=== PATIENT | male | born 1935 | race Caucasian/White ===

== ENCOUNTER 2025-06-05 04:46 | Emergency (ER) | payer MEDICARE, MEDICAID, SELFPAY ==
[2025-06-05] VITALS (7 sets, daily range): BP systolic 71–125; BP diastolic 44–56; PULSE 55–66; RESP 13–24; TEMP 36.3–36.4; O2SAT 92–99
--- NOTE | ~2025-06-05 | XR_ITS ---
XR chest 1V portable 06/05/2025 05:13 Indication: Status post fall. Trauma. Right-sided chest pain. Procedure: AP portable chest Comparison: 07/22/2014 Findings: Small right apical pneumothorax. There is right basilar consolidation which may represent hemorrhage or contusion given the history. Large amount of subcutaneous gas right neck and chest wall. There are multiple right rib fractures including the fifth-ninth ribs. The seventh and eighth rib fractures are displaced. Status post median sternotomy for CABG. Heart size normal. Left lung clear. Impression: 1: Multiple acute right rib fractures with displacement of the right seventh and eighth rib fractures. 2: Small right apical pneumothorax. 3: Right basilar consolidation may represent hemorrhage, contusion or less likely pneumonia. 4: Extensive subcutaneous emphysema of the right neck and chest wall. Reviewed, dictated and finalized at location O. Impression: 1: Multiple acute right rib fractures with displacement of the right seventh an d eighth rib fractures. 2: Small right apical pneumothorax. 3: Right basilar consolidation may represent hemorrhage, contusion or less like ly pneumonia. 4: Extensive subcutaneous emphysema of the right neck and chest wall.
--- NOTE | 2025-06-05 05:00 | PC.NURSE ---
DR CHAVEZ AT THE BEDSIDE. CREPITIS NOTED TO RIGHT CHEST WALL. TENDERNESS TO RIGHT CHEST WALL
--- NOTE | 2025-06-05 05:08 | PC.NURSE ---
XRAY AT THE BEDSIDE
--- NOTE | 2025-06-05 05:10 | PC.NURSE ---
DR CHAVEZ REQUESTED TRAUMA SERVICES AT [facility] DUE TO MULTIPLE RIGHT SIDE RIB FRACTURES, CREPITIS, POSSIBLE PNEUMOTHORAX
--- NOTE | 2025-06-05 05:12 | ED_ITS ---
HPI - Fall General Chief Complaint: Fall Stated Complaint: fall at home Time Seen by Provider: 06/05/25 05:08 Source: patient and family Limitations: no limitations History of Present Illness HPI Narrative: 89 years old white male came to the ED by private car from home with right chest pain after falling on pH of a Pap top Related Data Allergies Allergy/AdvReac Type Severity Reaction Status Date / Time No Known Allergies Allergy Verified 06/05/25 05:12 Review of Systems Review of Systems: All systems reviewed & are unremarkable except as noted in HPI and below Exam Narrative: General appearance: Well-developed, well-nourished Skin: pale skin Head: Normocephalic, nontraumatic Eyes: Clear conjunctiva ENT: Oropharynx normal, ears normal, nose normal Neck: Supple, nontender Chest and respiratory: Airway patent, no respiratory distress, no accessory muscle use, right subcutaneous emphysema severe tenderness of the right chest, no bruises or swelling or rash Heart: Regular rate/rhythm Abdomen: Soft, nontender, no organomegaly, quiet bowel sounds Vascular: Normal peripheral pulses, normal capillary refill. Musculoskeletal: Normal range of motion, nontender back Neurologic: Alert and oriented ?3, DIRECTOR SAFETY is normal as tested, no gross motor deficit Course Vital Signs Vital signs: Vital Signs Temperature 36.4 C 06/05/25 04:45 Pulse Rate 66 06/05/25 04:45 Respiratory Rate 18 06/05/25 04:45 Blood Pressure 85/52 L 06/05/25 04:45 Pulse Oximetry 98 06/05/25 04:45 Oxygen Delivery Room Air 06/05/25 04:45 Temperature 36.4 C 06/05/25 04:45 Pulse Rate 60 06/05/25 05:47 Respiratory Rate 22 H 06/05/25 05:47 Blood Pressure 125/51 L 06/05/25 05:47 Pulse Oximetry 99 06/05/25 05:47 Oxygen Delivery Nasal Cannula 06/05/25 05:32 Oxygen Flow Rate 2 06/05/25 05:32 MDM - Fall MDM Narrative Medical decision making narrative: patient came to the ED after having a fall against the bath top at home. Vital signs showing blood pressure 85/52, otherwise insignificant Physical examination showing severe tenderness right chest and subcutaneous emphysema Differential diagnosis rib fracture, flail chest liver injury, pulmonary contusion, pneumothorax, hemothorax Chest portable chest x-ray showed multiple right rib fracture and subcutaneous emphysema normal saline IV started, blood pressure is improving, currently 106/55, oxygenation 99% on 2 L Patient is accepted to [facility] discussed with Dr. Kent Differential Diagnosis Differential diagnosis: Likely other ( as above) Imaging Data My impression: portable chest x-ray showed multiple rib fracture on the right side with extensive subcutaneous emphysema Critical Care Time Critical Care Time Critical Care Time: Yes Total Critical Care Time: 30 Discharge Plan Discharge Clinical Impression: Acute traumatic injury of chest wall, Subcutaneous emphysema due to trauma Patient Disposition: Acute Care Hospital Condition: Guarded Prognosis Additional Instructions: transfer to [facility] Patient Language: [place] Follow-up/Referrals: Valentin Braswell MD [Primary Care Provider, Internal Medicine]
[2025-06-05] MEDS: SODIUM CHLORIDE 0.9% IV 1,000 ML 999 ML IV CONT (05:17)
--- OUTSIDE RECORDS SUMMARY | 2025-06-05 05:40 | XMS_ITS | Encounter Summary ---
Author Organization [facility] Address [address] [place] [address] Phone Care Team Providers Care Director Of Student Aid Name Role Phone Susana Estrada MD Primary Care Provider [phone] Valentin Braswell MD Primary Care Provider [phone] Encounter Details Date Type Department Care Team (Late st Contact Info) Description 12/13/2017 Orders Only [facility] ProviderTrip MD [address] [place] [address] Social History Tobacco Use Types Packs/Day Years Used Date Smoking Tobacco: Former Sex and Gender Information Value Date Recorded Sex Assigned at Not on file 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 Historical Provider [facility] PROCE DURES Final Result * CARDIOLOGY REPORT (12/13/2017) Anatomical Region Laterality Modality Other Narrative 12/13/2017 Ordered by an unspecified provider. Historical Provider CV CARDIAC SERVICES PROCE DURES Final Result documented in this encounter Visit Diagnoses Not on filedocumented in this encounter Care Teams Director Of Student Aid Relationship Specialty Start Date End Date Susana Estrada MD [address] [place] [address] PCP - General 02/13/17 02/05/24 Valentin Braswell MD [address] [place] [address] PCP - General Internal Medicine 02/06/24 documented as of this encounter
--- OUTSIDE RECORDS SUMMARY | 2025-06-05 05:40 | XMS_ITS | Encounter Summary ---
Author Organization [facility] Address [address] [place] [address] Phone Care Team Providers Care Tele Marketing Executive Name Role Phone Susana Estrada MD Primary Care Provider [phone] Valentin Braswell MD Primary Care Provider [phone] Encounter Details Date Type Department Care Team (Late st Contact Info) Description 05/21/2016 Orders Only [facility] ProviderTrip MD [address] [place] [address] Social History Tobacco Use Types Packs/Day Years Used Date Smoking Tobacco: Never Assessed Sex and Gender Information Value Date Recorded Sex Assigned at Not on file 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 Historical Provider [facility] CARDIAC SERVICES PROCE DURES Final Result * CARDIOLOGY REPORT (05/21/2016) Anatomical Region Laterality Modality Other Narrative 05/21/2016 Ordered by an unspecified provider. Historical Provider [facility] CARDIAC SERVICES PROCE DURES Final Result documented in this encounter Visit Diagnoses Not on filedocumented in this encounter Care Teams Tele Marketing Executive Relationship Specialty Start Date End Date Susana Estrada MD [address] [place] [address] PCP - General 02/13/17 02/05/24 Valentin Braswell MD [address] [place] [address] PCP - General Internal Medicine 02/06/24 documented as of this encounter
--- OUTSIDE RECORDS SUMMARY | 2025-06-05 05:40 | XMS_ITS | Encounter Summary ---
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 Pt sustained GLF at approx 0430. OSH MD reporting multiple rib fxs a lot of them, all top to bottom. No pneumo seen on scans, 95% RA. BP when he got to the osh 88/55, now 71/44. OSH giving NS bolus. Diffuse subQ emphysema over chest. Kaity Lowery RN documented in this encounter Plan of Treatment Not on file documented as of this encounter Visit Diagnoses Not on filedocumented in this encounter Care Teams Carton Catcher Relationship Specialty Start Date End Date Valentin Braswell MD PCP - General Internal Medicine 02/06/24 documented as of this encounter
--- OUTSIDE RECORDS SUMMARY | 2025-06-05 05:40 | XMS_ITS | Clinical Summary ---
Author Organization [facility] Address [address] [place], [place] [id number] Care Team Providers Care Clinical Data Specialist Name Role Phone Radha Lees Primary Care Provider Social History Tobacco Use Types Packs/Day Years Used Date Smoking Tobacco: Never Assessed Sex and Gender Information Value Date Recorded Sex Assigned at Not on file Legal Sex Male 4:55 PM CDT Gender Identity Not on file Sexual Orientation Not on file Plan of Treatment Health Maintenance Due Date Last Done Comments DTaP, Tdap and Td Vaccines ( 1 - Tdap) 01/31/1954 Pneumococcal Vaccine: 50+ Ye ars (1 of 1 - PCV) 01/31/1986 Zoster Vaccines (1 of 2) 01/31/1986 Annual Medicare Wellness Visit 01/31/2001 RSV Immunization or 60+ Years (1 - 1-dose 75+ series) 01/31/2011 COVID-19 Vaccine (2023-2 5 season) 2024 Meningococcal B Vaccine Aged Out No l onger eligible based on patient's age to complete this topic Meningococcal Vaccine Aged Out No alice sebastian eligible based on patient's age to complete this topic RSV Immunizations Under 20 Months Aged Out No longer eligible based on patient's age to complete this topic Insurance MED [facility] MEDICARE SOLUTIONS Care Teams Clinical Data Specialist Relationship Specialty Start Date End Date Radha Lees PA [address] [place] [address] PCP - General PHYSICIAN DIRECTOR OF MARKETING AND PROMOTIONS 09/07/24
--- OUTSIDE RECORDS SUMMARY | 2025-06-05 05:40 | XMS_ITS | Encounter Summary ---
Author Organization [facility] Address [address] [place] [address] Phone Care Team Providers Care Regional Owner Operator Truck Driver Name Role Phone Susana Estrada MD Primary Care Provider [phone] Valentin Braswell MD Primary Care Provider [phone] Encounter Details Date Type Department Care Team (Late st Contact Info) Description 08/23/2016 Orders Only [facility] ProviderTrip MD [address] [place] [address] Social History Tobacco Use Types Packs/Day Years Used Date Smoking Tobacco: Never Assessed Sex and Gender Information Value Date Recorded Sex Assigned at Not on file 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 Historical Provider [facility] GIANCARLO MCCOY Final Result documented in this encounter Visit Diagnoses Not on filedocumented in this encounter Care Teams Regional Owner Operator Truck Driver Relationship Specialty Start Date End Date Susana Estrada MD [address] [place] [address] PCP - General 02/13/17 02/05/24 Valentin Braswell MD [address] [place], [place] [id number] PCP - General Internal Medicine 02/06/24 documented as of this encounter
--- OUTSIDE RECORDS SUMMARY | 2025-06-05 05:40 | XMS_ITS | Encounter Summary ---
Author Organization [facility] Address [address] [place] [address] Phone Care Team Providers Care Rack Cleaner Name Role Phone Susana Estrada MD Primary Care Provider [phone] Valentin Braswell MD Primary Care Provider [phone] Encounter Details Date Type Department Care Team (Late st Contact Info) Description 08/30/2017 Orders Only [facility] ProviderTrip MD [address] [place] [address] Social History Tobacco Use Types Packs/Day Years Used Date Smoking Tobacco: Never Assessed Sex and Gender Information Value Date Recorded Sex Assigned at Not on file 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 Historical Provider [facility] CARDIAC SERVICES GIANCARLO MCCOY Final Result documented in this encounter Visit Diagnoses Not on filedocumented in this encounter Care Teams Rack Cleaner Relationship Specialty Start Date End Date Susana Estrada MD [address] [place] [address] PCP - General 02/13/17 02/05/24 Valentin Braswell MD [address] [place], [place] [id number] PCP - General Internal Medicine 02/06/24 documented as of this encounter
--- OUTSIDE RECORDS SUMMARY | 2025-06-05 05:40 | XMS_ITS | Encounter Summary ---
Author Organization [facility] Address [address] [place] [address] Phone Care Team Providers Care Carton Wrapper Name Role Phone Susana Estrada MD Primary Care Provider [phone] Valentin Braswell MD Primary Care Provider [phone] Encounter Details Date Type Department Care Team (Late st Contact Info) Description 02/27/2018 Orders Only [facility] ProviderTrip MD [address] [place] [address] Social History Tobacco Use Types Packs/Day Years Used Date Smoking Tobacco: Former Sex and Gender Information Value Date Recorded Sex Assigned at Not on file 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 Historical Provider [facility] CARDIAC SERVICES PROCE DURES Final Result * CARDIOLOGY REPORT (02/27/2018) Anatomical Region Laterality Modality Other Narrative 02/27/2018 Ordered by an unspecified provider. Historical Provider CV CARDIAC SERVICES PROCE DURES Final Result documented in this encounter Visit Diagnoses Not on filedocumented in this encounter Care Teams Carton Wrapper Relationship Specialty Start Date End Date Susana Estrada MD [address] [place] [address] PCP - General 02/13/17 02/05/24 Valentin Braswell MD [address] [place] [address] PCP - General Internal Medicine 02/06/24 documented as of this encounter
--- OUTSIDE RECORDS SUMMARY | 2025-06-05 05:40 | XMS_ITS | Clinical Summary ---
Author Organization [facility] Address [address] [place] [id number] Care Team Providers Care Auditor/Quality Name Role Phone Valentin Braswell MD Primary Care Provider [phone] Allergies No known active allergies Medications tamsulosin (FLOMAX) 0.4 mg extended release capsule daily. Acti ve potassium chloride ER (KLOR-CON) 10 mEq CR tablet daily. Active metFORMIN (GLUCOPHAGE) 500 mg tablet 2 times daily. Active furosemide (LASIX) 40 mg tablet TAKE 1 TABLETS DAILY Active atorvastatin (LIPITOR) 40 mg tablet TAKE ONE TABLET BY MOUTH ONCE DAILY 10/27/2015 Active aspirin 81 mg tablet daily. Active metoprolol XL (TOPROL-XL) 50 mg extended release tablet Take 1 tablet (50 mg total) by mouth daily 30 tablet 02/18/2025 Active losartan (COZAAR) 25 mg tablet Take 1 tablet (25 mg total) by mouth daily 30 tablet 04/05/2025 6 Active Active Problems Problem Noted Date Diagnosed Date Pre-operative cardiovascular examination 024 Assessment & Plan (02/06/2024 9:30 PM CDT): Planning for tooth extraction. Cardiac conditions stable. Please give antibiotic prophylaxis. Automatic implantable cardiac defibrillator in s itu 05/24/2020 Assessment & Plan (02/06/2024 9:25 PM CDT): EP managing. Hyperlipidemia 09/27/2019 Ischemic cardiomyopathy 04/03/2018 Assessment & Plan (02/06/2024 9:28 PM CDT): ICM with HFrEF. Endorsing NYHA Class I symptoms. Euvolemic upon examination. Continue losartan and lasix. Taken off metoprolol for unknown reason. Will request PCP documentation for review Peripheral artery disease 04/03/2018 Chronic systolic heart failure 11/26/2016 Atrial flutter 05/21/2016 Assessment & Plan (02/06/2024 9:25 PM CDT): Status post atrial flutter ablation. EP visit today. Taken off metoprolol for unknown reason. Will request PCP documentation for review Hypertension 02/15/2016 Surgical follow-up care 01/06/2016 Paroxysmal atrial fibrillation 09/26/2015 S/P AVR (aortic valve replacement) 09/26/2015 Assessment & Plan (02/06/2024 9:26 PM CDT): Bioprosthetic AVR in 2014. Asymptomatic. SBE prophylaxis. Continue ASA. Angina pectoris 08/09/2015 Shortness of breath 08/09/2015 Atherosclerosis of coronary artery 08/09/2015 Assessment & Plan (02/06/2024 9:24 PM CDT): CAD s/p CABG. No chest pain or anginal equivalent. Continue ASA, atorvastatin and losartan. Taken off metoprolol for unknown reason. Will request PCP documentation for review. Stenosis of carotid artery 08/05/2015 Assessment & Plan (02/06/2024 9:27 PM CDT): S/p left carotid endarterectomy. Continue ASA and atorvastatin. Resolved Problems Problem Noted Date Diagnosed Date Resolved Date Hx of CABG 11/02/2015 05/24/2020 Encounters Date Type Department Care Team Description 06/05/2025 Emergency [facility] Emergency Department [address] [place] [address] 05/04/2025 Results Follow-Up [facility] Cardiology [address] [facility] 8th [place] [address] [place] [address] Gerson Nettles MD Basic metabolic panel 05/03/2025 Orders Only [facility] Cardiology [address] [facility] [address] [place] [address] Gerson Nettles MD 04/29/2025 Telephone [facility] Cardiology [address] [facility] 8th [place] [address] [place] [address] WootenMarcelle pastor Additional Services Or Orders 04/16/2025 Orders Only [facility] Cardiology [address] [facility] 8th [place] [address] [place] [address] Renny Crawford MD 04/16/2025 Telephone [facility] Cardiology [address] [facility] 8th [place] [address] [place] [address] Jonathan Nunes MD 03/25/2025 Results Follow-Up [facility] Cardiology [address] [place] [address] 8th [place] [address] [place] [address] Cici Odom RN B-type natriuretic peptide 03/22/2025 Orders Only [facility] Cardiology [address] [facility] [address] [place] [address] Gerson Nettles MD 03/09/2025 Results Follow-Up [facility] Cardiology [address] [place] [address] 8th [place] [address] [place] [address] Gerson Nettles MD Transthoracic Echo (TTE) Complete W Doppler/CF 03/05/2025 12:22 PM CDT - 03/05/2025 11:59 PM CDT Hospital Encounter [facility] Cardiac Diagnostic Lab [address] [facility] [address] [place] [address] S/P AVR (aortic valve replacement) Discharge Disposition: Discharge to home or self care from Last 3 Months Family History Medical History Relation Name Comments Stroke Mother Family history of cerebrovascular accident (CVA) - (Added by TW Conv) Relation Name Status Comments Mother Social History Tobacco Use Types Packs/Day Years Used Date Smoking Tobacco: Former Smokeless Tobacco: Never Sex and Gender Information Value Date Recorded Sex Assigned at Not on file 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 Gender Identity Not on file Sexual Orientation Not on file Obstetrics History Last Filed Vital Signs Vital Sign Reading Time Taken Comments Blood Pressure 117/76 02/18/2025 10:23 AM CDT Pulse 91 02/18/2025 10:23 AM CDT Temperature 36.9 C (98.4 F) 11/03/2020 11:00 AM PROJECT MANAGER FINANCE Respiratory Rate - - Oxygen Saturation 100% 02/18/2025 10:23 AM CDT Inhaled Oxygen Concentration - - Weight 54.7 kg (120 lb 9.6 oz) 02/18/2025 10:23 AM CDT Height 165.1 cm (5' 5) 02/18/2025 10:23 AM CDT Body Mass Index 20.07 02/18/2025 10:23 AM CDT Plan of Treatment Health Maintenance Due Date Last Done Comments Depression Screening 1935 Fall Risk Assessment 1935 DTaP/Tdap/Td Vaccine (1 - Tdap) 01/31/1947 Hepatitis B Screening 01/31/1954 Zoster Vaccine (1 of 2) 01/31/1986 Well Visit 65+ 01/31/2001 Pneumococcal vaccine 65+ (2 of 2 - PPSV23, PCV20, or PCV21) 10/16/2019 08/21/2019 Influenza Vaccine (#1) 2025 08/12/2019 Procedures Procedure Name Priority Date/Time Associated Diagnosis Comments BASIC METABOLIC PANEL Routine 05/03/2025 9:08 AM CDT DEVICE CHECK - REMOTE Routine 04/16/2025 7:38 AM CDT B-TYPE NATRIURETIC PEPTIDE Routine 03/22/2025 8:31 AM CDT TRANSTHORACIC ECHO (TTE) COMPLETE W DOPPLER/CF W CONTRAST Routine 03/05/2025 2:16 PM CDT S/P AVR (aortic valve replacement) from Last 3 Months Results * (ABNORMAL) Basic metabolic panel (05/03/2025 9:08 AM CDT) Glucose 102(H) 65 - 99 mg/dL [facility] Comment: Fasting reference interval For someone without known diabetes, a glucose value between 100 and 125 mg/dL is consistent with prediabetes and should be confirmed with a follow-up test. BUN 17 7 - 25 mg/dL [facility] Creatinine 0.91 0.70 - 1.22 mg/dL [facility] eGFR 81 > OR = 60 mL/min/1.7 3m2 [facility] BUN/creat ratio SEE NOTE: 6 - 22 (calc) [facility] Comment: Not Reported: BUN and Creatinine are within reference range. Sodium 140 135 - 146 mmol/L [facility] Potassium, pl 4.6 3.5 - 5.3 mmol/L [facility] Chloride 108 98 - 110 mmol/L [facility] CO2 24 20 - 32 mmol/L [facility] Calcium 9.2 8.6 - 10.3 mg/dL [facility] 05/03/2025 9:08 AM CDT 05/03/2025 9:09 AM CDT us Gerson Nettles MD LAB BLOOD ORDERABLES Final Re sult [facility] [address] [place] [address] * DEVICE CHECK - REMOTE (04/16/2025 7:38 AM CDT) Anatomical Region Laterality Modality Other 04/16/2025 7:38 AM CDT Narrative 04/19/2025 9:07 AM CDT Interpretation Summary: Battery and Leads (BL) Normal parameters noted on battery and lead(s) --- 9 months remaining longevity (implanted 2015). Lead impedance, sensing, and threshold trends stable and appropriate. No short V-V intervals. Less than 1 year of battery longevity noted Presenting Rhythm (PA) Atrial Pacing-Ventricular Sensing (AP-VS) --- AP/VS 60 bpm. Arrhythmic events (AE) No new arrhythmic events in monitoring period --- Since 02/18/25: No AHR or VHR episodes. Transmission Information (TI) Device Summary Report Follow Up (FU) Patient's primary treating physician will be apprised of findings Procedure Note Renny Crawford MD - 04/19/2025 Interpretation Summary: Battery and Leads (BL) Normal parameters noted on battery and lead(s) --- 9 months remaininglongevity (implanted 2015). Lead impedance, sensing, and thresholdtrends stable and appropriate. No short V-V intervals. Less than 1 year of battery longevity noted Presenting Rhythm (PA) Atrial Pacing-Ventricular Sensing (AP-VS) --- AP/VS 60 bpm. Arrhythmic events (AE) No new arrhythmic events in monitoring period --- Since 02/18/25: No AHRor VHR episodes. Transmission Information (TI) Device Summary Report Follow Up (FU) Patient's primary treating physician will be apprised of findings us Renny Crawford MD CV CARDIAC SERVICES [facility] Final Result * (ABNORMAL) B-type natriuretic peptide (03/22/2025 8:31 AM CDT) Pathologist [facility] B type natriuretic peptide 167(H) <100 pg/mL [facility] Comment: BNP levels increase with age in the general population with the highest values seen in individuals greater than 75 years of age. Reference: J. Am. Raphael. Cardiol. 2002; 40:976-982. 03/22/2025 8:31 AM CDT 03/22/2025 8:32 AM CDT us Gerson Nettles MD LAB BLOOD ORDERABLES Final Re sult [facility] [address] [place] [address] * TRANSTHORACIC ECHO (TTE) COMPLETE W DOPPLER/CF W CONTRAST (03/05/2025 2:16 PM CDT) Pathologist [facility] EF Mod BP 35 % CONS SCIMAGE Anatomical Region Laterality Modality Ultrasound 03/05/2025 1:20 PM CDT Narrative 03/09/2025 2:38 AM CDT [facility] Cardiac [place] [address] Transthoracic Echocardiographic Report Patient Name: ZULAY MACIAS L : 1935 (89y 1m) Gender: M Study Date: 03/05/2025 01:20:23 PM Ht(Inch): 65 Wt(Lb): 119.93 BSA: 1.58 Edger Saw Operator: Michelle Dodson Location: [facility] Order Provider: GERSON NETTLES Heart Rate: 88 BMI: 19.96 BP: 113 / 60 Ref Provider: GERSON NETTLES PROCEDURES: Echocardiographic Report: Transthoracic complete echo with contrast, 2D, spectral and tissue Doppler, color flow Doppler, M-mode. Contrast: Contrast Enhancement was Employed: After initial imaging due to sub- optimal quality related to co-morbidity defined by patient's body habitus, due to suboptimal image quality with inadequate visualization of at least 2 of 16 LV wall segments in any view after initial imaging. Perflutren contrast was administered using the volume necessary to obtain adequate images and. 0.6 ml Optison Administered, (2.4 ml wasted). INDICATIONS: Z95.2 Presence of prosthetic heart valve. CONCLUSIONS: 1. Mildly dilated left ventricle based on volume index. Normal LV wall thickness. Moderately depressed left ventricular systolic function. The Ejection Fraction (Mak's) is measured at 35 %. Grade II diastolic dysfunction (elevated mean LA pressure). The average global longitudinal strain is abnormal. 2. Resting Segmental Wall Motion Analysis: Total wall motion score is 2.47. There is akinesis of the entire inferior wall. There is akinesis of the entire inferoseptal wall. There is akinesis of the apical cap. There is akinesis of the mid inferolateral wall. The remaining left ventricular segments demonstrate hypokinesis. 3. Normal right ventricular size. Moderate right ventricular hypokinesis. Wire noted in the right heart. 4. A bioprosthetic valve is present in the aortic position with physiologic performance. ATTESTATION: I have personally reviewed and interpreted this study without fellow or resident. - DISCLAIMER: The study images and the final report will be retained in the patient chart by the Echo Laboratory for the legally required time period. This chart constitutes the legal record of any testing performed. FINDINGS: Left Ventricle: Mildly dilated left ventricle based on volume index. Normal LV wall thickness. Moderately depressed left ventricular systolic function. The Ejection Fraction (Mak's) is measured at 35 %. Grade II diastolic dysfunction (elevated mean LA pressure). The average global longitudinal strain is abnormal. The LV global strain is: -8.0 %. Resting Segmental Wall Motion Analysis: Total wall motion score is 2.47. There is akinesis of the entire inferior wall. There is akinesis of the entire inferoseptal wall. There is akinesis of the apical cap. There is akinesis of the mid inferolateral wall. The remaining left ventricular segments demonstrate hypokinesis. Right Ventricle: Normal right ventricular size. Moderate right ventricular hypokinesis. Wire noted in the right heart. Left Atrium: The left atrium is normal in size. Right Atrium: The right atrium is normal in size. Mitral Valve: Normal Mitral Valve Structure. Mild mitral valve regurgitation. Aortic Valve: The mean transaortic gradient is 6 mmHg. The aortic valve area by the continuity equation (using VTI) is 1.56 cm2. Aortic valve dimensionless index is 0.52. 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 s/p aortic valve replacement with 23 mm Magna Ease valve (08/15/2015);. Tricuspid Valve: Normal tricuspid valve structure. No tricuspid regurgitation. No tricuspid valve stenosis. Pulmonic Valve: Normal pulmonic valve structure. No pulmonic regurgitation. No pulmonic valve stenosis present. Pericardium: Normal pericardium without pericardial effusion. Aorta: The ascending aorta is normal in size when indexed. PASP: Normal estimated pulmonary artery systolic pressure. Rhythm: Normal Sinus rhythm was seen during the study. MEASUREMENTS: 2D/MM Value Range Doppler Value Range LVIDd 2D 4.97 cm [ 4.20 - 5.80 ] AV Peak Kolton 1.7 m/s [ 1.0 - 1.7 ] LVIDs 2D 3.84 cm [ 2.50 - 4.00 ] AV Peak PG 11.56 mmHg IVSd 2D 0.94 cm [ 0.60 - 1.00 ] AV Mean PG 6 mmHg LVPWd 2D 0.72 cm [ 0.60 - 1.00 ] AV VTI 40.5 cm LV Thickness Ratio 1.3 LVOT Peak Kolton 0.9 m/s [ 0.7 - 1.1 ] LV FS 2D 22.73 % [ 25.00 - 43.00 ] LVOT Peak PG 3.24 mmHg LV Mass 2D 144.86 g LVOT Mean PG 2 mmHg LV Mass Index 2D 91.68 g/m2 LVOT VTI 21.0 cm RWT 0.29 LVOT Diam 1.96 cm EDV Mod BP 119.62 ml [ 62.00 - 150.00 ] WOO VTI 1.56 cm2 LV EDV Index 75.71 ml/m2 LVOT/AV VTI 0.52 - Dimensionless index (DVI) ESV Mod BP 78.02 ml [ 21.00 - 61.00 ] MV E Peak Kolton 0.7 m/s [ 0.6 - 1.3 ] EF Mod BP 35 % [ 52 - 72 ] MV A Peak Kolton 0.9 m/s [ 1.0 - 1.2 ] LV GLS -8.0 % [ -25.0 - -18.0 ] MV E/A 0.8 ratio [ 0.8 - 1.5 ] LA Length 4C 5.18 cm MV Decel Time 226.04 msec [ 104.00 - 258.00 ] LA Length 2C 5.39 cm Med E` Kolton 4.9 cm/sec [ 8.0 - 25.0 ] LA Volume BP 42.13 ml Lat E` Kolton 5.8 cm/sec [ 10.0 - 25.0 ] LA Volume Index 26.66 ml/m2 [ 16.00 - 34.00 ] Average E/E` 13.08 RV Base Dimen 2D 3.2 cm [ 2.5 - 4.2 ] RV S` 5.80 cm/sec TAPSE 1.10 cm [ 1.71 - 5.00 ] RA Volume 27.66 ml RA Volume Index 17.51 ml/m2 Asc Ao Diam 2D 2.45 cm Asc Ao Index 1.55 cm/m2 Electronically Signed By: Jonn Michaud MD 03/09/2025 2:38:00 AM CDT CC: Gerson Nettles MD Wall Motion Analysis - Resting Procedure Note Jonn Michaud MD - 03/09/2025 [facility] Cardiac [place] [address] Transthoracic Echocardiographic Report Patient Name: ZULAY MACIAS L : 1935 (89y 1m) Gender: M Study Date: 03/05/2025 01:20:23 PM Ht(Inch): 65 Wt(Lb): 119.93 BSA: 1.58 Edger Saw Operator: Michelle Dodson Location: [facility] Order Provider: GERSON NETTLES Heart Rate: 88 BMI: 19.96 BP: 113 / 60 Ref Provider: GERSON NETTLES PROCEDURES: Echocardiographic Report: Transthoracic complete echo with contrast, 2D,spectral and tissue Doppler, color flow Doppler, M-mode. Contrast: Contrast Enhancement was Employed: After initial imaging due tosub- optimal quality related to co-morbidity defined by patient's body habitus, due tosuboptimal image quality with inadequate visualization of at least 2 of 16 LV wallsegments in any view after initial imaging. Perflutren contrast was administered using thevolume necessary to obtain adequate images and. 0.6 ml Optison Administered, (2.4ml wasted). INDICATIONS: Z95.2 Presence of prosthetic heart valve. CONCLUSIONS: 1. Mildly dilated left ventricle based on volume index. Normal LV wallthickness. Moderately depressed left ventricular systolic function. The EjectionFraction (Mak's) is measured at 35 %. Grade II diastolic dysfunction (elevatedmean LA pressure). The average global longitudinal strain is abnormal. 2. Resting Segmental Wall Motion Analysis: Total wall motion score is2.47. There is akinesis of the entire inferior wall. There is akinesis of the entireinferoseptal wall. There is akinesis of the apical cap. There is akinesis of the midinferolateral wall. The remaining left ventricular segments demonstrate hypokinesis. 3. Normal right ventricular size. Moderate right ventricular hypokinesis.Wire noted in the right heart. 4. A bioprosthetic valve is present in the aortic position withphysiologic performance. ATTESTATION: I have personally reviewed and interpreted this study without fellow orresident. - DISCLAIMER: The study images and the final report will be retained in the patientchart by the Echo Laboratory for the legally required time period. This chart constitutesthe legal record of any testing performed. FINDINGS: Left Ventricle: Mildly dilated left ventricle based on volume index.Normal LV wall thickness. Moderately depressed left ventricular systolic function. TheEjection Fraction (Mak's) is measured at 35 %. Grade II diastolic dysfunction (elevatedmean LA pressure). The average global longitudinal strain is abnormal. The LVglobal strain is: -8.0 %. Resting Segmental Wall Motion Analysis: Total wall motion score is 2.47.There is akinesis of the entire inferior wall. There is akinesis of the entireinferoseptal wall. There is akinesis of the apical cap. There is akinesis of the midinferolateral wall. The remaining left ventricular segments demonstrate hypokinesis. Right Ventricle: Normal right ventricular size. Moderate right ventricularhypokinesis. Wire noted in the right heart. Left Atrium: The left atrium is normal in size. Right Atrium: The right atrium is normal in size. Mitral Valve: Normal Mitral Valve Structure. Mild mitral valveregurgitation. Aortic Valve: The mean transaortic gradient is 6 mmHg. The aortic valvearea by the continuity equation (using VTI) is 1.56 cm2. Aortic valve dimensionlessindex is 0.52. 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 s/p aortic valvereplacement with 23 mm Magna Ease valve (08/15/2015);. Tricuspid Valve: Normal tricuspid valve structure. No tricuspidregurgitation. No tricuspid valve stenosis. Pulmonic Valve: Normal pulmonic valve structure. No pulmonicregurgitation. No pulmonic valve stenosis present. Pericardium: Normal pericardium without pericardial effusion. Aorta: The ascending aorta is normal in size when indexed. PASP: Normal estimated pulmonary artery systolic pressure. Rhythm: Normal Sinus rhythm was seen during the study. MEASUREMENTS: 2D/MM Value Range DopplerValue Range LVIDd 2D 4.97 cm [ 4.20 - 5.80 ] AV Peak Vel1.7 m/s [ 1.0 - 1.7 ] LVIDs 2D 3.84 cm [ 2.50 - 4.00 ] AV Peak PG11.56 mmHg IVSd 2D 0.94 cm [ 0.60 - 1.00 ] AV Mean PG6 mmHg LVPWd 2D 0.72 cm [ 0.60 - 1.00 ] AV VTI40.5 cm LV Thickness Ratio 1.3 LVOT Peak Vel0.9 m/s [ 0.7 - 1.1 ] LV FS 2D 22.73 % [ 25.00 - 43.00 ] LVOT Peak PG3.24 mmHg LV Mass 2D 144.86 g LVOT Mean PG2 mmHg LV Mass Index 2D 91.68 g/m2 LVOT VTI21.0 cm RWT 0.29 LVOT Diam1.96 cm EDV Mod BP 119.62 ml [ 62.00 - 150.00 ] WOO VTI1.56 cm2 LV EDV Index 75.71 ml/m2 LVOT/AV VTI0.52 - Dimensionless index (DVI) ESV Mod BP 78.02 ml [ 21.00 - 61.00 ] MV E Peak Vel0.7 m/s [ 0.6 - 1.3 ] EF Mod BP 35 % [ 52 - 72 ] MV A Peak Vel0.9 m/s [ 1.0 - 1.2 ] LV GLS -8.0 % [ -25.0 - -18.0 ] MV E/A0.8 ratio [ 0.8 - 1.5 ] LA Length 4C 5.18 cm MV Decel Nobu502.04 msec [ 104.00 - 258.00 ] LA Length 2C 5.39 cm Med E` Vel4.9 cm/sec [ 8.0 - 25.0 ] LA Volume BP 42.13 ml Lat E` Vel5.8 cm/sec [ 10.0 - 25.0 ] LA Volume Index 26.66 ml/m2 [ 16.00 - 34.00 ] Average E/E`13.08 RV Base Dimen 2D 3.2 cm [ 2.5 - 4.2 ] RV S`5.80 cm/sec TAPSE 1.10 cm [ 1.71 - 5.00 ] RA Nwxspq50.66 ml RA Volume Index17.51 ml/m2 Asc Ao Diam 2D2.45 cm Asc Ao Index1.55 cm/m2 Electronically Signed By: Jonn Michaud MD 03/09/2025 2:38:00 AM CDT CC: Gerson Nettles MD Wall Motion Analysis - Resting us Gerson Nettles MD CV ECHO PROCEDURES Final Resu lt from Last 3 Months Insurance [facility] MEDICARE ADVANTAGE MEDICARE [facility] Address: [address] [address] [employer] MEDICARE ADVANTAGE [facility] Care Teams Auditor/Quality Relationship Specialty Start Date End Date Valentin Braswell MD PCP - General Internal Medicine 02/06/24
--- NOTE | 2025-06-05 05:45 | PC.NURSE ---
PATIENT AND FAMILY HAVE BEEN UPDATED ON PLAN OF CARE. PATIENT TO BE FLOWN TO [facility]. FAMILY TO GO TO EMERGENCY ROOM ON THEIR ARRIVAL. FAMILY VERBALIZED UNDERSTANDING
--- NOTE | 2025-06-05 06:04 | PC.NURSE ---
AIR EVAC AT THE BEDSIDE
== END 2025-06-05 06:13 | disposition short-term general hospital (02) ==
PROVIDERS: Emergency Provider Emergency Medicine; PCP Internal Medicine
DX: T79.7XXA Traumatic subcutaneous emphysema, initial encounter (principal); S29.9XXA Unspecified injury of thorax, initial encounter; W19.XXXA Unspecified fall, initial encounter
CPT/HCPCS: 71045; 96360; 99285; J7030

== ENCOUNTER 2025-07-18 12:02 | Outpatient (NON) | payer MEDICARE, MEDICAID, SELFPAY ==
[2025-07-18 12:14] LABS: Hematocrit 34.3 % (37.0-46.0); Hemoglobin 11.1 g/dL (12.4-15.3); Mean Corpuscular HGB Conc 32.4 g/dL (32-36); Mean Corpuscular Hemoglobin 31.3 pg (27.0-31.0); Mean Corpuscular Volume 96.6 fL (78.0-102.0); Platelet Count Result 297 K/mm3 (150-420); Red Blood Count 3.55 M/mm3 (4.70-6.10); White Blood Count 6.7 K/mm3 (4.8-10.8)
[2025-07-18 12:29] LABS: Alanine Aminotransferase 31 U/L (6-50); Albumin Level 3.5 g/dL (3.5-5.1); Alkaline Phosphatase 116 U/L (38-126); Anion Gap 7 mmol/L (4-12); Aspartate Amino Transferase 57 U/L (17-59); Bilirubin,Total 0.4 mg/dL (0.2-1.3); Blood Urea Nitrogen 16 mg/dL (9-20); CRP < 0.5 mg/dL (<1.0); Calcium 9.3 mg/dL (8.4-10.2); Carbon Dioxide 28 mmol/L (22-30); Chloride 103 mmol/L (98-107); Estimated Glomerular Filt Rate > 60; Glucose 117 mg/dL (65-110); Osmolality Calculated 288 mOsm/kg (285-295); Potassium 4.2 mmol/L (3.4-5.0); Sodium 138 mmol/L (137-145); Total Protein 7.5 g/dL (6.3-8.2)
[2025-07-18 12:35] LABS: NT Pro B Type Natriuretic Pept 4160 pg/mL (19.9-100)
[2025-07-18 12:57] LABS: Thyroid Stimulating Hormone 0.937 uIU/mL (0.465-4.680)
== END 2025-07-18 12:03 | disposition home or self-care (01) ==
LOC: CHSLAB 12:03
PROVIDERS: PCP Internal Medicine; Visit Provider Internal Medicine
DX: R33.9 Retention of urine, unspecified (principal); I25.10 Atherosclerotic heart disease of native coronary artery without angina pectoris; R53.83 Other fatigue; I11.0 Hypertensive heart disease with heart failure
CPT/HCPCS: 36415; 80053; 83880; 84443; 85027; 86140

== ENCOUNTER 2025-08-05 15:58 | Outpatient (NON) | payer MEDICARE, MEDICAID, SELFPAY ==
[2025-08-05 16:16] LABS: Hematocrit 33.8 % (37.0-46.0); Hemoglobin 10.8 g/dL (12.4-15.3); Mean Corpuscular HGB Conc 32.0 g/dL (32-36); Mean Corpuscular Hemoglobin 30.8 pg (27.0-31.0); Mean Corpuscular Volume 96.3 fL (78.0-102.0); Platelet Count Result 209 K/mm3 (150-420); Red Blood Count 3.51 M/mm3 (4.70-6.10); White Blood Count 6.4 K/mm3 (4.8-10.8)
[2025-08-05 16:29] LABS: Alanine Aminotransferase 24 U/L (6-50); Albumin Level 3.3 g/dL (3.5-5.1); Alkaline Phosphatase 100 U/L (38-126); Anion Gap 5 mmol/L (4-12); Aspartate Amino Transferase 32 U/L (17-59); Bilirubin,Total 0.4 mg/dL (0.2-1.3); Blood Urea Nitrogen 17 mg/dL (9-20); Calcium 8.9 mg/dL (8.4-10.2); Carbon Dioxide 27 mmol/L (22-30); Chloride 105 mmol/L (98-107); Estimated Glomerular Filt Rate > 60; Glucose 179 mg/dL (65-110); Osmolality Calculated 289 mOsm/kg (285-295); Potassium 3.8 mmol/L (3.4-5.0); Sodium 137 mmol/L (137-145); Total Protein 6.8 g/dL (6.3-8.2)
[2025-08-05 16:38] LABS: NT Pro B Type Natriuretic Pept 4750 pg/mL (19.9-100)
--- OUTSIDE RECORDS SUMMARY | 2025-08-05 16:43 | XMS_ITS | Encounter Summary ---
Author Organization [facility] Address [address] [place] [address] Phone Care Team Providers Care Is Project Manager Name Role Phone Susana Estrada MD Primary Care Provider [phone] Valentin Braswell MD Primary Care Provider [phone] Encounter Details Date Type Department Care Team (Late st Contact Info) Description 08/23/2016 Orders Only [facility] ProviderTrip MD [address] [place] [address] Social History Tobacco Use Types Packs/Day Years Used Date Smoking Tobacco: Never Assessed Sex and Gender Information Value Date Recorded Sex Assigned at Not on file 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
--- OUTSIDE RECORDS SUMMARY | 2025-08-05 16:43 | XMS_ITS | Encounter Summary ---
Author Organization [facility] Address [address] [place] [address] Phone Care Team Providers Care Electric Truck Driver Name Role Phone Susana Estrada MD Primary Care Provider [phone] Valentin Braswell MD Primary Care Provider [phone] Encounter Details Date Type Department Care Team (Late st Contact Info) Description 12/13/2017 Orders Only [facility] ProviderTrip MD [address] [place] [address] Social History Tobacco Use Types Packs/Day Years Used Date Smoking Tobacco: Former Sex and Gender Information Value Date Recorded Sex Assigned at Not on file 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
--- OUTSIDE RECORDS SUMMARY | 2025-08-05 16:43 | XMS_ITS | Encounter Summary ---
Author Organization [facility] Address [address] [place] [address] Phone Care Team Providers Care Accounting Professor Name Role Phone Susana Estrada MD Primary Care Provider [phone] Valentin Braswell MD Primary Care Provider [phone] Encounter Details Date Type Department Care Team (Late st Contact Info) Description 05/21/2016 Orders Only [facility] ProviderTrip MD [address] [place] [address] Social History Tobacco Use Types Packs/Day Years Used Date Smoking Tobacco: Never Assessed Sex and Gender Information Value Date Recorded Sex Assigned at Not on file 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
--- OUTSIDE RECORDS SUMMARY | 2025-08-05 16:43 | XMS_ITS | Encounter Summary ---
Author Organization [facility] Address [address] [place] [address] Phone Care Team Providers Care Malt House Operator Name Role Phone Susana Estrada MD Primary Care Provider [phone] Valentin Braswell MD Primary Care Provider [phone] Encounter Details Date Type Department Care Team (Late st Contact Info) Description 08/30/2017 Orders Only [facility] ProviderTrip MD [address] [place] [address] Social History Tobacco Use Types Packs/Day Years Used Date Smoking Tobacco: Never Assessed Sex and Gender Information Value Date Recorded Sex Assigned at Not on file 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
--- OUTSIDE RECORDS SUMMARY | 2025-08-05 16:44 | XMS_ITS | Encounter Summary ---
Author Organization [facility] Address [address] [place] [address] Care Team Providers Care Supervisor Bindery Name Role Phone Valentin Braswell MD Primary Care Provider [phone] Encounter Details Date Type Department Care Team (Late st Contact Info) Description 06/16/2025 Telephone [facility] [address] [facility] [address] [place] [address] Santiago Navas Social History Tobacco Use Types Packs/Day Years Used Date Smoking Tobacco: Former Smokeless Tobacco: Never Personal Safety Answer Date Recorded Have you ever been in or are you currently in a harmful physical or emotional relationship or is someone making you feel afraid or unsafe? 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
--- OUTSIDE RECORDS SUMMARY | 2025-08-05 16:44 | XMS_ITS | Encounter Summary ---
Author Organization [facility] Address [address] [place] [address] Phone Care Team Providers Care Bottom Wheeler Name Role Phone Susana Estrada MD Primary Care Provider [phone] Valentin Braswell MD Primary Care Provider Encounter Details Date Type Department Care Team (Late st Contact Info) Description 02/27/2018 Orders Only [facility] ProviderTrip MD [address] [place] [address] Social History Tobacco Use Types Packs/Day Years Used Date Smoking Tobacco: Former Sex and Gender Information Value Date Recorded Sex Assigned at Not on file 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
--- OUTSIDE RECORDS SUMMARY | 2025-08-05 16:44 | XMS_ITS | Clinical Summary ---
Author Organization [facility] Address [address] [place] [address] Care Team Providers Care Pediatrician/Medical Doctor Name Role Phone Radha Lees Primary Care Provider [phone] Encounters Date Type Department Care Team Description 06/15/2025 Telephone [facility] Care Management [address] [place] [address] Elizabeth Phillip, targeteer (Swing bed referral to [facility] from [facility]/) from Last 3 Months Social History Tobacco Use Types Packs/Day Years Used Date Smoking Tobacco: Never Assessed Sex and Gender Information Value Date Recorded Sex Assigned at Not on file Legal Sex Male 4:55 PM CDT Gender Identity Not on file Sexual Orientation Not on file Plan of Treatment Health Maintenance Due Date Last Done Comments Pneumococcal Vaccine: 50+ Years (1 of 1 - PCV) 01/31/1986 Zoster Vaccines (1 of 2) 01/31/1986 Annual Medicare Wellness Visit 01/31/2001 RSV Immunization or 60+ Years (1 - 1-dose 75+ series) 01/31/2011 COVID-19 Vaccine ( - 2024-2 6 season) 2025 Influenza Adult (#1) 2025 08/18/2018, 09/09/2017 DTaP, Tdap and Td Vaccines ( 2 - Td or Tdap) 06/05/2035 06/05/2025 Hepatitis A Vaccines Aged Out No long er eligible based on patient's age to complete this topic Meningococcal B Vaccine Aged Out No l onger eligible based on patient's age to complete this topic Meningococcal Vaccine Aged Out No alice sebastian eligible based on patient's age to complete this topic RSV Immunizations Under 20 Months Aged Out No longer eligible b ased on patient's age to complete this topic Insurance MED REPLACE [facility] MEDICARE SOLUTIONS Care Teams Pediatrician/Medical Doctor Relationship Specialty Start Date End Date Radha Lees PA [address] [address] PCP - General PHYSICIAN ELECTORATE OFFICER 09/07/24
--- OUTSIDE RECORDS SUMMARY | 2025-08-05 16:44 | XMS_ITS | Clinical Summary ---
Author Organization [facility] Address [address] [place] [id number] Care Team Providers Care Hereditary Cancer Program Coordinator Name Role Phone Valentin Braswlel MD Primary Care Provider [phone] Allergies No known active allergies Medications tamsulosin (FLOMAX) 0.4 mg extended release capsule daily. Active potassium chloride ER (KLOR-CON) 10 mEq CR tablet daily. Active metFORMIN (GLUCOPHAGE) 500 mg tablet 2 times daily. A ctive furosemide (LASIX) 40 mg tablet TAKE 1 TABLETS DAILY Active atorvastatin (LIPITOR) 40 mg tablet TAKE ONE TABLET BY MOUTH ONCE DAILY 6 Active aspirin 81 mg tablet daily. Active metoprolol XL (TOPROL-XL) 50 mg extended release tablet Take 1 tablet (50 mg total) by mouth daily 30 tablet 5 02/19/20 26 Active losartan (COZAAR) 25 mg tablet Take 1 tablet (25 mg total) by mouth daily 30 tablet 5 04/05/20 26 Active methocarbamoL (ROBAXIN) 500 mg tablet Take 1 tablet (500 mg total) by mouth 3 (three) times a day 5 Active oxyCODONE (ROXICODONE) 5 mg immediate release tabletIndicati ons:Pain Take 0.5 tablets (2.5 mg total) by mouth every 4 (four) hours as needed for pain 5 Active gabapentin (NEURONTIN) 100 mg capsule Take 1 capsule (100 mg total) by mouth every 8 (eight) hours 5 Active cholecalcifero l (VITAMIN D-3) 1,000 unit capsule Take 1 capsule (1,000 Units total) by mouth daily 5 Active bisacodyL (DULCOLAX) 10 mg suppositoryInd ications:const ipation Insert 1 suppository (10 mg total) into the rectum 2 (two) times a day as needed for constipation 5 Active polyethylene glycol (MIRALAX) 17 gram/dose bulk powderIndicati ons:constipati on Take 17 g by mouth daily 5 Active senna-docusate (PERICOLACE) 8.6-50 mg Take 1 tablet by mouth 2 (two) times a day 5 Active acetaminophen 500 mg capsule Take 2 capsules (1,000 mg total) by mouth every 6 (six) hours as needed for pain 5 07/16/20 25 Active Problems Problem Noted Date Diagnosed Date Urinary retention 06/15/2025 Assessment & Plan (06/15/2025 11:26 AM CDT): 06/15 post void bladder scan noted 600 ml retained after 100 ml voided, replace mina with void trial at a later date possibly outpatient. Severe malnutrition 06/12/2025 Assessment & Plan (06/12/2025 11:26 AM CDT): - RD consult - supplemental shakes - encourage oral intake Acute pain due to trauma 06/10/2025 Assessment & Plan (06/15/2025 11:28 AM CDT): - Robaxin 500 mg TID - Tylenol 1000 mg q6h prn - gabapentin 100 mg q8h - Oxycodone 2.5mg q6h PRN Discharge planning issues 06/10/2025 Assessment & Plan (06/15/2025 11:42 AM CDT): - 06/10: OU, d/c chest tube. Rec for IRF - 06/11 - 06/15 Patient is medically stable for discharge, SW/CHI updated. Discharge pending insurance authorization Treatment plan note completed [x] Abnormal finding on CT scan 06/10/2025 Assessment & Plan (06/10/2025 4:50 PM CDT): 1 cm pulmonary nodule in the left upper lobe is indeterminate. Recommend correlation with prior imaging if available. Otherwise, this can be followed with CT of the chest in 3-6 months Type 2 diabetes mellitus 06/10/2025 Assessment & Plan (06/10/2025 4:53 PM CDT): - Home medication: metformin 500 mg - SSI, accuchecks while inpatient Suture check 06/10/2025 Assessment & Plan (06/14/2025 11:20 AM CDT): - 06/10: sutures noted to be in right neck. On chart review, aborted RIJ line placement with sutures placed on 06/06 - Removed sutures on 06/14 Shock 06/08/2025 Assessment & Plan (06/15/2025 11:42 AM CDT): -Undifferentiated -Cards c/s: rec ASA, device interrogated -Off pressors -OU monitoring - 06/10: SBP 90s-110s, asymptomatic -06/15 resolved Multiple rib fractures involving four or more ri bs 06/05/2025 Assessment & Plan (06/12/2025 11:27 AM CDT): -R3-10 rib fractures -Fx displaced -Chest tube placed -06/08: IS 1.25L -Pain control -Pulm hygiene - chest xr (06/10) no definite pneumothorax. Unchanged multiple right sided rib fractures. Moderate amount of soft tissue gas in the right axilla and right neck. - 06/10: CT output 80 cc/24 hr. No air leak. Chest tube removed. Post pull chest xray without worsening of PTX. Painful respiration 06/05/2025 Pre-operative cardiovascular examination 024 Assessment & Plan (02/06/2024 9:30 PM CDT): Planning for tooth extraction. Cardiac conditions stable. Please give antibiotic prophylaxis. Automatic implantable cardiac defibrillator in s itu 05/24/2020 Assessment & Plan (02/06/2024 9:25 PM CDT): EP managing. Hyperlipidemia 09/27/2019 Assessment & Plan (06/10/2025 4:52 PM CDT): - continue home lipitor Ischemic cardiomyopathy 04/03/2018 Assessment & Plan (02/06/2024 9:28 PM CDT): ICM with HFrEF. Endorsing NYHA Class I symptoms. Euvolemic upon examination. Continue losartan and lasix. Taken off metoprolol for unknown reason. Will request PCP documentation for review Peripheral artery disease 04/03/2018 Chronic systolic heart failure 11/26/2016 Assessment & Plan (06/10/2025 4:55 PM CDT): #Hypertension #CAD s/p CABG #ICM/HFrEF s/p Medtronic ICD - Home medication: losartan 25 mg - Holding home losartan in setting of hypotension - Cards consulted in ICU - Start ASA 81 mg daily when stable from bleeding perspective - Device interrogation - Outpatient follow up with Cardiology Atrial flutter 05/21/2016 Assessment & Plan (02/06/2024 9:25 PM CDT): Status post atrial flutter ablation. EP visit today. Taken off metoprolol for unknown reason. Will request PCP documentation for review Hypertension 02/15/2016 Surgical follow-up care 01/06/2016 Paroxysmal atrial fibrillation 09/26/2015 Assessment & Plan (06/15/2025 11:35 AM CDT): - Home medication: metoprolol xl 50 mg - Initially held home metoprolol in setting of hypotension S/P AVR (aortic valve replacement) 09/26/2015 Assessment [...] Encounters Date Type Department Care Team Description 06/25/2025 [facility]phone [facility] [address] [place] [address] Outpatient Health 3rd Floor [address] [place] [address] Sheri Mojica 06/23/2025 Telephone [facility] Outpatient Health Acute and Critical Care Services [address] [place] [address] [address] [place] [address] Rowena Michele, RN CARE COORDINATION 06/16/2025 [facility]phone [facility] [address] [place] [address] 3rd Floor [address] [place] [address] Santiago Navas 06/07/2025 8:30 AM CDT Ancillary Procedure [facility] Medicine Vascular Lab IP [address] [facility] [address] [place] [address] 06/05/2025 6:31 AM CDT - 06/16/2025 6:20 PM CDT Hospital Encounter [address] [address] Clemente Serrano MD Snyder, Jason Andrew, MD Multiple rib fractures involving four or more ribs (Primary Dx); Painful respiration; Closed fracture of multiple ribs of right side, initial encounter; Fall, initial encounter; Shortness of breath; Hypovolemic shock (HCC); Shock (HCC); Acute traumatic pain [G89.11]; Requires daily management of epidural infusion [Z78.9] Discharge Disposition: Discharge to an IP Rehab facility from Last 3 Months Immunizations Immunization Administration Dates Next Due Tdap 06/05/2025 Family History Medical History Relation Name Comments [...] on file Legal Sex Male 6:43 AM [employer] Gender Identity Not on file Sexual Orientation Not on file Obstetrics History Last Filed Vital Signs Vital Sign Reading Time Taken Comments Blood Pressure 112/58 06/16/2025 5:14 PM CDT Pulse 97 06/16/2025 5:14 PM CDT Temperature 36.6 C (97.9 F) 06/16/2025 5:14 PM CDT Respiratory Rate 16 06/16/2025 5:14 PM CDT Oxygen Saturation 98% 06/16/2025 5:14 PM CDT Inhaled Oxygen Concentration - - Weight 54.4 kg (120 lb) 06/05/2025 6:10 PM CDT Height 165.1 cm (5' 5) 06/05/2025 6:10 PM CDT Body Mass Index 19.97 06/05/2025 6:10 PM CDT Plan of Treatment Health Maintenance Due Date Last Done Comments Albumin Creatinine Ratio, Urine 1936 Depression Screening 1936 Dilated Eye Exam 1936 Foot Exam 1936 Hepatitis B Screening 01/31/1954 Zoster Vaccine (1 of 2) 01/31/1986 Well Visit 65+ 01/31/2001 Pneumococcal vaccine 65+ (2 of 2 - PPSV23, PCV20, or PCV21) 10/16/2019 08/21/2019 Influenza Vaccine (#1) 2025 9, 08/18/2018, 09/09/2017 Hemoglobin A1C 12/06/2025 06/05/2025 Lipid Panel 06/05/2026 06/05/2025, 0210/2015, 08/08/2015 eGFR 06/12/2026 06/12/2025, 08/06/2025, 06/10/2025, Additional history exists Fall Risk Assessment 06/16/2026 06/16/2025 DTaP/Tdap/Td Vaccine (2 - Td or Tdap) 06/05/2035 06/05/2025 Procedures Procedure Name Priority Date/Time Associated Diagnosis Comments POCT GLUCOSE DEVICE Routine 06/16/2025 6 :20 PM CDT POCT GLUCOSE DEVICE Routine 06/16/2025 12:33 PM CDT POCT GLUCOSE DEVICE Routine 06/16/2025 8 :13 AM CDT POCT GLUCOSE DEVICE Routine 06/15/2025 10:20 PM CDT POCT GLUCOSE DEVICE Routine 06/15/2025 7 :59 PM CDT POCT GLUCOSE DEVICE Routine 06/15/2025 5 :53 PM CDT POCT GLUCOSE DEVICE Routine 06/15/2025 11:55 AM CDT POCT GLUCOSE DEVICE Routine 06/15/2025 8 :07 AM CDT POCT GLUCOSE DEVICE Routine 06/14/2025 7 :54 PM CDT POCT GLUCOSE DEVICE Routine 06/14/2025 5 :38 PM CDT POCT GLUCOSE DEVICE Routine 06/14/2025 4 :27 PM CDT POCT GLUCOSE DEVICE Routine 06/14/2025 11:18 AM CDT POCT GLUCOSE DEVICE Routine 06/14/2025 8 :20 AM CDT POCT GLUCOSE DEVICE Routine 06/13/2025 9 :15 PM CDT POCT GLUCOSE DEVICE Routine 06/13/2025 5 :07 PM CDT POCT GLUCOSE DEVICE Routine 06/13/2025 4 :28 PM CDT POCT GLUCOSE DEVICE Routine 06/13/2025 12:07 PM CDT POCT GLUCOSE DEVICE Routine 06/13/2025 12:03 PM CDT POCT GLUCOSE DEVICE Routine 06/13/2025 8 :01 AM CDT XR CHEST 1 VIEW ED Urgent/IP Urgent 06/13/2025 6:53 AM CDT EGFR Routine 06/12/2025 10:36 PM CDT PHOSPHORUS Routine 06/12/2025 10:36 PM CDT MAGNESIUM Routine 06/12/2025 10:36 PM CDT BASIC METABOLIC PANEL Routine 06/12/2025 10:36 PM CDT CBC WITHOUT DIFFERENTIAL Routine 025 10:36 PM CDT POCT GLUCOSE DEVICE Routine 06/12/2025 8 :00 PM CDT POCT GLUCOSE DEVICE Routine 06/12/2025 6 :17 PM CDT POCT GLUCOSE DEVICE Routine 06/12/2025 3 :46 PM CDT POCT GLUCOSE DEVICE Routine 06/12/2025 11:18 AM CDT POCT GLUCOSE DEVICE Routine 06/12/2025 8 :06 AM CDT EGFR Routine 06/11/2025 8:32 PM CDT PHOSPHORUS Routine 06/11/2025 8:32 PM CDT MAGNESIUM Routine 06/11/2025 8:32 PM CDT BASIC METABOLIC PANEL Routine 06/11/2025 8:32 PM CDT CBC WITHOUT DIFFERENTIAL Routine 025 8:32 PM CDT POCT GLUCOSE DEVICE Routine 06/11/2025 6 :02 PM CDT POCT GLUCOSE DEVICE Routine 06/11/2025 12:06 PM CDT POCT GLUCOSE DEVICE Routine 06/11/2025 7 :36 AM CDT XR CHEST 1 VIEW Timed 06/11/2025 5:10 AM CDT EGFR Routine 06/10/2025 10:31 PM CDT PHOSPHORUS Routine 06/10/2025 10:31 PM CDT MAGNESIUM Routine 06/10/2025 10:31 PM CDT BASIC METABOLIC PANEL Routine 06/10/2025 10:31 PM CDT CBC WITHOUT DIFFERENTIAL Routine 025 10:31 PM CDT POCT GLUCOSE DEVICE Routine 06/10/2025 8 :04 PM CDT POCT GLUCOSE DEVICE Routine 06/10/2025 5 :26 PM CDT XR CHEST PA LATERAL 2 VIEWS Timed 06/10/2025 4:49 PM CDT POCT GLUCOSE DEVICE Routine 06/10/2025 12:02 PM CDT XR CHEST 1 VIEW ED Urgent/IP Urgent 06/10/2025 8:27 AM CDT POCT GLUCOSE DEVICE Routine 06/10/2025 8 :05 AM CDT POCT GLUCOSE DEVICE Routine 06/09/2025 9 :25 PM CDT EGFR Routine 06/09/2025 8:49 PM CDT PHOSPHORUS Routine 06/09/2025 8:49 PM CDT MAGNESIUM Routine 06/09/2025 8:49 PM CDT BASIC METABOLIC PANEL Routine 06/09/2025 8:49 PM CDT CBC WITHOUT DIFFERENTIAL Routine 025 8:49 PM CDT CRITICAL CARE Routine 06/09/2025 7:18 PM CDT Multiple rib fractures involving four or more ribs POCT GLUCOSE DEVICE Routine 06/09/2025 6 :11 PM CDT POCT GLUCOSE DEVICE Routine 06/09/2025 4 :37 PM CDT XR CHEST 1 VIEW ED Urgent/IP Urgent 06/09/2025 2:41 PM CDT POCT GLUCOSE DEVICE Routine 06/09/2025 1 :04 PM CDT POCT GLUCOSE DEVICE Routine 06/09/2025 8 :41 AM CDT CRITICAL CARE Routine 06/09/2025 8:00 AM CDT Multiple rib fractures involving four or more ribs POCT GLUCOSE DEVICE Routine 06/08/2025 9 :03 PM CDT EGFR Routine 06/08/2025 6:42 PM CDT PHOSPHORUS Routine 06/08/2025 6:42 PM CDT MAGNESIUM Routine 06/08/2025 6:42 PM CDT BASIC METABOLIC PANEL Routine 06/08/2025 6:42 PM CDT CBC WITHOUT DIFFERENTIAL Routine 025 6:42 PM CDT XR CHEST 1 VIEW ED Urgent/IP Urgent 06/08/2025 6:32 PM CDT CRITICAL CARE Routine 06/08/2025 6:18 PM CDT Multiple rib fractures involving four or more ribs POCT GLUCOSE DEVICE Routine 06/08/2025 6 :13 PM CDT POCT GLUCOSE DEVICE Routine 06/08/2025 12:56 PM CDT POCT GLUCOSE DEVICE Routine 06/08/2025 9 :20 AM CDT CRITICAL CARE Routine 06/08/2025 8:18 AM CDT Multiple rib fractures involving four or more ribs BASIC METABOLIC PANEL Routine 06/07/2025 9:37 PM CDT EGFR Routine 06/07/2025 9:37 PM CDT PHOSPHORUS Routine 06/07/2025 9:37 PM CDT MAGNESIUM Routine 06/07/2025 9:37 PM CDT CBC WITHOUT DIFFERENTIAL Routine 9:37 PM CDT POCT GLUCOSE DEVICE Routine 06/07/2025 8 :58 PM CDT CRITICAL CARE Routine 06/07/2025 6:30 PM CDT Multiple rib fractures involving four or more ribs POCT GLUCOSE DEVICE Routine 06/07/2025 3 :24 PM CDT XR CHEST 1 VIEW IP Routine 06/07/2025 3:10 PM CDT US CAROTIDS DUPLEX BILATERAL IP Routine 06/07/2025 2:18 PM CDT POCT GLUCOSE DEVICE Routine 06/07/2025 12:46 PM CDT CRITICAL CARE Routine 06/07/2025 7:51 AM CDT Multiple rib fractures involving four or more ribs POCT GLUCOSE DEVICE Routine 06/07/2025 7 :16 AM CDT POCT GLUCOSE DEVICE Routine 06/07/2025 4 :05 AM CDT POCT GLUCOSE DEVICE Routine 06/06/2025 11:26 PM CDT POCT GLUCOSE DEVICE Routine 06/06/2025 7 :52 PM CDT EGFR Routine 06/06/2025 7:48 PM CDT MAGNESIUM Routine 06/06/2025 7:48 PM CDT PROTIME-INR Routine 06/06/2025 7:48 PM CDT APTT Routine 06/06/2025 7:48 PM CDT BASIC METABOLIC PANEL Routine 06/06/2025 7:48 PM CDT CBC WITHOUT DIFFERENTIAL Routine 025 7:48 PM CDT CRITICAL CARE Routine 06/06/2025 6:46 PM CDT Multiple rib fractures involving four or more ribs XR CHEST 1 VIEW ED Urgent/IP Urgent 06/06/2025 5:33 PM CDT ND INSJ NON-TUNNELED CENTRAL VENOUS CATH AGE 5 YR/> Routine 06/06/2025 5:02 PM CDT Shock (HCC) POCT GLUCOSE DEVICE Routine 06/06/2025 4 :57 PM CDT EGFR Timed 06/06/2025 2:00 PM CDT CALCIUM,IONIZED, WHOLE BLOOD Timed 06/06/2025 2:00 PM CDT BASIC METABOLIC PANEL Timed 06/06/2025 2:00 PM CDT CBC WITHOUT DIFFERENTIAL Timed 025 2:00 PM CDT POCT GLUCOSE DEVICE Routine 06/06/2025 11:20 AM CDT EGFR Timed 06/06/2025 7:41 AM CDT TROPONIN I HIGH-SENSITIVITY Routine 06/06/2025 7:41 AM CDT CALCIUM,IONIZED, WHOLE BLOOD Timed 06/06/2025 7:41 AM CDT MAGNESIUM Timed 06/06/2025 7:41 AM CDT BASIC METABOLIC PANEL Timed 06/06/2025 7:41 AM CDT CBC WITHOUT DIFFERENTIAL Timed 025 7:41 AM CDT ECG 12-LEAD Routine 06/06/2025 7:39 AM CDT POCT GLUCOSE DEVICE Routine 06/06/2025 7 :12 AM CDT CRITICAL CARE Routine 06/06/2025 7:00 AM CDT Shock (HCC) POCT GLUCOSE DEVICE Routine 06/06/2025 3 :09 AM CDT TRANSFUSE RED BLOOD CELLS Timed 06/06/2025 2:09 AM CDT PREPARE RBC Timed 06/06/2025 1:24 AM CDT POCT GLUCOSE DEVICE Routine 06/06/2025 12:46 AM CDT CBC WITHOUT DIFFERENTIAL Timed 025 12:36 AM CDT POTASSIUM LEVEL Timed 06/06/2025 12:36 AM CDT XR CHEST 1 VIEW Timed 06/05/2025 10:27 PM CDT LACTATE, WHOLE BLOOD STAT 06/05/2025 9:45 PM CDT POCT GLUCOSE DEVICE Routine 06/05/2025 8 :30 PM CDT ND ARTL CATHJ/CANNULJ MNTR/TRANSFUSION SPX PRQ Routine 06/05/2025 7:49 PM CDT Hypovolemic shock (HCC) LIPID PANEL Timed 06/05/2025 7:26 PM CDT EGFR Routine 06/05/2025 7:26 PM CDT HEMOGLOBIN A1C Routine 06/05/2025 7:26 PM CDT CALCIUM, IONIZED Routine 06/05/2025 7:26 PM CDT PHOSPHORUS Routine 06/05/2025 7:26 PM CDT MAGNESIUM Routine 06/05/2025 7:26 PM CDT BASIC METABOLIC PANEL Routine 06/05/2025 7:26 PM CDT CBC WITHOUT DIFFERENTIAL Routine 025 7:26 PM CDT POTASSIUM LEVEL Timed 06/05/2025 7:26 PM CDT CRITICAL CARE Routine 06/05/2025 6:56 PM CDT Multiple rib fractures involving four or more ribs POTASSIUM LEVEL Timed 06/05/2025 5:20 PM CDT CRITICAL CARE Routine 06/05/2025 5:17 PM CDT POCT GLUCOSE DEVICE Routine 06/05/2025 4 :04 PM CDT TRANSTHORACIC ECHO (TTE) COMPLETE W DOPPLER/CF W CONTRAST STAT 06/05/2025 3:14 PM CDT POTASSIUM LEVEL Timed 06/05/2025 2:13 PM CDT TROPONIN I HIGH-SENSITIVITY 6-HOUR Timed 06/05/2025 2:13 PM CDT TROPONIN I HIGH-SENSITIVITY 4-HOUR Timed 06/05/2025 12:43 PM CDT POCT GLUCOSE DEVICE Routine 06/05/2025 11:17 AM CDT EGFR Routine 06/05/2025 11:12 AM CDT DIFFERENTIAL AUTO Routine 06/05/2025 11:12 AM CDT CBC WITH AUTO DIFFERENTIAL Routine 06/05/2025 11:12 AM CDT LACTATE, WHOLE BLOOD Routine 06/05/2025 11:12 AM CDT COMPREHENSIVE METABOLIC PANEL Routine 06/05/2025 11:12 AM CDT ECG 12-LEAD STAT 06/05/2025 11:11 AM CDT ND ARTL CATHJ/CANNULJ MNTR/TRANSFUSION SPX PRQ Routine 06/05/2025 10:25 AM CDT TROPONIN I HIGH-SENSITIVITY 2-HOUR Timed 06/05/2025 10:22 AM CDT DRUGS OF ABUSE SCREEN, URINE WITH REFLEX CONFIRMATION Routine 06/05/2025 10:07 AM CDT URINALYSIS AND REFLEX TO MICROSCOPIC AND CULTURE STAT 06/05/2025 10:07 AM CDT ECG 12-LEAD STAT 06/05/2025 9:37 AM CDT PREPARE RBC Timed 06/05/2025 9:28 AM CDT ED CHEST TUBE INSERTION Routine 06/05/20 9:21 AM CDT ED MODERATE SEDATION Routine 06/05/2025 9:16 AM CDT XR CHEST 1 VIEW ED Urgent/IP Urgent 06/05/2025 9:12 AM CDT PRO B-TYPE NATRIURETIC PEPTIDE STAT 06/05/2025 8:15 AM CDT TROPONIN I HIGH-SENSITIVITY SERIES (BASELINE, 2HR, 4HR, 6HR) STAT 06/05/2025 8:15 AM CDT ND CRITICAL CARE ILL/INJURED PATIENT INIT 30-74 MIN Routine 06/05/2025 7:[address] RECON THORACIC AND LUMBAR SPINE W CONTRAST ED 06/05/2025 7:[address] CHEST ABDOMEN PELVIS W CONTRAST ED 06/05/2025 7:[address] HEAD AND CERVICAL SPINE WO CONTRAST ED 06/05/2025 7:09 AM CDT XR CHEST 1 VIEW ED 06/05/2025 7:06 AM CDT XR PELVIS 1 OR 2 VIEWS ED 7:06 AM CDT POC BLOOD GAS AND CHEMISTRIES, VENOUS Routine 06/05/2025 6:55 AM CDT POCT GLUCOSE DEVICE Routine 06/05/2025 6 :53 AM CDT THROMBOELASTOMETRY PANEL - INTRINSIC Routine 06/05/2025 6:53 AM CDT THROMBOELASTOMETRY PANEL - HEPARIN Routine 06/05/2025 6:53 AM CDT THROMBOELASTOMETRY PANEL - EXTRINSIC Routine 06/05/2025 6:53 AM CDT THROMBOELASTOMETRY PANEL - FIBRINOGEN Routine 06/05/2025 6:53 AM CDT DIFFERENTIAL AUTO Routine 06/05/2025 6:5 3 AM CDT THROMBOELASTOMETRY PANEL Routine 025 6:53 AM CDT PROTIME-INR Routine 06/05/2025 6:53 AM CDT APTT Routine 06/05/2025 6:53 AM CDT ETHANOL Routine 06/05/2025 6:53 AM CDT CBC WITH AUTO DIFFERENTIAL Routine 06/05/2025 6:53 AM CDT TYPE AND SCREEN Timed 06/05/2025 6:53 AM CDT from Last 3 Months Results * POCT glucose (06/16/2025 6:20 PM CDT) Glucose, POC 166 70 - 199 mg/dL Blood 06/16/2025 6:20 PM CDT 06/16/2025 6:20 PM CDT us Pineda Sorto MD LAB POCT ORDERABLES - DEV ICE Final Result [facility] [place] [address] * (ABNORMAL) POCT glucose (06/16/2025 12:33 PM CDT) Glucose, POC 216(H) 70 - 199 mg/dL Blood 06/16/2025 12:3 3 PM CDT 06/16/2025 12:33 PM CDT Pineda Sorto MD LAB POCT ORDERABLES - DEV ICE Final Result Performing Organization Address [facility] de Phone Number [facility] [place] [address] * POCT glucose (06/16/2025 8:13 AM CDT) Glucose, POC 111 70 - 199 mg/dL Blood 06/16/2025 8:13 AM CDT 06/16/2025 8:13 AM CDT Pineda Sorto MD LAB POCT ORDERABLES - DEV ICE Final Result Performing Organization Address [facility] de Phone Number [facility] [place] [address] * POCT glucose (06/15/2025 10:20 PM CDT) Glucose, POC 113 70 - 199 mg/dL Blood 06/15/2025 10:2 0 PM CDT 06/15/2025 10:20 PM CDT Pineda Sorto MD LAB POCT ORDERABLES - DEV ICE Final Result Performing Organization Address [facility] de Phone Number [facility] [place] [address] * POCT glucose (06/15/2025 7:59 PM CDT) Glucose, POC 115 70 - 199 mg/dL Blood 06/15/2025 7:59 PM CDT 06/15/2025 7:59 PM CDT Pineda Sorto MD LAB POCT ORDERABLES - DEV ICE Final Result Performing Organization Address [facility] Co de Phone Number [facility] [place] [address] * POCT glucose (06/15/2025 5:53 PM CDT) Glucose, POC 157 70 - 199 mg/dL Blood 06/15/2025 5:53 PM CDT 06/15/2025 5:53 PM CDT Pineda Sorto MD LAB POCT ORDERABLES - DEV ICE Final Result Performing Organization Address City/[facility] [place] [address] * (ABNORMAL) POCT glucose (06/15/2025 11:55 AM CDT) Glucose, POC 337(H) 70 - 199 mg/dL Blood 06/15/2025 11:5 5 AM CDT 06/15/2025 11:55 AM CDT Pineda Sorto MD LAB POCT ORDERABLES - DEV ICE Final Result Performing Organization Address [facility] [place] [address] * POCT glucose (06/15/2025 8:07 AM CDT) Glucose, POC 149 70 - 199 mg/dL Blood 06/15/2025 8:07 AM CDT 06/15/2025 8:07 AM CDT Pineda Sorto MD LAB POCT ORDERABLES - DEV ICE Final Result [facility] [place] [address] * POCT glucose (06/14/2025 7:54 PM CDT) Glucose, POC 148 70 - 199 mg/dL Blood 06/14/2025 7:54 PM CDT 06/14/2025 7:54 PM CDT Pineda Sorto MD LAB POCT ORDERABLES - DEV ICE Final Result Performing Organization Address [facility] Co de Phone Number [facility] [place] [address] * (ABNORMAL) POCT glucose (06/14/2025 5:38 PM CDT) Glucose, POC 240(H) 70 - 199 mg/dL Blood 06/14/2025 5:38 PM CDT 06/14/2025 5:38 PM CDT Pineda Sorto MD LAB POCT ORDERABLES - DEV ICE Final Result Performing Organization Address [facility] de Phone Number [facility] [place] [address] * (ABNORMAL) POCT glucose (06/14/2025 4:27 PM CDT) Glucose, POC 273(H) 70 - 199 mg/dL Comment:Glu2: RN/MD Notified Glucose comment 1 Glu2: RN/MD Notified [facility] Blood 06/14/2025 4:27 PM CDT 06/14/2025 4:27 PM CDT Pineda Sorto MD LAB POCT ORDERABLES - DEV ICE Final Result Performing Organization Address [facility] [place] [address] * (ABNORMAL) POCT glucose (06/14/2025 11:18 AM CDT) Glucose, POC 247(H) 70 - 199 mg/dL Blood 06/14/2025 11:1 8 AM CDT 06/14/2025 11:18 AM CDT Pineda Sorto MD LAB POCT ORDERABLES - DEV ICE Final Result Performing Organization Address [facility] Co de Phone Number [facility] [place] [address] * POCT glucose (06/14/2025 8:20 AM CDT) Glucose, POC 134 70 - 199 mg/dL Blood 06/14/2025 8:20 AM CDT 06/14/2025 8:20 AM CDT Pineda Sorto MD LAB POCT ORDERABLES - DEV ICE Final Result Performing Organization Address [facility] Co de Phone Number [facility] [place] [address] * POCT glucose (06/13/2025 9:15 PM CDT) Glucose, POC 191 70 - 199 mg/dL Blood 06/13/2025 9:15 PM CDT 06/13/2025 9:15 PM CDT Pineda Sorto MD LAB POCT ORDERABLES - DEV ICE Final Result Performing Organization Address [facility] Co de Phone Number [facility] [place] [address] * (ABNORMAL) POCT glucose (06/13/2025 5:07 PM CDT) Glucose, POC 246(H) 70 - 199 mg/dL Blood 06/13/2025 5:07 PM CDT 06/13/2025 5:07 PM CDT Pineda Sorto MD LAB POCT ORDERABLES - DEV ICE Final Result Performing Organization Address [facility] Co de Phone Number [facility] [place] [address] * (ABNORMAL) POCT glucose (06/13/2025 4:28 PM CDT) Glucose, POC 243(H) 70 - 199 mg/dL Blood 06/13/2025 4:28 PM CDT 06/13/2025 4:28 PM CDT Pineda Sorto MD LAB POCT ORDERABLES - DEV ICE Final Result Performing Organization Address [facility] de Phone Number [facility] [place] [address] * (ABNORMAL) POCT glucose (06/13/2025 12:07 PM CDT) Glucose, POC 237(H) 70 - 199 mg/dL Blood 06/13/2025 12:0 7 PM CDT 06/13/2025 12:07 PM CDT Pineda Sorto MD LAB POCT ORDERABLES - DEV ICE Final Result Performing Organization Address [facility] Co de Phone Number [facility] [place] [address] * (ABNORMAL) POCT glucose (06/13/2025 12:03 PM CDT) Glucose, POC 226(H) 70 - 199 mg/dL Comment:Glu2: RN/MD Notified Glucose comment 1 Glu2: RN/MD Notified [facility] Blood 06/13/2025 12:0 3 PM CDT 06/13/2025 12:03 PM CDT Pineda Sorto MD LAB POCT ORDERABLES - DEV ICE Final Result SHAE MORENO Dimas [facility] [place] [address] * POCT glucose (06/13/2025 8:01 AM CDT) Glucose, POC 155 70 - 199 mg/dL Blood 06/13/2025 8:01 AM CDT 06/13/2025 8:01 AM CDT Pineda Sorto MD LAB POCT ORDERABLES - DEV ICE Final Result Performing Organization Address [facility] Co de Phone Number SHAE MORENO Dim[facility] [place] [address] * XR Chest 1 View (06/13/2025 6:53 AM CDT) Anatomical Region Laterality Modality Body, Chest N/A Computed Radiogr aphy 06/13/2025 7:27 AM CDT Impressions 06/13/2025 7:27 AM CDT Comparison is made to prior from 06/11/2025. Sternotomy wires are intact and aligned. Aortic valve replacement. 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 Possible tiny right apical pneumothorax is unchanged. Small right-sided pleural effusion is unchanged. Small left effusion is also unchanged. Heart size stable. Multiple right-sided rib fractures with subcutaneous gas are again noted. Electronically signed by: Rick Daniel M.D. Narrative 06/13/2025 7:27 AM CDT EXAMINATION: 1 view chest radiograph Procedure Note Rick Daniel MD - 06/13/2025 EXAMINATION: 1 view chest radiograph IMPRESSION: Comparison is made to prior from 06/11/2025. Sternotomy wires are intact and aligned. Aortic valve replacement. 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 Possible tiny right apical pneumothorax is unchanged. Small right-sided pleural effusion is unchanged. Small left effusion is also unchanged. Heart size stable. Multiple right-sided rib fractures with subcutaneous gas are again noted. Electronically signed by: Rick Daniel M.D. us Vanessa William NP IMG XR PROCEDURES Final R esult * eGFR (06/12/2025 10:36 PM CDT) eGFR 82 >=60 mL/min/1. 73 m2 Comment: Interpretive Data Reference Interval Normal >/= 90 mL/min/1.73m2 Mildly decreased* 60 - 89 mL/min/1.73m2 Mildly to moderately decreased 45 - 59 mL/min/1.73m2 Moderately to severely decreased 30 - 44 mL/min/1.73m2 Severely decreased 15 - 29 mL/min/1.73m2 Kidney Failure < 15 mL/min/1.73m2 *Relative to young adult level Estimated glomerular filtration rate is determined by the 2020 CKD-EPI equation recommended by the National Kidney Foundation (A Unifying Approach to GFR Estimation: Recommendations of the NKF-ASK Task Force on Reassessing the Inclusion of Race in Diagnosing Kidney Disease, JASN 2020). The CKD-EPI equation should not be used for patients with unstable renal function and has not been validated in children and those over 70. Current interpretive data was last reviewed 2021. Blood 06/12/2025 10:3 6 PM CDT 06/12/2025 11:26 PM CDT us Rick Infante NP LAB BLOOD ORDERABLES nal Result [facility] Department [place] [address] * (ABNORMAL) CBC without differential (06/12/2025 10:36 PM CDT) Pathologist [facility] WBC 7.83 3.80 - 9.90 K/cumm Hgb 9.2(L) 13.0 - 17.5 g/dL [facility] Hct 27.9(L) 38.9 - 50.3 % [facility] Plt 229 150 - 400 K/cumm [facility] MPV 10.5 9.1 - 12.3 fL [facility] RBC 2.98(L) 4.30 - 5.80 M/cumm [facility] MCV 93.6 81.3 - 96.4 fL [facility] MCH 30.9 27.1 - 33.3 pg [facility] MCHC 33.0 32.3 - 35.7 g/dL [facility] RDW CV 14.6 11.1 - 14.9 % [facility] RDW SD 49.1(H) 35.7 - 48.1 fL [facility] NRBC abs 0.00 0.00 - 0.01 K/cumm [facility] Blood 06/12/2025 10:3 6 PM CDT 06/12/2025 11:25 PM CDT Rick Infante [employer] LAB BLOOD ORDERABLES Fi nal Result Performing Organization Address City/[facility]/ZIP Co de Phone Number [facility] [place] [address] * Phosphorus (06/12/2025 10:36 PM CDT) Pathologist [facility] Phosphorus, pl 2.5 2.3 - 4.5 mg/dL Blood 06/12/2025 10:3 6 PM CDT 06/12/2025 11:26 PM CDT Aida Davila DNP LAB BLOOD ORDERABLES F inal Result [facility] Department [place] [address] * Magnesium (06/12/2025 10:36 PM CDT) Pathologist [facility] Magnesium 2.2 1.4 - 2.5 mg/dL Blood 06/12/2025 10:3 6 PM CDT 06/12/2025 11:26 PM CDT Aida Davlia DNP LAB BLOOD ORDERABLES F inal Result [facility] Department [place] [address] * (ABNORMAL) Basic metabolic panel (06/12/2025 10:36 PM CDT) Sodium 137 135 - 145 mmol/L Potassium, pl 4.3 3.3 - 4.9 mmol/L [facility] Chloride 104 97 - 110 mmol/L [facility] CO2 27 22 - 32 mmol/L [facility] Anion gap 6 2 - 15 mmol/L [facility] BUN 20 6 - 25 mg/dL [facility] Creatinine 0.89 0.80 - 1.30 mg/dL [facility] Glucose 108 70 - 199 mg/dL [facility] Comment: Interpretive Data Fasting glucose >/= 126 mg/dl is diagnostic for diabetes. Fasting is defined as no caloric intake for at least 8 hours. Fasting glucose between 100 mg/dl to 125 mg/dl is diagnostic of prediabetes. In a patient with classic symptoms of hyperglycemia or hyperglycemic crisis, a random glucose >/= 200 mg/dl is diagnostic for diabetes. In the absence of unequivocal hyperglycemia, results should be confirmed by repeat testing. The classification and Diagnosis of Diabetes Diabetes Care 202; 46: S19-S40. Current interpretive data was last revised 2022. Calcium 8.2(L) 8.5 - 10.3 mg/dL [facility] Blood 06/12/2025 10:3 6 PM CDT 06/12/2025 11:26 PM CDT Rick Infante [employer] LAB BLOOD ORDERABLES Fi nal Result Performing Organization Address City/[facility]/ZIP Co de Phone Number [facility] [place] [address] * POCT glucose (06/12/2025 8:00 PM CDT) Glucose, POC 138 70 - 199 mg/dL Blood 06/12/2025 8:00 PM CDT 06/12/2025 8:00 PM CDT Pineda Sorto MD LAB POCT ORDERABLES - DEV ICE Final Result Performing Organization Address [facility] de Phone Number [facility] [place] [address] * POCT glucose (06/12/2025 6:17 PM CDT) Glucose, POC 154 70 - 199 mg/dL Blood 06/12/2025 6:17 PM CDT 06/12/2025 6:17 PM CDT Pineda Sorto MD LAB POCT ORDERABLES - DEV ICE Final Result Performing Organization Address [facility] de Phone Number [facility] [place] [address] * POCT glucose (06/12/2025 3:46 PM CDT) Glucose, POC 128 70 - 199 mg/dL Blood 06/12/2025 3:46 PM CDT 06/12/2025 3:46 PM CDT Pineda Sorto MD LAB POCT ORDERABLES - DEV ICE Final Result Performing Organization Address [facility] de Phone Number [facility] [place] [address] * (ABNORMAL) POCT glucose (06/12/2025 11:18 AM CDT) Glucose, POC 260(H) 70 - 199 mg/dL Blood 06/12/2025 11:1 8 AM CDT 06/12/2025 11:18 AM CDT Pineda Sorto MD LAB POCT ORDERABLES - DEV ICE Final Result Performing Organization Address [facility]/ZIP Co de Phone Number [facility] [place] [address] * POCT glucose (06/12/2025 8:06 AM CDT) Glucose, POC 161 70 - 199 mg/dL Blood 06/12/2025 8:06 AM CDT 06/12/2025 8:06 AM CDT Pineda Sorto MD LAB POCT ORDERABLES - DEV ICE Final Result Performing Organization Address [facility] de Phone Number [facility] [place] [address] * eGFR (06/11/2025 8:32 PM CDT) eGFR 87 >=60 mL/min/1. 73 m2 Comment: Interpretive Data Reference Interval Normal >/= 90 mL/min/1.73m2 Mildly decreased* 60 - 89 mL/min/1.73m2 Mildly to moderately decreased 45 - 59 mL/min/1.73m2 Moderately to severely decreased 30 - 44 mL/min/1.73m2 Severely decreased 15 - 29 mL/min/1.73m2 Kidney Failure < 15 mL/min/1.73m2 *Relative to young adult level Estimated glomerular filtration rate is determined by the 2020 CKD-EPI equation recommended by the National Kidney Foundation (A Unifying Approach to GFR Estimation: Recommendations of the NKF-ASK Task Force on Reassessing the Inclusion of Race in Diagnosing Kidney Disease, JASN 2020). The CKD-EPI equation should not be used for patients with unstable renal function and has not been validated in children and those over 70. Current interpretive data was last reviewed 2021. Blood 06/11/2025 8:32 PM CDT 06/11/2025 9:01 PM CDT us Rick Infante NP LAB BLOOD ORDERABLES Fi nal Result Performing Organization Address [facility] Co de Phone Number [facility] Department [place] [address] * (ABNORMAL) CBC without differential (06/11/2025 8:32 PM CDT) Pathologist [facility] WBC 6.50 3.80 - 9.90 K/cumm Hgb 9.3(L) 13.0 - 17.5 g/dL [facility] Hct 27.2(L) 38.9 - 50.3 % [facility] Plt 194 150 - 400 K/cumm [facility] MPV 10.6 9.1 - 12.3 fL [facility] RBC 3.00(L) 4.30 - 5.80 M/cumm [facility] MCV 90.7 81.3 - 96.4 fL [facility] MCH 31.0 27.1 - 33.3 pg [facility] MCHC 34.2 32.3 - 35.7 g/dL [facility] RDW CV 14.5 11.1 - 14.9 % [facility] RDW SD 47.0 35.7 - 48.1 fL [facility] NRBC abs 0.00 0.00 - 0.01 K/cumm [facility] Blood 06/11/2025 8:32 PM CDT 06/11/2025 8:49 PM CDT Rick Infante [employer] LAB BLOOD ORDERABLES Fi nal Result Performing Organization Address [facility] Co de Phone Number [facility] Department [place] [address] * (ABNORMAL) Phosphorus (06/11/2025 8:32 PM CDT) Pathologist [facility] Phosphorus, pl 1.9(L) 2.3 - 4.5 mg/dL Blood 06/11/2025 8:32 PM CDT 06/11/2025 9:01 PM CDT Aida Davila DNP LAB BLOOD ORDERABLES F inal Result [facility] Department [place] [address] * Magnesium (06/11/2025 8:32 PM CDT) [facility] Magnesium 2.1 1.4 - 2.5 mg/dL Blood 06/11/2025 8:32 PM CDT 06/11/2025 9:01 PM CDT Aida Davila [facility] LAB BLOOD ORDERABLES F inal Result Performing Organization Address [facility] Co de Phone Number [facility] Department [place] [address] * (ABNORMAL) Basic metabolic panel (06/11/2025 8:32 PM CDT) [facility] Sodium 134(L) 135 - 145 mmol/L Potassium, pl 4.0 3.3 - 4.9 mmol/L [facility] Chloride 103 97 - 110 mmol/L [facility] CO2 26 22 - 32 mmol/L [facility] Anion gap 5 2 - 15 mmol/L [facility] BUN 23 6 - 25 mg/dL [facility] Creatinine 0.74(L) 0.80 - 1.30 mg/dL [facility] Glucose 138 70 - 199 mg/dL [facility] Comment: Interpretive Data Fasting glucose >/= 126 mg/dl is diagnostic for diabetes. Fasting is defined as no caloric intake for at least 8 hours. Fasting glucose between 100 mg/dl to 125 mg/dl is diagnostic of prediabetes. In a patient with classic symptoms of hyperglycemia or hyperglycemic crisis, a random glucose >/= 200 mg/dl is diagnostic for diabetes. In the absence of unequivocal hyperglycemia, results should be confirmed by repeat testing. The classification and Diagnosis of Diabetes Diabetes Care 2021; 46: S19-S40. Current interpretive data was last revised 2022. Calcium 8.1(L) 8.5 - 10.3 mg/dL [facility] Blood 06/11/2025 8:32 PM CDT 06/11/2025 9:01 PM CDT us Rick Infante NP LAB BLOOD ORDERABLES Fi nal Result [facility] Department [place] [address] * (ABNORMAL) POCT glucose (06/11/2025 6:02 PM CDT) Glucose, POC 200(H) 70 - 199 mg/dL Comment:Glu2: RN/MD Notified Glucose comment 1 Glu2: RN/MD Notified [facility] Blood 06/11/2025 6:02 PM CDT 06/11/2025 6:02 PM CDT Pineda Sorto MD LAB POCT ORDERABLES - DEV ICE Final Result Performing Organization Address City/[facility]/ZIP Co de Phone Number [facility] Department [place] [address] * POCT glucose (06/11/2025 12:06 PM CDT) Glucose, POC 173 70 - 199 mg/dL Blood 06/11/2025 12:0 6 PM CDT 06/11/2025 12:06 PM CDT Pineda Sorto MD LAB POCT ORDERABLES - DEV ICE Final Result Performing Organization Address City/[facility] Co de Phone Number [facility] [place] [address] * POCT glucose (06/11/2025 7:36 AM CDT) Glucose, POC 150 70 - 199 mg/dL Blood 06/11/2025 7:36 AM CDT 06/11/2025 7:36 AM CDT us Pineda Sorto MD LAB POCT ORDERABLES - DEV ICE Final Result [facility] Department [place] [address] * XR Chest 1 View (06/11/2025 5:10 AM CDT) Anatomical Region Laterality Modality Body, Chest N/A Computed Radiogr aphy 06/11/2025 9:33 AM CDT Impressions 06/11/2025 3:27 PM CDT The current study is compared with the prior radiograph dated 06/10/2025. Left subclavian vein pacemaker defibrillator with leads projecting over the right atrium and right ventricle. Aortic valve replacement is present. Median sternotomy wires are present. Interval improvement in small right apical pneumothorax. No pneumothorax on the left. There is interstitial opacities in the right lung favored to represent atelectasis. No pleural effusion. Cardiomediastinal silhouette is unchanged. Unchanged multiple fractures of the right rib. Unchanged moderate amount of soft tissue gas in the right axilla and right neck. Dictated by: Lamberto Castrejon M.D. The radiology attending physician has personally reviewed this study, and had reviewed and/or edited this written report and agrees with it. Electronically signed by: Chuck Pope M.D. Narrative 06/11/2025 3:27 PM CDT EXAMINATION: 1 view chest radiograph Procedure Note Chuck Pope MD - 06/11/2025 EXAMINATION: 1 view chest radiograph IMPRESSION: The current study is compared with the prior radiograph dated 06/10/2025. Left subclavian vein pacemaker defibrillator with leads projecting over the right atrium and right ventricle. Aortic valve replacement is present. Median sternotomy wires are present. Interval improvement in small right apical pneumothorax. No pneumothorax on the left. There is interstitial opacities in the right lung favored to represent atelectasis. No pleural effusion. Cardiomediastinal silhouette is unchanged. Unchanged multiple fractures of the right rib. Unchanged moderate amount of soft tissue gas in the right axilla and right neck. Dictated by: Lamberto Castrejon M.D. The radiology attending physician has personally reviewed this study, and had reviewed and/or edited this written report and agrees with it. Electronically signed by: Chuck Pope M.D. Yamila Harding NP IMG XR PROCEDURES Final R esult * eGFR (06/10/2025 10:31 PM CDT) eGFR 85 >=60 mL/min/1. 73 m2 Comment: Interpretive Data Reference Interval Normal >/= 90 mL/min/1.73m2 Mildly decreased* 60 - 89 mL/min/1.73m2 Mildly to moderately decreased 45 - 59 mL/min/1.73m2 Moderately to severely decreased 30 - 44 mL/min/1.73m2 Severely decreased 15 - 29 mL/min/1.73m2 Kidney Failure < 15 mL/min/1.73m2 *Relative to young adult level Estimated glomerular filtration rate is determined by the 2020 CKD-EPI equation recommended by the National Kidney Foundation (A Unifying Approach to GFR Estimation: Recommendations of the NKF-ASK Task Force on Reassessing the Inclusion of Race in Diagnosing Kidney Disease, JASN 2020). The CKD-EPI equation should not be used for patients with unstable renal function and has not been validated in children and those over 70. Current interpretive data was last reviewed 2021. Blood 06/10/2025 10:3 1 PM CDT 06/10/2025 10:54 PM CDT Rick Infante NP LAB BLOOD ORDERABLES Fi nal Result [facility] Department [place] [address] * (ABNORMAL) CBC without differential (06/10/2025 10:31 PM CDT) Pathologist [facility] WBC 7.37 3.80 - 9.90 K/cumm Hgb 8.8(L) 13.0 - 17.5 g/dL [facility] Hct 24.9(L) 38.9 - 50.3 % [facility] Plt 163 150 - 400 K/cumm [facility] MPV 10.7 9.1 - 12.3 fL [facility] RBC 2.77(L) 4.30 - 5.80 M/cumm [facility] MCV 89.9 81.3 - 96.4 fL [facility] MCH 31.8 27.1 - 33.3 pg [facility] MCHC 35.3 32.3 - 35.7 g/dL [facility] RDW CV 14.6 11.1 - 14.9 % [facility] RDW SD 48.3(H) 35.7 - 48.1 fL [facility] NRBC abs 0.00 0.00 - 0.01 K/cumm [facility] Blood 06/10/2025 10:3 1 PM CDT 06/10/2025 10:54 PM CDT Rick Infante [employer] LAB BLOOD ORDERABLES Fi nal Result [facility] Department [place] [address] * Phosphorus (06/10/2025 10:31 PM CDT) Phosphorus, pl 2.3 2.3 - 4.5 mg/dL Blood 06/10/2025 10:3 1 PM CDT 06/10/2025 10:54 PM CDT Aida Davila DNP LAB BLOOD ORDERABLES F inal Result [facility] Department [place] [address] * Magnesium (06/10/2025 10:31 PM CDT) Magnesium 2.0 1.4 - 2.5 mg/dL Blood 06/10/2025 10:3 1 PM CDT 06/10/2025 10:54 PM CDT Aida Davila DNP LAB BLOOD ORDERABLES F inal Result Performing Organization Address City/[facility]/ZIP Co de Phone Number [facility] Department [place] [address] * (ABNORMAL) Basic metabolic panel (06/10/2025 10:31 PM CDT) [facility] Sodium 138 135 - 145 mmol/L Potassium, pl 3.8 3.3 - 4.9 mmol/L [facility] Chloride 106 97 - 110 mmol/L [facility] CO2 26 22 - 32 mmol/L [facility] Anion gap 6 2 - 15 mmol/L [facility] BUN 29(H) 6 - 25 mg/dL [facility] Creatinine 0.80 0.80 - 1.30 mg/dL [facility] Glucose 117 70 - 199 mg/dL [facility] Comment: Interpretive Data Fasting glucose >/= 126 mg/dl is diagnostic for diabetes. Fasting is defined as no caloric intake for at least 8 hours. Fasting glucose between 100 mg/dl to 125 mg/dl is diagnostic of prediabetes. In a patient with classic symptoms of hyperglycemia or hyperglycemic crisis, a random glucose >/= 200 mg/dl is diagnostic for diabetes. In the absence of unequivocal hyperglycemia, results should be confirmed by repeat testing. The classification and Diagnosis of Diabetes Diabetes Care 2021; 46: S19-S40. Current interpretive data was last revised 2022. Calcium 7.5(L) 8.5 - 10.3 mg/dL [facility] Blood 06/10/2025 10:3 1 PM CDT 06/10/2025 10:54 PM CDT Rick Infante [employer] LAB BLOOD ORDERABLES Fi nal Result Performing Organization Address [facility]/ZIP Co de Phone Number [facility] Department [place] [address] * (ABNORMAL) POCT glucose (06/10/2025 8:04 PM CDT) Glucose, POC 224(H) 70 - 199 mg/dL Blood 06/10/2025 8:04 PM CDT 06/10/2025 8:04 PM CDT Pineda Sorto MD LAB POCT ORDERABLES - DEV ICE Final Result Performing Organization Address [facility] de Phone Number [facility] Department [place] [address] * (ABNORMAL) POCT glucose (06/10/2025 5:26 PM CDT) Glucose, POC 201(H) 70 - 199 mg/dL Blood 06/10/2025 5:26 PM CDT 06/10/2025 5:26 PM CDT Pineda Sorto MD LAB POCT ORDERABLES - DEV ICE Final Result Performing Organization Address [facility] de Phone Number [facility] [place] [address] * XR Chest Pa Lateral 2 Views (06/10/2025 4:49 PM CDT) Anatomical Region Laterality Modality Body, Chest N/A Computed Radiogr aphy 06/10/2025 5:15 PM CDT Impressions 06/10/2025 5:15 PM CDT Comparison 06/02/2025 8:12 AM. Median sternotomy wires aligned and intact. Aortic valve replacement again seen. Left subclavian pacemaker defibrillator with right atrial and right ventricular leads again seen. Right chest tube has been removed. Multiple right rib fractures with associated extrapleural hematoma again noted. Subcutaneous gas again seen in the right neck and right lateral chest wall. Mild right perihilar opacity compatible with atelectasis/lung contusion again seen. Small right apical pneumothorax unchanged. No left pneumothorax. Heart size remains within normal limits. Electronically signed by: Franklin Hampton M.D. Narrative 06/10/2025 5:15 PM CDT EXAMINATION: 2 view chest radiograph Procedure Note Franklin Hampton MD - 06/10/2025 EXAMINATION: 2 view chest radiograph IMPRESSION: Comparison 06/02/2025 8:12 AM. Median sternotomy wires aligned and intact. Aortic valve replacement again seen. Left subclavian pacemaker defibrillator with right atrial and right ventricular leads again seen. Right chest tube has been removed. Multiple right rib fractures with associated extrapleural hematoma again noted. Subcutaneous gas again seen in the right neck and right lateral chest wall. Mild right perihilar opacity compatible with atelectasis/lung contusion again seen. Small right apical pneumothorax unchanged. No left pneumothorax. Heart size remains within normal limits. Electronically signed by: Franklin Hampton M.D. us Yamila Harding [employer] IMG XR PROCEDURES Final R esult * POCT glucose (06/10/2025 12:02 PM CDT) Glucose, POC 167 70 - 199 mg/dL Blood 06/10/2025 12:0 2 PM CDT 06/10/2025 12:02 PM CDT us Pineda Sorto MD LAB POCT ORDERABLES - DEV ICE Final Result [facility] [place] [address] * XR Chest 1 View (06/10/2025 8:27 AM CDT) Anatomical Region Laterality Modality Body, Chest N/A Computed Radiogr aphy 06/10/2025 10:0 5 AM CDT Impressions 06/10/2025 3:57 PM CDT The current study is compared with the prior radiograph dated 06/09/2025. 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 Aortic valve replacement is present. Right chest tube is present. Patient status post median sternotomy with intact sternotomy wires. Mild atelectasis of the right midlung. No definite pleural effusion. No definite pneumothorax. Cardiomediastinal silhouette is unchanged. Unchanged multiple right-sided rib fractures. Moderate amount of soft tissue gas in the right axilla and right neck. Dictated by: Lamberto Castrejon M.D. The radiology attending physician has personally reviewed this study, and had reviewed and/or edited this written report and agrees with it. Electronically signed by: Jonn Francisco M.D. Narrative 06/10/2025 3:57 PM CDT EXAMINATION: 1 view chest radiograph Procedure Note Jonn Francisco MD - 06/10/2025 EXAMINATION: 1 view chest radiograph IMPRESSION: The current study is compared with the prior radiograph dated 06/09/2025. 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 Aortic valve replacement is present. Right chest tube is present. Patient status post median sternotomy with intact sternotomy wires. Mild atelectasis of the right midlung. No definite pleural effusion. No definite pneumothorax. Cardiomediastinal silhouette is unchanged. Unchanged multiple right-sided rib fractures. Moderate amount of soft tissue gas in the right axilla and right neck. Dictated by: Lamberto Castrejon M.D. The radiology attending physician has personally reviewed this study, and had reviewed and/or edited this written report and agrees with it. Electronically signed by: Jonn Francisco M.D. us Yamila Harding GENERAL SCRAP WORKER IMG XR PROCEDURES Final R esult * POCT glucose (06/10/2025 8:05 AM CDT) Glucose, POC 122 70 - 199 mg/dL Blood 06/10/2025 8:05 AM CDT 06/10/2025 8:05 AM CDT Pineda Sorto MD LAB POCT ORDERABLES - DEV ICE Final Result Performing Organization Address [facility] de Phone Number [facility] [place] [address] * POCT glucose (06/09/2025 9:25 PM CDT) Glucose, POC 196 70 - 199 mg/dL Blood 06/09/2025 9:25 PM CDT 06/09/2025 9:25 PM CDT Pineda Sorto MD LAB POCT ORDERABLES - DEV ICE Final Result Performing Organization Address [facility] de Phone Number SHAE [facility] [place] [address] * eGFR (06/09/2025 8:49 PM CDT) eGFR 80 >=60 mL/min/1. 73 m2 Comment: Interpretive Data Reference Interval Normal >/= 90 mL/min/1.73m2 Mildly decreased* 60 - 89 mL/min/1.73m2 Mildly to moderately decreased 45 - 59 mL/min/1.73m2 Moderately to severely decreased 30 - 44 mL/min/1.73m2 Severely decreased 15 - 29 mL/min/1.73m2 Kidney Failure < 15 mL/min/1.73m2 *Relative to young adult level Estimated glomerular filtration rate is determined by the 2020 CKD-EPI equation recommended by the National Kidney Foundation (A Unifying Approach to GFR Estimation: Recommendations of the NKF-ASK Task Force on Reassessing the Inclusion of Race in Diagnosing Kidney Disease, JASN 2020). The CKD-EPI equation should not be used for patients with unstable renal function and has not been validated in children and those over 70. Current interpretive data was last reviewed 2021. Blood 06/09/2025 8:49 PM CDT 06/09/2025 9:02 PM CDT us Rick Infante NP LAB BLOOD ORDERABLES Fi nal Result Performing Organization Address [facility] Co de Phone Number [facility] [place] [address] * (ABNORMAL) CBC without differential (06/09/2025 8:49 PM CDT) [facility] WBC 7.36 3.80 - 9.90 K/cumm Hgb 8.3(L) 13.0 - 17.5 g/dL [facility] Hct 25.0(L) 38.9 - 50.3 % [facility] Plt 141(L) 150 - 400 K/cumm [facility] MPV 10.9 9.1 - 12.3 fL [facility] RBC 2.71(L) 4.30 - 5.80 M/cumm [facility] MCV 92.3 81.3 - 96.4 fL [facility] MCH 30.6 27.1 - 33.3 pg [facility] MCHC 33.2 32.3 - 35.7 g/dL [facility] RDW CV 14.8 11.1 - 14.9 % [facility] RDW SD 49.1(H) 35.7 - 48.1 fL [facility] NRBC abs 0.00 0.00 - 0.01 K/cumm [facility] Blood 06/09/2025 8:49 PM CDT 06/09/2025 9:03 PM CDT Rick Infante GENERAL SCRAP WORKER LAB BLOOD ORDERABLES Fi nal Result Performing Organization Address [facility] Co de Phone Number [facility] Department [place] [address] * Phosphorus (06/09/2025 8:49 PM CDT) [facility] Phosphorus, pl 3.1 2.3 - 4.5 mg/dL Blood 06/09/2025 8:49 PM CDT 06/09/2025 9:02 PM CDT Aida Davila DNP LAB BLOOD ORDERABLES F inal Result [facility] [place] [address] * Magnesium (06/09/2025 8:49 PM CDT) [facility] Magnesium 2.1 1.4 - 2.5 mg/dL Blood 06/09/2025 8:49 PM CDT 06/09/2025 9:02 PM CDT Aida Davila [facility] LAB BLOOD ORDERABLES F inal Result Performing Organization Address [facility] Co de Phone Number [facility] Department [place] [address] * (ABNORMAL) Basic metabolic panel (06/09/2025 8:49 PM CDT) [facility] Sodium 137 135 - 145 mmol/L Potassium, pl 4.2 3.3 - 4.9 mmol/L [facility] Comment:Hemolyzed; Potassium value may be falsely elevated by as much as 0.3-0.5 mmol/L. Suggest redraw and reanalysis. Chloride 104 97 - 110 mmol/L [facility] CO2 24 22 - 32 mmol/L [facility] Anion gap 9 2 - 15 mmol/L [facility] BUN 33(H) 6 - 25 mg/dL [facility] Creatinine 0.92 0.80 - 1.30 mg/dL [facility] Glucose 218(H) 70 - 199 mg/dL [facility] Comment: Interpretive Data Fasting glucose >/= 126 mg/dl is diagnostic for diabetes. Fasting is defined as no caloric intake for at least 8 hours. Fasting glucose between 100 mg/dl to 125 mg/dl is diagnostic of prediabetes. In a patient with classic symptoms of hyperglycemia or hyperglycemic crisis, a random glucose >/= 200 mg/dl is diagnostic for diabetes. In the absence of unequivocal hyperglycemia, results should be confirmed by repeat testing. The classification and Diagnosis of Diabetes Diabetes Care 2021; 46: S19-S40. Current interpretive data was last revised 2022. Calcium 7.7(L) 8.5 - 10.3 mg/dL [facility] Blood 06/09/2025 8:49 PM CDT 06/09/2025 9:02 PM CDT Rick Infante NP LAB BLOOD ORDERABLES Fi nal Result [facility] Department [place] [address] * Critical Care (06/09/2025 7:18 PM CDT) Narrative Joseph Montenegro MD - 06/09/2025 7:18 PM CDT Joseph Montenegro MD 06/09/2025 9:49 PM Critical Care Performed by: Estephania Cortez NP Authorized by: Estephania Cortez NP CRITICAL CARE: Team: SICU BLUE Shift: PM Level of Billing: Subsequent Hospital Visit Level 3 My time spent with this patient was 45 minutes: Critical Provider Statement: I have seen and examined the patient on this day of service. I have reviewed and confirmed the history, physical exam, laboratory, and radiographic data as documented in the ICU note. I have reviewed and discussed my treatment plan with the patient's team and other medical/railroad design consultant staff. This time was in addition to and separate from care provided by other practitioners on this day of service. I spent time reviewing and interpreting data from bedside monitors, laboratory results, and imaging and I spent time documenting in the medical record Estephania Cortez GENERAL SCRAP WORKER IN CLINIC/BEDSIDE O RDERABLES Final Result * (ABNORMAL) POCT glucose (06/09/2025 6:11 PM CDT) Glucose, POC 323(H) 70 - 199 mg/dL Blood 06/09/2025 6:11 PM CDT 06/09/2025 6:11 PM CDT Pineda Sorto MD LAB POCT ORDERABLES - DEV ICE Final Result [facility] MOR[facility] Department [place] [address] * (ABNORMAL) POCT glucose (06/09/2025 4:37 PM CDT) Glucose, POC 306(H) 70 - 199 mg/dL Blood 06/09/2025 4:37 PM CDT 06/09/2025 4:37 PM CDT us Pineda Sorto MD LAB POCT ORDERABLES - DEV ICE Final Result [facility] [place] [address] * XR Chest 1 View (06/09/2025 2:41 PM CDT) Anatomical Region Laterality Modality Body, Chest N/A Computed Radiogr aphy 06/09/2025 3:05 PM CDT Addenda Addendum by Nicolasa Oliver MD on 06/09/2025 8:16 PM CDT Addendum: There is a stable miniscule right apical pneumothorax. Electronically signed by: Nicolasa Oliver M.D. Impressions 06/09/2025 3:05 PM CDT Comparison is made to prior chest radiograph dated 06/08/2025. Sternotomy wires are unchanged. There is a prosthetic aortic valve. There is a right-sided chest tube is in place. Multiple right-sided rib fractures are redemonstrated. Definite pneumothorax is identified.. No pleural effusion. Consolidation the right lung is most consistent pulmonary laceration. Stable heart size. There is diffuse subcutaneous gas. Electronically signed by: Nicolasa Oliver M.D. Narrative 06/09/2025 3:05 PM CDT EXAMINATION: 1 view chest radiograph Procedure Note Nicolasa Oliver MD - 06/09/2025 EXAMINATION: 1 view chest radiograph IMPRESSION: Comparison is made to prior chest radiograph dated 06/08/2025. Sternotomy wires are unchanged. There is a prosthetic aortic valve. There is a right-sided chest tube is in place. Multiple right-sided rib fractures are redemonstrated. Definite pneumothorax is identified.. No pleural effusion. Consolidation the right lung is most consistent pulmonary laceration. Stable heart size. There is diffuse subcutaneous gas. Electronically signed by: Nicolasa Oliver M.D. Aida Davila DNP IMG XR PROCEDURES Edit ed Result - Final * (ABNORMAL) POCT glucose (06/09/2025 1:04 PM CDT) Glucose, POC 248(H) 70 - 199 mg/dL Blood 06/09/2025 1:04 PM CDT 06/09/2025 1:04 PM CDT Result [facility] Pineda Sorto MD LAB POCT ORDERABLES - DEV ICE Final Result Performing Organization Address [facility] Co de Phone Number [facility] [place] [place] [address] * POCT glucose (06/09/2025 8:41 AM CDT) Glucose, POC 104 70 - 199 mg/dL Blood 06/09/2025 8:41 AM CDT 06/09/2025 8:41 AM CDT Pineda Sorto MD LAB POCT ORDERABLES - DEV ICE Final Result Performing Organization Address City/[facility]/ZIP Co de Phone Number [facility] [place] [address] * Critical Care (06/09/2025 8:00 AM CDT) Narrative Miguelito Callahan MD - 06/09/2025 8:00 AM CDT Miguelito Callahan MD 06/10/2025 6:01 PM Critical Care Performed by: Aida Davila DNP Authorized by: Aida Davila DNP CRITICAL CARE: Team: SICU BLUE Shift: AM Level of Billing: Subsequent Hospital Visit Level 3 My time spent with this patient was 50 minutes: Critical Provider Statement: I have seen and examined the patient on this day of service. I have reviewed and confirmed the history, physical exam, laboratory, and radiographic data as documented in the ICU note. I have reviewed and discussed my treatment plan with the patient's team and other medical/railroad design consultant staff. This time was in addition to and separate from care provided by other practitioners on this day of service. I spent time reviewing and interpreting data from bedside monitors, laboratory results, and imaging and I spent time documenting in the medical record Aida Davila DNP IN CLINIC/BEDSIDE DAVIDE ELAINE Final Result * POCT glucose (06/08/2025 9:03 PM CDT) Glucose, POC 130 70 - 199 mg/dL Blood 06/08/2025 9:03 PM CDT 06/08/2025 9:03 PM CDT Pineda Sorto MD LAB POCT ORDERABLES - DEV ICE Final Result [facility] Department [place] [address] * eGFR (06/08/2025 6:42 PM CDT) eGFR 83 >=60 mL/min/1. 73 m2 Comment: Interpretive Data Reference Interval Normal >/= 90 mL/min/1.73m2 Mildly decreased* 60 - 89 mL/min/1.73m2 Mildly to moderately decreased 45 - 59 mL/min/1.73m2 Moderately to severely decreased 30 - 44 mL/min/1.73m2 Severely decreased 15 - 29 mL/min/1.73m2 Kidney Failure < 15 mL/min/1.73m2 *Relative to young adult level Estimated glomerular filtration rate is determined by the 2020 CKD-EPI equation recommended by the National Kidney Foundation (A Unifying Approach to GFR Estimation: Recommendations of the NKF-ASK Task Force on Reassessing the Inclusion of Race in Diagnosing Kidney Disease, JASN 2020). The CKD-EPI equation should not be used for patients with unstable renal function and has not been validated in children and those over 70. Current interpretive data was last reviewed 2021. Blood 06/08/2025 6:42 PM CDT 06/08/2025 7:04 PM CDT Rick Infante NP LAB BLOOD ORDERABLES Fi nal Result Performing Organization Address City/[facility]/ZIP Co de Phone Number [facility] Department [place] [address] * (ABNORMAL) CBC without differential (06/08/2025 6:42 PM CDT) WBC 9.44 3.80 - 9.90 K/cumm Hgb 9.1(L) 13.0 - 17.5 g/dL [facility] Hct 25.8(L) 38.9 - 50.3 % [facility] Plt 131(L) 150 - 400 K/cumm [facility] MPV 10.9 9.1 - 12.3 fL [facility] RBC 2.86(L) 4.30 - 5.80 M/cumm [facility] MCV 90.2 81.3 - 96.4 fL [facility] MCH 31.8 27.1 - 33.3 pg [facility] MCHC 35.3 32.3 - 35.7 g/dL [facility] RDW CV 14.7 11.1 - 14.9 % [facility] RDW SD 48.4(H) 35.7 - 48.1 fL [facility] NRBC abs 0.00 0.00 - 0.01 K/cumm [facility] Blood 06/08/2025 6:42 PM CDT 06/08/2025 7:57 PM CDT Rick Infante NP LAB BLOOD ORDERABLES Fi nal Result Performing Organization Address City/[facility]/ZIP Co de Phone Number [facility] [place] [address] * (ABNORMAL) Phosphorus (06/08/2025 6:42 PM CDT) [facility] Phosphorus, pl 2.1(L) 2.3 - 4.5 mg/dL Blood 06/08/2025 6:42 PM CDT 06/08/2025 7:04 PM CDT [facility] LAB BLOOD ORDERABLES F inal Result Performing Organization Address City/[facility]/[place] [address] * Magnesium (06/08/2025 6:42 PM CDT) [facility] Magnesium 2.1 1.4 - 2.5 mg/dL Blood 06/08/2025 6:42 PM CDT 06/08/2025 7:04 PM CDT [facility] LAB BLOOD ORDERABLES F inal Result Performing Organization Address City/[facility]/[place]IP [place] [address] * (ABNORMAL) Basic metabolic panel (06/08/2025 6:42 PM CDT) [facility] Sodium 136 135 - 145 mmol/L Potassium, pl 4.8 3.3 - 4.9 mmol/L [facility] Chloride 107 97 - 110 mmol/L [facility] CO2 22 22 - 32 mmol/L [facility] Anion gap 7 2 - 15 mmol/L [facility] BUN 28(H) 6 - 25 mg/dL [facility] Creatinine 0.86 0.80 - 1.30 mg/dL [facility] Glucose 175 70 - 199 mg/dL [facility] Comment: Interpretive Data Fasting glucose >/= 126 mg/dl is diagnostic for diabetes. Fasting is defined as no caloric intake for at least 8 hours. Fasting glucose between 100 mg/dl to 125 mg/dl is diagnostic of prediabetes. In a patient with classic symptoms of hyperglycemia or hyperglycemic crisis, a random glucose >/= 200 mg/dl is diagnostic for diabetes. In the absence of unequivocal hyperglycemia, results should be confirmed by repeat testing. The classification and Diagnosis of Diabetes Diabetes Care 2021; 46: S19-S40. Current interpretive data was last revised 2022. Calcium 7.9(L) 8.5 - 10.3 mg/dL [facility] Blood 06/08/2025 6:42 PM CDT 06/08/2025 7:04 PM CDT us Rick Infante NP LAB BLOOD ORDERABLES Fi nal Result [facility] [place] [address] * XR Chest 1 View (06/08/2025 6:32 PM CDT) Anatomical Region Laterality Modality Body, Chest N/A Digital Radiogra phy 06/09/2025 10:3 9 AM CDT Impressions 06/09/2025 10:39 AM CDT Comparison is made to prior chest radiograph dated 06/07/2025. Median sternotomy wires are unchanged compared to prior study. There is a prosthetic aortic valve. The left subclavian approach pacemaker/defibrillator leads in the right atrium and right ventricle. Right-sided chest tube is in place with side port located in the chest wall. There is extensive subcutaneous gas. Stable miniscule right pneumothorax. No left pneumothorax. Right-sided opacities in the right midlung are consistent with pulmonary laceration. Heart size unchanged. Electronically signed by: Nicolasa Oliver M.D. Narrative 06/09/2025 10:39 AM CDT EXAMINATION: 1 view chest radiograph Procedure Note Nicolasa Oliver MD - 06/09/2025 EXAMINATION: 1 view chest radiograph IMPRESSION: Comparison is made to prior chest radiograph dated 06/07/2025. Median sternotomy wires are unchanged compared to prior study. There is a prosthetic aortic valve. The left subclavian approach pacemaker/defibrillator leads in the right atrium and right ventricle. Right-sided chest tube is in place with side port located in the chest wall. There is extensive subcutaneous gas. Stable miniscule right pneumothorax. No left pneumothorax. Right-sided opacities in the right midlung are consistent with pulmonary laceration. Heart size unchanged. Electronically signed by: Nicolasa Oliver M.D. Aida Davila DNP IMG XR PROCEDURES Anu l Result * Critical Care (06/08/2025 6:18 PM CDT) Narrative Joseph Montenegro MD - 06/08/2025 6:18 PM CDT Joseph Montenegro MD 06/09/2025 6:13 AM Critical Care Performed by: Estephania Cortez NP Authorized by: Estephania Cortez NP CRITICAL CARE: Team: SICU BLUE Shift: PM Level of Billing: Subsequent Hospital Visit Level 3 My time spent with this patient was 45 minutes: Critical Provider Statement: I have seen and examined the patient on this day of service. I have reviewed and confirmed the history, physical exam, laboratory, and radiographic data as documented in the ICU note. I have reviewed and discussed my treatment plan with the patient's team and other medical/railroad design consultant staff. This time was in addition to and separate from care provided by other practitioners on this day of service. I spent time reviewing and interpreting data from bedside monitors, laboratory results, and imaging and I spent time documenting in the medical record Estephania Cortez GENERAL SCRAP WORKER IN CLINIC/BEDSIDE O RDERABLES Final Result * POCT glucose (06/08/2025 6:13 PM CDT) Glucose, POC 181 70 - 199 mg/dL Blood 06/08/2025 6:13 PM CDT 06/08/2025 6:13 PM CDT Pineda Sorto MD LAB POCT ORDERABLES - DEV ICE Final Result Performing Organization Address [facility] [place] [address] * (ABNORMAL) POCT glucose (06/08/2025 12:56 PM CDT) Glucose, POC 213(H) 70 - 199 mg/dL Comment:Glu2: RN/MD Notified Glucose comment 1 Glu2: RN/MD Notified [facility] Blood 06/08/2025 12:5 6 PM CDT 06/08/2025 12:56 PM CDT Pineda Sorto MD LAB POCT ORDERABLES - DEV ICE Final Result Performing Organization Address [facility] de Phone Number [facility] [place] [address] * POCT glucose (06/08/2025 9:20 AM CDT) Glucose, POC 110 70 - 199 mg/dL Blood 06/08/2025 9:20 AM CDT 06/08/2025 9:20 AM CDT Pineda Sorto MD LAB POCT ORDERABLES - DEV ICE Final Result Performing Organization Address [facility] de Phone Number [facility] [place] [place] [address] * Critical Care (06/08/2025 8:18 AM CDT) Narrative Miguelito Callahan MD - 06/08/2025 8:18 AM CDT Miguelito Callahan MD 06/08/2025 6:04 PM Critical Care Performed by: Aida Davila DNP Authorized by: Aida Davila DNP CRITICAL CARE: Team: SICU BLUE Shift: AM Level of Billing: Subsequent Hospital Visit Level 3 My time spent with this patient was 70 minutes: Critical Provider Statement: I have seen and examined the patient on this day of service. I have reviewed and confirmed the history, physical exam, laboratory, and radiographic data as documented in the ICU note. I have reviewed and discussed my treatment plan with the patient's team and other medical/railroad design consultant staff. This time was in addition to and separate from care provided by other practitioners on this day of service. I spent time reviewing and interpreting data from bedside monitors, laboratory results, and imaging, I spent time discussing the management of this critically ill patient with consultants and the medical staff and I spent time documenting in the medical record Aida Davila DNP IN CLINIC/BEDSIDE DAVIDBlessing ELAINE Final Result * eGFR (06/07/2025 9:37 PM CDT) eGFR 80 >=60 mL/min/1. 73 m2 Comment: Interpretive Data Reference Interval Normal >/= 90 mL/min/1.73m2 Mildly decreased* 60 - 89 mL/min/1.73m2 Mildly to moderately decreased 45 - 59 mL/min/1.73m2 Moderately to severely decreased 30 - 44 mL/min/1.73m2 Severely decreased 15 - 29 mL/min/1.73m2 Kidney Failure < 15 mL/min/1.73m2 *Relative to young adult level Estimated glomerular filtration rate is determined by the 2020 CKD-EPI equation recommended by the National Kidney Foundation (A Unifying Approach to GFR Estimation: Recommendations of the NKF-ASK Task Force on Reassessing the Inclusion of Race in Diagnosing Kidney Disease, JASN 202). The CKD-EPI equation should not be used for patients with unstable renal function and has not been validated in children and those over 70. Current interpretive data was last reviewed 2021. Blood 06/07/2025 9:37 PM CDT 06/07/2025 9:52 PM CDT Pineda Sorto MD LAB BLOOD ORDERABLES Anu olson Result [facility] [place] [address] * (ABNORMAL) CBC without differential (06/07/2025 9:37 PM CDT) [facility] WBC 8.67 3.80 - 9.90 K/cumm Hgb 8.4(L) 13.0 - 17.5 g/dL [facility] Hct 24.5(L) 38.9 - 50.3 % [facility] Plt 108(L) 150 - 400 K/cumm [facility] MPV 10.9 9.1 - 12.3 fL [facility] RBC 2.69(L) 4.30 - 5.80 M/cumm [facility] MCV 91.1 81.3 - 96.4 fL [facility] MCH 31.2 27.1 - 33.3 pg [facility] MCHC 34.3 32.3 - 35.7 g/dL [facility] RDW CV 14.8 11.1 - 14.9 % [facility] RDW SD 49.3(H) 35.7 - 48.1 fL [facility] NRBC abs 0.00 0.00 - 0.01 K/cumm [facility] Blood 06/07/2025 9:37 PM CDT 06/07/2025 9:49 PM CDT Rick Infante GENERAL SCRAP WORK[employer] LAB BLOOD ORDERABLES Fi nal Result Performing Organization Address City/[facility]/ZIP Co de Phone Number [facility] [place] [place] [address] * Phosphorus (06/07/2025 9:37 PM CDT) [facility] Phosphorus, pl 2.5 2.3 - 4.5 mg/dL Blood 06/07/2025 9:37 PM CDT 06/07/2025 9:47 PM CDT Aida Davila DNP LAB BLOOD ORDERABLES F inal Result Performing Organization Address City/[facility]/ZIP Co de Phone Number [facility] [place] [address] * Magnesium (06/07/2025 9:37 PM CDT) Magnesium 1.9 1.4 - 2.5 mg/dL Blood 06/07/2025 9:37 PM CDT 06/07/2025 9:47 PM CDT Aida Davila [facility] LAB BLOOD ORDERABLES F inal Result [facility] Department [place] [address] * (ABNORMAL) Basic metabolic panel (06/07/2025 9:37 PM CDT) Pathologist [facility] Sodium 136 135 - 145 mmol/L Potassium, pl 4.4 3.3 - 4.9 mmol/L [facility] Chloride 108 97 - 110 mmol/L [facility] CO2 23 22 - 32 mmol/L [facility] Anion gap 5 2 - 15 mmol/L [facility] BUN 24 6 - 25 mg/dL [facility] Creatinine 0.92 0.80 - 1.30 mg/dL [facility] Glucose 95 70 - 199 mg/dL [facility] Comment: Interpretive Data Fasting glucose >/= 126 mg/dl is diagnostic for diabetes. Fasting is defined as no caloric intake for at least 8 hours. Fasting glucose between 100 mg/dl to 125 mg/dl is diagnostic of prediabetes. In a patient with classic symptoms of hyperglycemia or hyperglycemic crisis, a random glucose >/= 200 mg/dl is diagnostic for diabetes. In the absence of unequivocal hyperglycemia, results should be confirmed by repeat testing. The classification and Diagnosis of Diabetes Diabetes Care 2021; 46: S19-S40. Current interpretive data was last revised 2022. Calcium 7.7(L) 8.5 - 10.3 mg/dL [facility] Blood 06/07/2025 9:37 PM CDT 06/07/2025 9:47 PM CDT Pineda Sorto MD LAB BLOOD ORDERABLES Anu l Result [facility] [place] [address] * POCT glucose (06/07/2025 8:58 PM CDT) Glucose, POC 111 70 - 199 mg/dL Blood 06/07/2025 8:58 PM CDT 06/07/2025 8:58 PM CDT us Pineda Sorto MD LAB POCT ORDERABLES - DEV ICE Final Result Performing Organization Address [facility] Co de Phone Number [facility] Department of [place] [address] * Critical Care (06/07/2025 6:30 PM CDT) Narrative Joseph Montenegro MD - 06/07/2025 6:30 PM CDT Joseph Montenegro MD 06/08/2025 6:14 AM Critical Care Performed by: Estephania Cortez NP Authorized by: Estephania Cortez NP CRITICAL CARE: Team: SICU BLUE Shift: PM Level of Billing: Subsequent Hospital Visit Level 3 My time spent with this patient was 65 minutes: Critical Provider Statement: I have seen and examined the patient on this day of service. I have reviewed and confirmed the history, physical exam, laboratory, and radiographic data as documented in the ICU note. I have reviewed and discussed my treatment plan with the patient's team and other medical/railroad design consultant staff. This time was in addition to and separate from care provided by other practitioners on this day of service. I spent time reviewing and interpreting data from bedside monitors, laboratory results, and imaging and I spent time documenting in the medical record us Estephania Cortez GENERAL SCRAP WORKER IN CLINIC/BEDSIDE O RDERABLES Final Result * (ABNORMAL) POCT glucose (06/07/2025 3:24 PM CDT) Glucose, POC 215(H) 70 - 199 mg/dL Blood 06/07/2025 3:24 PM CDT 06/07/2025 3:24 PM CDT Pineda Sorto MD LAB POCT ORDERABLES - DEV ICE Final Result [facility] [place] [address] * XR Chest 1 View (06/07/2025 3:10 PM CDT) Anatomical Region Laterality Modality Body, Chest N/A Digital Radiogra phy 06/08/2025 7:06 AM CDT Impressions 06/08/2025 7:06 AM CDT Comparison made 06/06/2025. Similar residual left chest wall ICD/pacemaker, aortic valve replacement, median sternotomy wires. Similar position of right chest tube. Similar chest wall subcutaneous gas. Unchanged cardiomediastinal silhouette. Similar right midlung opacities, compatible with pulmonary laceration. Similar trace right pneumothorax, although partially obscured by the overlying subcutaneous gas. No left pneumothorax. Redemonstrated right rib fractures. No pleural effusion. Electronically signed by: Shamar Alcazar M.D. Narrative 06/08/2025 7:06 AM CDT EXAMINATION: 1 view chest radiograph Procedure Note Shamar Alcazar MD - 06/08/2025 EXAMINATION: 1 view chest radiograph IMPRESSION: Comparison made 06/06/2025. Similar residual left chest wall ICD/pacemaker, aortic valve replacement, median sternotomy wires. Similar position of right chest tube. Similar chest wall subcutaneous gas. Unchanged cardiomediastinal silhouette. Similar right midlung opacities, compatible with pulmonary laceration. Similar trace right pneumothorax, although partially obscured by the overlying subcutaneous gas. No left pneumothorax. Redemonstrated right rib fractures. No pleural effusion. Electronically signed by: Shamar Alcazar M.D. Pineda Sorto MD IMG XR PROCEDURES Final R esult * US Carotids Duplex Bilateral (06/07/2025 2:18 PM CDT) Anatomical Region Laterality Modality Vascular Bilateral Ultrasound 06/07/2025 10:1 3 AM CDT Narrative 06/07/2025 3:33 PM CDT [facility] - Department of Vascular Surgery, Vascular Laboratory [address] [place] [id number] Carotid Duplex Ultrasound Report Patient Name: ZULAY MACIAS : 1935 (89y 4m) Study Date: 06/07/2025 10:13:42 AM Gender: M Tech: Nancy COBB Location: [id number] Ref Provider: PINEDA SORTO Quality: Adequate Order Provider: PINEDA SORTO PROCEDURES: Carotid Report: Carotid duplex examination of the extracranial arteries was performed using 2D, color and spectral Doppler. INDICATIONS: Syncope and Collapse; possible. MEASUREMENTS: Right Value Units Left Value Units RT Prox CCA PSV 71 cm/sec LT Prox CCA PSV 90 cm/sec RT Prox CCA EDV 0 cm/sec LT Prox CCA EDV 21 cm/sec RT Distal CCA PSV 110 cm/sec LT Distal CCA PSV 90 cm/sec RT Distal CCA EDV 17 cm/sec LT Distal CCA EDV 23 cm/sec RT Prox ICA PSV 87 cm/sec LT Prox ICA PSV 93 cm/sec RT Prox ICA EDV 16 cm/sec LT Prox ICA EDV 22 cm/sec RT Mid ICA PSV 109 cm/sec LT Mid ICA PSV 103 cm/sec RT Mid ICA EDV 20 cm/sec LT Mid ICA EDV 22 cm/sec RT Distal ICA PSV 69 cm/sec LT Distal ICA PSV 85 cm/sec RT Distal ICA EDV 15 cm/sec LT Distal ICA EDV 23 cm/sec RT ECA Prx PSV 101 cm/sec LT ECA Prx PSV 79 cm/sec RT ICA/CCA 0.99 ratio LT ICA/CCA 1.14 ratio RT VERT PSV 30 cm/sec LT VERT PSV 68 cm/sec FINDINGS: Performing Supply Assistant: Nola Cobb RVT. Rt Common Carotid Artery: The plaque in the right CCA appears to be heterogeneous and irregular. Atherosclerotic changes of the right common carotid artery with no hemodynamically significant Doppler findings. Rt Internal Carotid Artery: The plaque in the right internal carotid artery appears to be heterogeneous and irregular. Atherosclerotic changes of the right internal carotid artery without hemodynamically significant Doppler findings. <50% stenosis. Rt External Carotid Artery: Patent right external carotid artery with evidence of atherosclerotic disease present. Rt Vertebral Artery: The right vertebral artery is patent with antegrade flow. Lt Common Carotid Artery: The plaque in the left CCA appears to be heterogeneous and irregular. Atherosclerotic changes of the left common carotid artery with no hemodynamically significant Doppler findings. Lt Internal Carotid Artery: The plaque in the left internal carotid artery appears to be heterogeneous and irregular. Atherosclerotic changes of the left internal carotid artery without hemodynamically significant Doppler findings. <50% stenosis. Lt External Carotid Artery: Patent left external carotid artery with evidence of atherosclerotic disease present. Lt Vertebral Artery: The left vertebral artery is patent with antegrade flow. CONCLUSIONS: 1. 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 2. The left internal carotid artery disease is consistent with a less than 50% stenosis. 3. No evidence of hemodynamically significant stenosis in the common carotid artery bilaterally. 4. Normal, antegrade flow is noted in bilateral vertebral arteries. HISTORY: HX of CAD s/p 2v CABG. PREVIOUS STUDIES: No previous studies for comparison. DISCLAIMER: The study images and the final report will be retained in the patient chart by the Vascular Laboratory for the legally required time period. This chart constitutes the legal record of any testing performed. ATTESTATION: I have reviewed and interpreted the pertinent images and measurements of this study. I attest to the conclusions in the final report that is provided above. Electronically Signed By: Rj Parsons MD [facility] [phone] 06/07/2025 2:48:24 PM CDT Procedure Note Rj Parsons MD - 06/07/2025 [facility] - Department of Vascular Surgery,Vascular Laboratory [address] [place] [address] Carotid Duplex Ultrasound Report Patient Name: ZULAY MACIAS : 1935 (89y 4m) Study Date: 06/07/2025 10:13:42 AM Gender: M Tech: Nancy COBB Location: [id number] Ref Provider: PINEDA SORTO Quality: Adequate Order Provider: PINEDA SORTO PROCEDURES: Carotid Report: Carotid duplex examination of the extracranial arterieswas performed using 2D, color and spectral Doppler. INDICATIONS: Syncope and Collapse; possible. MEASUREMENTS: Right Value Units Left Value Units RT Prox CCA PSV 71 cm/sec LT Prox CCA PSV 90 cm/sec RT Prox CCA EDV 0 cm/sec LT Prox CCA EDV 21 cm/sec RT Distal CCA PSV 110 cm/sec LT Distal CCA PSV 90 cm/sec RT Distal CCA EDV 17 cm/sec LT Distal CCA EDV 23 cm/sec RT Prox ICA PSV 87 cm/sec LT Prox ICA PSV 93 cm/sec RT Prox ICA EDV 16 cm/sec LT Prox ICA EDV 22 cm/sec RT Mid ICA PSV 109 cm/sec LT Mid ICA PSV 103 cm/sec RT Mid ICA EDV 20 cm/sec LT Mid ICA EDV 22 cm/sec RT Distal ICA PSV 69 cm/sec LT Distal ICA PSV 85 cm/sec RT Distal ICA EDV 15 cm/sec LT Distal ICA EDV 23 cm/sec RT ECA Prx PSV 101 cm/sec LT ECA Prx PSV 79 cm/sec RT ICA/CCA 0.99 ratio LT ICA/CCA 1.14 ratio RT VERT PSV 30 cm/sec LT VERT PSV 68 cm/sec FINDINGS: Performing Supply Assistant: Nola Cobb RVT. Rt Common Carotid Artery: The plaque in the right CCA appears to beheterogeneous and irregular. Atherosclerotic changes of the right common carotid artery withno hemodynamically significant Doppler findings. Rt Internal Carotid Artery: The plaque in the right internal carotidartery appears to be heterogeneous and irregular. Atherosclerotic changes of the right internalcarotid artery without hemodynamically significant Doppler findings. <50% stenosis. Rt External Carotid Artery: Patent right external carotid artery withevidence of atherosclerotic disease present. Rt Vertebral Artery: The right vertebral artery is patent with antegradeflow. Lt Common Carotid Artery: The plaque in the left CCA appears to beheterogeneous and irregular. Atherosclerotic changes of the left common carotid artery withno hemodynamically significant Doppler findings. Lt Internal Carotid Artery: The plaque in the left internal carotid arteryappears to be heterogeneous and irregular. Atherosclerotic changes of the left internalcarotid artery without hemodynamically significant Doppler findings. <50% stenosis. Lt External Carotid Artery: Patent left external carotid artery withevidence of atherosclerotic disease present. Lt Vertebral Artery: The left vertebral artery is patent with antegradeflow. CONCLUSIONS: 1. The right internal carotid artery disease is consistent with a lessthan 50% stenosis. 2. The left internal carotid artery disease is consistent with a less than50% stenosis. 3. No evidence of hemodynamically significant stenosis in the commoncarotid artery bilaterally. 4. Normal, antegrade flow is noted in bilateral vertebral arteries. HISTORY: HX of CAD s/p 2v CABG. PREVIOUS STUDIES: No previous studies for comparison. DISCLAIMER: The study images and the final report will be retained in the patientchart by the Vascular Laboratory for the legally required time period. This chartconstitutes the legal record of any testing performed. ATTESTATION: I have reviewed and interpreted the pertinent images and measurements ofthis study. I attest to the conclusions in the final report that is provided above. Electronically Signed By: Rj Parsons MD [facility] [phone] 06/07/2025 2:48:24 PM CDT us Pineda Sorto MD IMG US PROCEDURES Final R esult * POCT glucose (06/07/2025 12:46 PM CDT) Glucose, POC 180 70 - 199 mg/dL Blood 06/07/2025 12:4 6 PM CDT 06/07/2025 12:46 PM CDT Pineda Sorto MD LAB POCT ORDERABLES - DEV ICE Final Result [facility] [place] [address] * Critical Care (06/07/2025 7:51 AM CDT) Narrative Miguelito Callahan MD - 06/07/2025 7:51 AM CDT Miguelito Callahan MD 06/07/2025 6:09 PM Critical Care Performed by: Aida Davila DNP Authorized by: Aida Davila DNP CRITICAL CARE: Team: SICU BLUE Shift: AM Level of Billing: Critical Care My time spent with this patient was 80 minutes: Critical Provider Statement: I have seen and examined the patient on this day of service. I have reviewed and confirmed the history, physical exam, laboratory and radiologic data as documented in the signed ICU note. I have reviewed and discussed my treatment plan with the ICU team and other medical/railroad design consultant staff, making frequent assessments and decisions regarding this patient's complex medical care. Critical Care time was exclusive of time spent performing separately billed procedures, treating other patients, and teaching. This time was in addition to and separate from critical care provided by other practitioners in my group on this day of service. Critical Care was necessary to treat or prevent imminent or life-threatening deterioration of the following conditions: I spent time reviewing and interpreting data from bedside monitors, laboratory results, and imaging, I spent time discussing the management of this critically ill patient with consultants and the medical staff and I spent time documenting in the medical record Aida Davila DNP IN CLINIC/BEDSIDE [facility] Final Result * POCT glucose (06/07/2025 7:16 AM CDT) Glucose, POC 132 70 - 199 mg/dL Blood 06/07/2025 7:16 AM CDT 06/07/2025 7:16 AM CDT Result [facility] Pineda Sorto MD LAB POCT ORDERABLES - DEV ICE Final Result Performing Organization Address [facility]/ZIP Co de Phone Number [facility] [place] [address] * POCT glucose (06/07/2025 4:05 AM CDT) Glucose, POC 143 70 - 199 mg/dL Blood 06/07/2025 4:05 AM CDT 06/07/2025 4:05 AM CDT Pineda Sorto MD LAB POCT ORDERABLES - DEV ICE Final Result [facility] [place] [address] * POCT glucose (06/06/2025 11:26 PM CDT) Glucose, POC 119 70 - 199 mg/dL Blood 06/06/2025 11:2 6 PM CDT 06/06/2025 11:26 PM CDT Pineda Sorto MD LAB POCT ORDERABLES - DEV ICE Final Result [facility] [place] [address] * POCT glucose (06/06/2025 7:52 PM CDT) Pathologist [facility] Glucose, POC 146 70 - 199 mg/dL Blood 06/06/2025 7:52 PM CDT 06/06/2025 7:52 PM CDT Pineda Sorto MD LAB POCT ORDERABLES - DEV ICE Final Result Performing Organization Address City/[facility] Co de Phone Number [facility] [place] [address] * eGFR (06/06/2025 7:48 PM CDT) [facility] eGFR 80 >=60 mL/min/1. 73 m2 Comment: Interpretive Data Reference Interval Normal >/= 90 mL/min/1.73m2 Mildly decreased* 60 - 89 mL/min/1.73m2 Mildly to moderately decreased 45 - 59 mL/min/1.73m2 Moderately to severely decreased 30 - 44 mL/min/1.73m2 Severely decreased 15 - 29 mL/min/1.73m2 Kidney Failure < 15 mL/min/1.73m2 *Relative to young adult level Estimated glomerular filtration rate is determined by the 2020 CKD-EPI equation recommended by the National Kidney Foundation (A Unifying Approach to GFR Estimation: Recommendations of the NKF-ASK Task Force on Reassessing the Inclusion of Race in Diagnosing Kidney Disease, JASN 2020). The CKD-EPI equation should not be used for patients with unstable renal function and has not been validated in children and those over 70. Current interpretive data was last reviewed 2021. Blood 06/06/2025 7:48 PM CDT 06/06/2025 8:06 PM CDT Rick Infante NP LAB BLOOD ORDERABLES Fi nal Result Performing Organization Address [facility] [place] [address] * aPTT (06/06/2025 7:48 PM CDT) aPTT 27 26 - 38 sec Comment: Interpretive Data Heparin therapeutic range: 66.0 - 100.0 seconds. Range based on correlation with therapeutic heparin activity range of 0.3 - 0.7 Units/mL. Current interpretive data was last revised on 2023. Blood 06/06/2025 7:48 PM CDT 06/06/2025 8:13 PM CDT Result [facility] Pineda Sorto MD LAB BLOOD ORDERABLES Anu l Result Performing Organization Address [facility] de Phone Number [facility] [place] [address] * Protime-INR (06/06/2025 7:48 PM CDT) PT 12.8 10.2 - 13.5 sec INR 1.14 0.90 - 1.20 [facility] Comment: Interpretive data Oral anticoagulant therapeutic ranges: Venous thromboembolism prophylaxis or treatment: 2.0-3.0 CARDIOLOGY Standard range: 2.0-3.0 High-intensity range: 2.5-3.5 Refer to indication-specific guidelines for appropriate target ranges for prosthetic heart valve replacement. Current interpretive data was last revised on 2019. Blood 06/06/2025 7:48 PM CDT 06/06/2025 8:13 PM CDT Pineda Sorto MD LAB BLOOD ORDERABLES Anu l Result Performing Organization Address [facility] Co de Phone Number [facility] [place] [address] * (ABNORMAL) CBC without differential (06/06/2025 7:48 PM CDT) WBC 12.45(H) 3.80 - 9.90 K/cumm Hgb 9.0(L) 13.0 - 17.5 g/dL [facility] Hct 25.4(L) 38.9 - 50.3 % [facility] Plt 114(L) 150 - 400 K/cumm [facility] MPV 10.6 9.1 - 12.3 fL [facility] RBC 2.89(L) 4.30 - 5.80 M/cumm [facility] MCV 87.9 81.3 - 96.4 fL [facility] MCH 31.1 27.1 - 33.3 pg [facility] MCHC 35.4 32.3 - 35.7 g/dL [facility] RDW CV 15.2(H) 11.1 - 14.9 % [facility] RDW SD 48.8(H) 35.7 - 48.1 fL [facility] NRBC abs 0.00 0.00 - 0.01 K/cumm [facility] Blood 06/06/2025 7:48 PM CDT 06/06/2025 8:05 PM CDT Rick Infante NP LAB BLOOD ORDERABLES Fi nal Result Performing Organization Address [facility]/ZIP Co de Phone Number [facility] [place] [employer] [place] [address] * Magnesium (06/06/2025 7:48 PM CDT) Pathologist [facility] Magnesium 2.0 1.4 - 2.5 mg/dL Blood 06/06/2025 7:48 PM CDT 06/06/2025 8:06 PM CDT Pineda Sorto MD LAB BLOOD ORDERABLES Anu l Result [facility] [place] [address] * (ABNORMAL) Basic metabolic panel (06/06/2025 7:48 PM CDT) Pathologist [facility] Sodium 137 135 - 145 mmol/L Potassium, pl 4.2 3.3 - 4.9 mmol/L [facility] Chloride 109 97 - 110 mmol/L [facility] CO2 22 22 - 32 mmol/L [facility] Anion gap 6 2 - 15 mmol/L [facility] BUN 27(H) 6 - 25 mg/dL [facility] Creatinine 0.92 0.80 - 1.30 mg/dL [facility] Glucose 134 70 - 199 mg/dL [facility] Comment: Interpretive Data Fasting glucose >/= 126 mg/dl is diagnostic for diabetes. Fasting is defined as no caloric intake for at least 8 hours. Fasting glucose between 100 mg/dl to 125 mg/dl is diagnostic of prediabetes. In a patient with classic symptoms of hyperglycemia or hyperglycemic crisis, a random glucose >/= 200 mg/dl is diagnostic for diabetes. In the absence of unequivocal hyperglycemia, results should be confirmed by repeat testing. The classification and Diagnosis of Diabetes Diabetes Care 2021; 46: S19-S40. Current interpretive data was last revised 2022. Calcium 8.1(L) 8.5 - 10.3 mg/dL [facility] Blood 06/06/2025 7:48 PM CDT 06/06/2025 8:06 PM CDT Rick Infante NP LAB BLOOD ORDERABLES Fi nal Result [facility] [place] [address] * Critical Care (06/06/2025 6:46 PM CDT) Narrative Joseph Montenegro MD - 06/06/2025 6:46 PM CDT Joseph Montenegro MD 06/07/2025 6:20 AM Critical Care Performed by: Estephania Cortez NP Authorized by: Estephania Cortez NP CRITICAL CARE: Team: SICU BLUE Shift: PM Level of Billing: Critical Care My time spent with this patient was 90 minutes: Critical Provider Statement: I have seen and examined the patient on this day of service. I have reviewed and confirmed the history, physical exam, laboratory and radiologic data as documented in the signed ICU note. I have reviewed and discussed my treatment plan with the ICU team and other medical/railroad design consultant staff, making frequent assessments and decisions regarding this patient's complex medical care. Critical Care time was exclusive of time spent performing separately billed procedures, treating other patients, and teaching. This time was in addition to and separate from critical care provided by other practitioners in my group on this day of service. Critical Care was necessary to treat or prevent imminent or life-threatening deterioration of the following conditions: I spent time reviewing and interpreting data from bedside monitors, laboratory results, and imaging, I spent time discussing the management of this critically ill patient with consultants and the medical staff and I spent time documenting in the medical record us Estephania Cortez NP IN CLINIC/BEDSIDE O RDERABLES Final Result * XR Chest 1 View (06/06/2025 5:33 PM CDT) Anatomical Region Laterality Modality Body, Chest N/A Digital Radiogra phy 06/07/2025 10:2 6 AM CDT Impressions 06/07/2025 11:37 AM CDT The current study is compared with the prior radiograph dated 06/05/2025. 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 Right chest tube is present with side port projecting over the chest wall. Patient is status post median sternotomy with intact wires. Aortic valve replacements present. Unchanged right rib fractures with chest wall deformity and indentation. Small right apical pneumothorax. No pneumothorax on the left. In like opacities in the right midlung which is unchanged when compared to prior and in keeping with laceration. Unchanged left apical scarring. No pleural effusion. Cardiomediastinal silhouette is unchanged. Unchanged extensive soft tissue gas along the right neck, left neck, and right chest wall. Dictated by: Lamberto Castrejon M.D. The radiology attending physician has personally reviewed this study, and had reviewed and/or edited this written report and agrees with it. Electronically signed by: Camille Hdz M.D. Narrative 06/07/2025 11:37 AM CDT EXAMINATION: 1 view chest radiograph Procedure Note Camille Hdz MD - 06/07/2025 EXAMINATION: 1 view chest radiograph IMPRESSION: The current study is compared with the prior radiograph dated 06/05/2025. 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 Right chest tube is present with side port projecting over the chest wall. Patient is status post median sternotomy with intact wires. Aortic valve replacements present. Unchanged right rib fractures with chest wall deformity and indentation. Small right apical pneumothorax. No pneumothorax on the left. In like opacities in the right midlung which is unchanged when compared to prior and in keeping with laceration. Unchanged left apical scarring. No pleural effusion. Cardiomediastinal silhouette is unchanged. Unchanged extensive soft tissue gas along the right neck, left neck, and right chest wall. Dictated by: Lamberto Castrejon M.D. The radiology attending physician has personally reviewed this study, and had reviewed and/or edited this written report and agrees with it. Electronically signed by: Camille Hdz M.D. Rick Infante NP IMG XR PROCEDURES Final Result * ND INSJ NON-TUNNELED CENTRAL VENOUS CATH AGE 6 YR/> (06/06/2025 5:02 PM CDT) Narrative Miguelito Callahan MD - 06/06/2025 5:02 PM CDT Miguelito Callahan MD 06/07/2025 6:09 PM Central Line Insertion Date/Time: 06/06/2025 5:02 PM Performed by: Rick Infante NP Authorized by: Rick Infante NP [place] Protocol: RN Notified of Procedure: yes Informed consent: Risks, benefits, alternatives discussed Patient's stated name/ matches armband: Yes Allergies confirmed: yes Consent form signed, dated, timed; matches correct patient, intended procedure and site: Yes Imaging: Pertinent imaging reviewed, correctly oriented and match to patient identifiers Lab/Diag test results: Pertinent lab/diag tests reviewed and match to patient identifiers Supplies, devices and special equipment are available: yes Site/side marked: n/a Immediately prior to the procedure a time out was called: a verbal verification by the procedure participants confirmed correct patient identity, correct site/side marked and visible (if applicable); agreement on procedure to be done; and correct patient positioning Have non- routine considerations been assessed?: Yes Indications: Vascular access, central pressure monitoring and administer vasoactive medications Anesthesia (see MAR for exact dosage) Anesthesia method: Local infiltration Local anesthetic: Lidocaine 1% Patient position: Trendelenburg Skin preparation: Skin prepped with 2% chlorhexidine Provider preparation: Cap, full body drape, gloves, gown, handwashing and mask Location: right subclavian and right internal jugular. Technique: Landmarks identified Ultrasound guidance: Pre-procedure diagnostic and real-time needle guidance Catheter size: 7 Fr Needle inserted, vein idenitified then guidewire inserted easily into vein: No Number of attempts: 2 Successful placement: No Post Procedure Debrief: All guidewires, needles, sponges or other items are accounted for: yes Any special post procedure monitoring, testing or other considerations: n/a All specimens identified, labeled and matched to patient identification: n/a A right subclavian central line was first attempted. The needle was inserted using landmarks and was able to cannulate the right subclavian vein on the first attempt and the wire was easily inserted. When I tried the advance the cathter over wire resistance was met and the catheter would not advance over the wire. The procedure was aborted. Pressure was held at the site until hemostasis was achieved and an occlusive dressing was applied. The area of the right neck was then prepped and draped. The right internal jugular vein was identified with ultrasound and cannulated with the needle on the first attempt without issue. The wire was then easily advanced. The dilator was advanced over the wire without resistance. The CVC was advanced over the wire, but resistance was met and the cathter itself would not advance over the wire. Ultrasound was used and I confirmed that the wire was indeed in the right internal jugular vein as expected. The catheter was again attempted to be advanced over the wire, but resistance was again met. The procedure was then aborted. Pressure was held at the site until hemostasis was achieved. The patient's skin was friable at this site and a small tear developed. 2 interrupted sutures were placed, sterile gauze was placed over the site, and then an occlusive dressing was applied. Rick Infante NP IN CLINIC/BEDSIDE ORDER CARMELINA Final Result * POCT glucose (06/06/2025 4:57 PM CDT) [facility] Glucose, POC 183 70 - 199 mg/dL Blood 06/06/2025 4:57 PM CDT 06/06/2025 4:57 PM CDT Pineda Sorto MD LAB POCT ORDERABLES - DEV ICE Final Result Performing Organization Address [facility] Co de Phone Number [facility] [place] [address] * Calcium, ionized, whole blood (06/06/2025 2:00 PM CDT) [facility] Ca, ionized, bld 4.57 4.50 - 5.10 mg/dL Blood 06/06/2025 2:00 PM CDT 06/06/2025 2:14 PM CDT Rick Infante NP LAB BLOOD ORDERABLES Fi nal Result Performing Organization Address City/[facility] Co de Phone Number [facility] [place] [address] * eGFR (06/06/2025 2:00 PM CDT) [facility] eGFR 82 >=60 mL/min/1. 73 m2 Comment: Interpretive Data Reference Interval Normal >/= 90 mL/min/1.73m2 Mildly decreased* 60 - 89 mL/min/1.73m2 Mildly to moderately decreased 45 - 59 mL/min/1.73m2 Moderately to severely decreased 30 - 44 mL/min/1.73m2 Severely decreased 15 - 29 mL/min/1.73m2 Kidney Failure < 15 mL/min/1.73m2 *Relative to young adult level Estimated glomerular filtration rate is determined by the 2020 CKD-EPI equation recommended by the National Kidney Foundation (A Unifying Approach to GFR Estimation: Recommendations of the NKF-ASK Task Force on Reassessing the Inclusion of Race in Diagnosing Kidney Disease, JASN 202). The CKD-EPI equation should not be used for patients with unstable renal function and has not been validated in children and those over 70. Current interpretive data was last reviewed 2021. Blood 06/06/2025 2:00 PM CDT 06/06/2025 2:19 PM CDT Rick Infante NP LAB BLOOD ORDERABLES nal Result [facility] Department [place] [address] * (ABNORMAL) CBC without differential (06/06/2025 2:00 PM CDT) WBC 14.22(H) 3.80 - 9.90 K/cumm Hgb 10.1(L) 13.0 - 17.5 g/dL [facility] Hct 29.4(L) 38.9 - 50.3 % [facility] Plt 117(L) 150 - 400 K/cumm [facility] MPV 10.2 9.1 - 12.3 fL [facility] RBC 3.29(L) 4.30 - 5.80 M/cumm [facility] MCV 89.4 81.3 - 96.4 fL [facility] MCH 30.7 27.1 - 33.3 pg [facility] MCHC 34.4 32.3 - 35.7 g/dL [facility] RDW CV 15.0(H) 11.1 - 14.9 % [facility] RDW SD 49.4(H) 35.7 - 48.1 fL [facility] NRBC abs 0.00 0.00 - 0.01 K/cumm [facility] Blood 06/06/2025 2:00 PM CDT 06/06/2025 2:19 PM CDT Rick Infante NP LAB BLOOD ORDERABLES Fi nal Result Performing Organization Address [facility] Co de Phone Number [facility] Department [place] [address] * (ABNORMAL) Basic metabolic panel (06/06/2025 2:00 PM CDT) [facility] Sodium 140 135 - 145 mmol/L Potassium, pl 4.5 3.3 - 4.9 mmol/L [facility] Chloride 110 97 - 110 mmol/L [facility] CO2 18(L) 22 - 32 mmol/L [facility] Anion gap 12 2 - 15 mmol/L [facility] BUN 26(H) 6 - 25 mg/dL [facility] Creatinine 0.88 0.80 - 1.30 mg/dL [facility] Glucose 192 70 - 199 mg/dL [facility] Comment: Interpretive Data Fasting glucose >/= 126 mg/dl is diagnostic for diabetes. Fasting is defined as no caloric intake for at least 8 hours. Fasting glucose between 100 mg/dl to 125 mg/dl is diagnostic of prediabetes. In a patient with classic symptoms of hyperglycemia or hyperglycemic crisis, a random glucose >/= 200 mg/dl is diagnostic for diabetes. In the absence of unequivocal hyperglycemia, results should be confirmed by repeat testing. The classification and Diagnosis of Diabetes Diabetes Care 2021; 46: S19-S40. Current interpretive data was last revised 2022. Calcium 8.1(L) 8.5 - 10.3 mg/dL [facility] Blood 06/06/2025 2:00 PM CDT 06/06/2025 2:19 PM CDT Rick Infante NP LAB BLOOD ORDERABLES Fi nal Result Performing Organization Address [facility] de Phone Number [facility] Department [place] [address] * POCT glucose (06/06/2025 11:20 AM CDT) Glucose, POC 162 70 - 199 mg/dL Blood 06/06/2025 11:2 0 AM CDT 06/06/2025 11:20 AM CDT Pineda Sorto MD LAB POCT ORDERABLES - DEV ICE Final Result [facility] [place] [address] * Troponin I high-sensitivity (06/06/2025 7:41 AM CDT) Pathologist [facility] Trop I hs 22 <=35 ng/L Comment: Interpretive Data For further hscTnI resources including the diagnostic algorithm and an aid in interpretation, copy and paste this link: [email or web address] Current Interpretive Data last revised 2020. Blood 06/06/2025 7:41 AM CDT 06/06/2025 8:01 AM CDT Pineda Sorto MD LAB BLOOD ORDERABLES Anu l Result Performing Organization Address City/[facility]/ZIP Co de Phone Number [facility] [place] [address] * Calcium, ionized, whole blood (06/06/2025 7:41 AM CDT) Pathologist [facility] Ca, ionized, bld 4.57 4.50 - 5.10 mg/dL Blood 06/06/2025 7:41 AM CDT 06/06/2025 7:58 AM CDT Rick Infante NP LAB BLOOD ORDERABLES Fi nal Result [facility] [place] [address] * eGFR (06/06/2025 7:41 AM CDT) Pathologist [facility] eGFR 71 >=60 mL/min/1. 73 m2 Comment: Interpretive Data Reference Interval Normal >/= 90 mL/min/1.73m2 Mildly decreased* 60 - 89 mL/min/1.73m2 Mildly to moderately decreased 45 - 59 mL/min/1.73m2 Moderately to severely decreased 30 - 44 mL/min/1.73m2 Severely decreased 15 - 29 mL/min/1.73m2 Kidney Failure < 15 mL/min/1.73m2 *Relative to young adult level Estimated glomerular filtration rate is determined by the 2020 CKD-EPI equation recommended by the National Kidney Foundation (A Unifying Approach to GFR Estimation: Recommendations of the NKF-ASK Task Force on Reassessing the Inclusion of Race in Diagnosing Kidney Disease, JASN 2020). The CKD-EPI equation should not be used for patients with unstable renal function and has not been validated in children and those over 70. Current interpretive data was last reviewed 2021. Blood 06/06/2025 7:41 AM CDT 06/06/2025 8:01 AM CDT Rick Infante NP LAB BLOOD ORDERABLES nal Result [facility] Department [place] [address] * (ABNORMAL) CBC without differential (06/06/2025 7:41 AM CDT) [facility] WBC 15.01(H) 3.80 - 9.90 K/cumm Hgb 9.9(L) 13.0 - 17.5 g/dL [facility] Hct 28.8(L) 38.9 - 50.3 % [facility] Plt 133(L) 150 - 400 K/cumm [facility] MPV 10.6 9.1 - 12.3 fL [facility] RBC 3.21(L) 4.30 - 5.80 M/cumm [facility] MCV 89.7 81.3 - 96.4 fL [facility] MCH 30.8 27.1 - 33.3 pg [facility] MCHC 34.4 32.3 - 35.7 g/dL [facility] RDW CV 14.9 11.1 - 14.9 % [facility] RDW SD 48.1 35.7 - 48.1 fL [facility] NRBC abs 0.00 0.00 - 0.01 K/cumm [facility] Blood 06/06/2025 7:41 AM CDT 06/06/2025 8:01 AM CDT Rick Infante NP LAB BLOOD ORDERABLES Fi nal Result [facility] Department [place] [address] * Magnesium (06/06/2025 7:41 AM CDT) [facility] Magnesium 1.5 1.4 - 2.5 mg/dL Blood 06/06/2025 7:41 AM CDT 06/06/2025 8:01 AM CDT Rick Infante NP LAB BLOOD ORDERABLES Fi nal Result Performing Organization Address City/[facility]/ZIP Co de Phone Number [facility] [place] [address] * (ABNORMAL) Basic metabolic panel (06/06/2025 7:41 AM CDT) [facility] Sodium 139 135 - 145 mmol/L Potassium, pl 4.4 3.3 - 4.9 mmol/L [facility] Chloride 110 97 - 110 mmol/L [facility] CO2 20(L) 22 - 32 mmol/L [facility] Anion gap 9 2 - 15 mmol/L [facility] BUN 28(H) 6 - 25 mg/dL [facility] Creatinine 1.01 0.80 - 1.30 mg/dL [facility] Glucose 160 70 - 199 mg/dL [facility] Comment: Interpretive Data Fasting glucose >/= 126 mg/dl is diagnostic for diabetes. Fasting is defined as no caloric intake for at least 8 hours. Fasting glucose between 100 mg/dl to 125 mg/dl is diagnostic of prediabetes. In a patient with classic symptoms of hyperglycemia or hyperglycemic crisis, a random glucose >/= 200 mg/dl is diagnostic for diabetes. In the absence of unequivocal hyperglycemia, results should be confirmed by repeat testing. The classification and Diagnosis of Diabetes Diabetes Care 2021; 46: S19-S40. Current interpretive data was last revised 2022. Calcium 8.1(L) 8.5 - 10.3 mg/dL [facility] Blood 06/06/2025 7:41 AM CDT 06/06/2025 8:01 AM CDT us Rick Infante NP LAB BLOOD ORDERABLES [facility] Result [facility] Department [place] [address] * ECG 12 lead (06/06/2025 7:39 AM CDT) Ventricular Rate EKG/Min 67 BPM [facility] Atrial Rate 67 BPM [facility] ND-Interval (MSEC) 172 ms [facility] QRS-Interval (MSEC) 116 ms [facility] QT-Interval (MSEC) 426 ms [facility] QTc 450 ms [facility] P [place] 29 degrees [facility] R [place] 48 degrees [facility] T [place] -41 degrees [facility] Diagnosis Sinus rhythm with occasional Premature ventricular complexes Low voltage QRS Incomplete right bundle branch block Cannot rule out 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) Abnormal ECG When compared with ECG of 05-JUN-2025 11:11, (unconfirmed) Significant changes have occurred Confirmed by Everette Ortega MD ([id number]) on 06/09/2025 1:10:13 AM [facility] 06/06/2025 7:39 AM CDT 06/09/2025 1:10 AM CDT us Pineda Sorto MD ECG ORDERABLES Final Res ult [facility] * POCT glucose (06/06/2025 7:12 AM CDT) Glucose, POC 150 70 - 199 mg/dL Blood 06/06/2025 7:12 AM CDT 06/06/2025 7:12 AM CDT Result [facility] Pineda Sorto MD LAB POCT ORDERABLES - DEV ICE Final Result [facility] Department [place] [address] * Critical Care (06/06/2025 7:00 AM CDT) Narrative Miguelito Callahan MD - 06/06/2025 7:00 AM CDT Miguelito Callahan MD 06/07/2025 6:09 PM Critical Care Performed by: Rick Infante NP Authorized by: Rick Infante NP CRITICAL CARE: Team: SICU BLUE Shift: AM Level of Billing: Critical Care My time spent with this patient was 125 minutes: Critical Provider Statement: I have seen and examined the patient on this day of service. I have reviewed and confirmed the history, physical exam, laboratory and radiologic data as documented in the signed ICU note. I have reviewed and discussed my treatment plan with the ICU team and other medical/railroad design consultant staff, making frequent assessments and decisions regarding this patient's complex medical care. Critical Care time was exclusive of time spent performing separately billed procedures, treating other patients, and teaching. This time was in addition to and separate from critical care provided by other practitioners in my group on this day of service. Critical Care was necessary to treat or prevent imminent or life-threatening deterioration of the following conditions: I spent time reviewing and interpreting data from bedside monitors, laboratory results, and imaging, I spent time discussing the management of this critically ill patient with consultants and the medical staff and I spent time documenting in the medical record Rick Infante NP IN CLINIC/BEDSIDE ORDER CARMELINA Final Result * Transfuse RBC (06/06/2025 5:19 AM CDT) Blood Estephania Cortez NP BLOOD TRANSFUSION O RDERABLES Final Result Performing Organization Address [facility] Co de Phone Number [facility] [place] [address] * POCT glucose (06/06/2025 3:09 AM CDT) Glucose, POC 196 70 - 199 mg/dL Blood 06/06/2025 3:09 AM CDT 06/06/2025 3:09 AM CDT Pineda Sorto MD LAB POCT ORDERABLES - DEV ICE Final Result Performing Organization Address [facility] [place] [address] * Prepare RBC: 1 Units (06/06/2025 1:24 AM CDT) Product code [id number] Unit Number [id number] [facility] Product Blood Type OPOS [facility] Dispense Status PRESUMED TRANSFUSED [facility] Blood 06/06/2025 1:24 AM CDT 06/06/2025 1:25 AM CDT Narrative [facility] - 06/06/2025 4:00 PM CDT Other indication->active bleeding from chest tube Are special requirements needed? (All products are leukoreduced and CMV- safe)- >No Date required:-[id number] LRRBC # of [id number] Reasons:-Other (specify)} Estephania Cortez NP BLOOD BANK PRODUCT ORDERABLES Final Result Performing Organization Address [facility] Co de Phone Number [facility] [place] [address] * POCT glucose (06/06/2025 12:46 AM CDT) [facility] Glucose, POC 198 70 - 199 mg/dL Blood 06/06/2025 12:4 6 AM CDT 06/06/2025 12:46 AM CDT Pineda Sorto MD LAB POCT ORDERABLES - DEV ICE Final Result Performing Organization Address City/[facility]/ZIP Co de Phone Number [facility] [place] [address] * (ABNORMAL) CBC without differential (06/06/2025 12:36 AM CDT) [facility] WBC 15.13(H) 3.80 - 9.90 K/cumm Hgb 8.9(L) 13.0 - 17.5 g/dL [facility] Hct 25.6(L) 38.9 - 50.3 % [facility] Plt 145(L) 150 - 400 K/cumm [facility] MPV 10.9 9.1 - 12.3 fL [facility] RBC 2.84(L) 4.30 - 5.80 M/cumm [facility] MCV 90.1 81.3 - 96.4 fL [facility] MCH 31.3 27.1 - 33.3 pg [facility] MCHC 34.8 32.3 - 35.7 g/dL [facility] RDW CV 15.1(H) 11.1 - 14.9 % [facility] RDW SD 49.3(H) 35.7 - 48.1 fL [facility] NRBC abs 0.00 0.00 - 0.01 K/cumm [facility] Blood 06/06/2025 12:3 6 AM CDT 06/06/2025 12:44 AM CDT Rick Infante NP LAB BLOOD ORDERABLES Fi nal Result Performing Organization Address City/[facility]/ZIP Co de Phone Number [facility] [place] [employer] [address] * Potassium (06/06/2025 12:36 AM CDT) Potassium, pl 4.9 3.3 - 4.9 mmol/L Blood 06/06/2025 12:3 6 AM CDT 06/06/2025 12:44 AM CDT Narrative [facility] - 06/06/2025 1:05 AM CDT Provider to discontinue after two normal results. Rick Infante NP LAB BLOOD ORDERABLES Fi nal Result [facility] Department [place] [address] * XR Chest 1 View (06/05/2025 10:27 PM CDT) Anatomical Region Laterality Modality Body, Chest N/A Computed Radiogr aphy 06/06/2025 7:53 AM CDT Impressions 06/06/2025 7:53 AM CDT Comparison is made to radiograph of 06/05/2025 at 9:[address] of 06/05/2025 at 7:18 AM Anteroposterior chest radiograph demonstrates no subtle change in the focal opacity in the right midlung likely due to lung contusion given history of trauma. There is a small right apical pneumothorax. No left-sided pneumothorax or pleural effusion. Multiple right lateral rib fractures with chest wall deformity and indentation again noted. Extensive subcutaneous emphysema along the right lateral chest wall extending to the neck noted. A very small pneumomediastinum is also present at the level of thoracic inlet. The left lung is clear. The heart size is normal. The right chest tube has been retracted with its side port projecting over the right lateral chest wall and its tip over the right midlung just above the hilum. Median sternotomy wires, coronary artery bypass graft surgical clips, and aortic valve replacement noted. The tips of the cardiac pacer/defibrillator leads project of the right atrium and right ventricle apex. Electronically signed by: Hussain Ziegler M.D. Narrative 06/06/2025 7:53 AM CDT EXAMINATION: 1 view chest radiograph Procedure Note Hussain Ziegler MD - 06/06/2025 EXAMINATION: 1 view chest radiograph IMPRESSION: Comparison is made to radiograph of 06/05/2025 at 9:[address] of 06/05/2025 at 7:18 AM Anteroposterior chest radiograph demonstrates no subtle change in the focal opacity in the right midlung likely due to lung contusion given history of trauma. There is a small right apical pneumothorax. No left-sided pneumothorax or pleural effusion. Multiple right lateral rib fractures with chest wall deformity and indentation again noted. Extensive subcutaneous emphysema along the right lateral chest wall extending to the neck noted. A very small pneumomediastinum is also present at the level of thoracic inlet. The left lung is clear. The heart size is normal. The right chest tube has been retracted with its side port projecting over the right lateral chest wall and its tip over the right midlung just above the hilum. Median sternotomy wires, coronary artery bypass graft surgical clips, and aortic valve replacement noted. The tips of the cardiac pacer/defibrillator leads project of the right atrium and right ventricle apex. Electronically signed by: Hussain Ziegler M.D. Estephania Cortez [employer]AL SCRAP WORK[employer] IMG XR PROCEDURES F inal Result * Lactate, whole blood (06/05/2025 9:45 PM CDT) Pathologist [facility] Lactate, bld 1.8 0.7 - 2.0 mmol/L Blood 06/05/2025 9:45 PM CDT 06/05/2025 9:51 PM CDT Estephania Cortez NP LAB BLOOD ORDERABLE S Final Result [facility] Department of Laboratories [place], [place] [id number] * (ABNORMAL) POCT glucose (06/05/2025 8:30 PM CDT) Pathologist [facility] Glucose, POC 229(H) 70 - 199 mg/dL Comment:Glu2: RN/ Notified Glucose comment 1 Glu2: RN/ Notified [facility] Blood 06/05/2025 8:30 PM CDT 06/05/2025 8:30 PM CDT us Pineda Sorto MD LAB POCT ORDERABLES - DEV ICE Final Result [facility] Department [place] [address] * ND ARTL CATHJ/CANNULJ MNTR/TRANSFUSION SPX PRQ (06/05/2025 7:49 PM CDT) Narrative Miguelito Callahan MD - 06/05/2025 7:49 PM CDT Miguelito Callahan MD 06/06/2025 8:26 AM Arterial Line Insertion Date/Time: 06/05/2025 7:49 PM Performed by: Rick Infante NP Authorized by: Rick Infante NP [place] Protocol: RN Notified of Procedure: yes Informed consent: Risks, benefits, alternatives discussed and patient/safety representative/guardian agrees and accepts Patient's stated name/ matches armband: Yes Allergies confirmed: yes Consent form signed, dated, timed; matches correct patient, intended procedure and site: Yes Imaging: Pertinent imaging reviewed, correctly oriented and match to patient identifiers Lab/Diag test results: Pertinent lab/diag tests reviewed and match to patient identifiers Supplies, devices and special equipment are available: yes Site/side marked: n/a Immediately prior to the procedure a time out was called: a verbal verification by the procedure participants confirmed correct patient identity, correct site/side marked and visible (if applicable); agreement on procedure to be done; and correct patient positioning Indications: multiple ABGs and hemodynamic monitoring Location: Right femoral Anesthesia: Local infiltration Local anesthetic: Lidocaine 1% Patient skin preparation: chlorhexidine Ultrasound guidance: Pre-procedure diagnostic and real-time needle guidance Patient preparation: Cap, gloves, gown, handwashing, mask, partial body drape, towels and sterile probe cover Single percutaneous needle puncture: Yes Seldinger technique used: Yes Number of attempts: 2 Placement confirmed with arterial waveform: Yes Post-procedure: Line sutured and dressing applied Post-procedure CMS: Unchanged Complications: no complications noted during insertion Post Procedure Debrief: All guidewires, needles, sponges or other items are accounted for: yes Any special post procedure monitoring, testing or other considerations: yes (enter/request order) All specimens identified, labeled and matched to patient identification: yes Responsible constitution party for transporting specimen(s) to lab determined: yes Rick Infante NP IV THERAPY ORDERABLES F inal Result * eGFR (06/05/2025 7:26 PM CDT) eGFR 75 >=60 mL/min/1. 73 m2 Comment: Interpretive Data Reference Interval Normal >/= 90 mL/min/1.73m2 Mildly decreased* 60 - 89 mL/min/1.73m2 Mildly to moderately decreased 45 - 59 mL/min/1.73m2 Moderately to severely decreased 30 - 44 mL/min/1.73m2 Severely decreased 15 - 29 mL/min/1.73m2 Kidney Failure < 15 mL/min/1.73m2 *Relative to young adult level Estimated glomerular filtration rate is determined by the 2020 CKD-EPI equation recommended by the National Kidney Foundation (A Unifying Approach to GFR Estimation: Recommendations of the NKF-ASK Task Force on Reassessing the Inclusion of Race in Diagnosing Kidney Disease, JASN 2020). The CKD-EPI equation should not be used for patients with unstable renal function and has not been validated in children and those over 70. Current interpretive data was last reviewed 2021. Blood 06/05/2025 7:26 PM CDT 06/05/2025 7:39 PM CDT Rick Infante NP LAB BLOOD ORDERABLES Fi nal Result [facility] Department [place] [address] * (ABNORMAL) Calcium, ionized (06/05/2025 7:26 PM CDT) Calcium, Ionized 4.25(L) 4.50 - 5.10 mg/dL Blood 06/05/2025 7:26 PM CDT 06/05/2025 7:32 PM CDT Rick Infante NP LAB BLOOD ORDERABLES Fi nal Result Performing Organization Address [facility] de Phone Number [facility] Department [place] [address] * (ABNORMAL) CBC without differential (06/05/2025 7:26 PM CDT) WBC 13.69(H) 3.80 - 9.90 K/cumm Hgb 9.9(L) 13.0 - 17.5 g/dL [facility] Hct 27.5(L) 38.9 - 50.3 % [facility] Plt 143(L) 150 - 400 K/cumm [facility] MPV 10.7 9.1 - 12.3 fL [facility] RBC 3.09(L) 4.30 - 5.80 M/cumm [facility] MCV 89.0 81.3 - 96.4 fL [facility] MCH 32.0 27.1 - 33.3 pg [facility] MCHC 36.0(H) 32.3 - 35.7 g/dL [facility] RDW CV 15.0(H) 11.1 - 14.9 % [facility] [facility] RDW SD 49.1(H) 35.7 - 48.1 fL [facility] NRBC abs 0.00 0.00 - 0.01 K/cumm [facility] Blood 06/05/2025 7:26 PM CDT 06/05/2025 7:32 PM CDT Rick Infante NP LAB BLOOD ORDERABLES Fi nal Result Performing Organization Address [facility] Co de Phone Number [facility] [place] [address] * (ABNORMAL) Potassium (06/05/2025 7:26 PM CDT) Potassium, pl 5.1(H) 3.3 - 4.9 mmol/L Blood 06/05/2025 7:26 PM CDT 06/05/2025 7:32 PM CDT Narrative [facility] - 06/05/2025 8:11 PM CDT Provider to discontinue after two normal results. Rick Infante GENERAL SCRAP WORKER LAB BLOOD ORDERABLES Fi nal Result Performing Organization Address City/[facility] Co de Phone Number [facility] [place] [address] * Phosphorus (06/05/2025 7:26 PM CDT) Pathologist [facility] Phosphorus, pl 3.8 2.3 - 4.5 mg/dL Blood 06/05/2025 7:26 PM CDT 06/05/2025 7:39 PM CDT Rick Infante NP LAB BLOOD ORDERABLES Fi nal Result Performing Organization Address [facility] de Phone Number [facility] [place] [address] * Magnesium (06/05/2025 7:26 PM CDT) [facility] Magnesium 1.4 1.4 - 2.5 mg/dL Blood 06/05/2025 7:26 PM CDT 06/05/2025 7:39 PM CDT Rick Infante GENERAL SCRAP WORKER LAB BLOOD ORDERABLES Fi nal Result Performing Organization Address [facility] de Phone Number [facility] [place] [address] * (ABNORMAL) Hemoglobin A1c (06/05/2025 7:26 PM CDT) Hgb A1C 6.4(H) 4.0 - 5.6 % Estimated Average Glucose 137 mg/dL [facility] Comment: The ADA recommends reporting an estimated Average Glucose (eAG) with all Hemoglobin A1c results using the equation derived from a study of 507 normal and diabetic adults. Minority populations were underrepresented and children were not included. (Diabetes Care 2020; 43(S1): S66-S76). The eAG is not equivalent to a fasting glucose. Blood 06/05/2025 7:26 PM CDT 06/05/2025 7:39 PM CDT us Rick Infante NP LAB BLOOD ORDERABLES nal Result [facility] [place] [address] * (ABNORMAL) Lipid panel (06/05/2025 7:26 PM CDT) Cholesterol 69 30 - 199 mg/dL Comment: Interpretive Data Ages < or = 19 years Acceptable: <170 mg/dL Borderline high: 170-199 mg/dL High: >or= 200 mg/dL Ages > or = 20 years Desirable: <200 mg/dL Borderline high: 200-239 mg/dL High: >or= 240 mg/dL Literature References: 1. Expert Panel on Integrated Guidelines for Cardiovascular Health and Risk Reduction in Children and Adolescents. Pediatrics 2011;128:S213 2. NCEP Expert Panel. Circulation 2004;110:227 Current Interpretive Data was last revised on 2018. Triglycerides 56 <=149 mg/dL [facility] Comment: Interpretive Data Ages < or = 9 years Acceptable: <75 mg/dL Borderline high: 75-99 mg/dL High: >or= 100 mg/dL Ages 10 to 20 years Acceptable: <90 mg/dL Borderline high: 90-129 mg/dL High: >or= 130 mg/dL Ages > or = 20 years Desirable: <150 mg/dL Borderline high: 150-199 mg/dL High: 200-499 mg/dL Very high: >or= 499 mg/dL Literature References: 1. Expert Panel on Integrated Guidelines for Cardiovascular Health and Risk Reduction in Children and Adolescents. Pediatrics 2011;128:S213 2. NCEP Expert Panel. Circulation 2004;110:227 Current Interpretive Data was last revised on 2018. HDL 39(L) >=40 mg/dL [facility] Comment: Interpretive Data Ages < or = 19 years Acceptable: >45 mg/dL Borderline low: 40-45 mg/dL Low: <40 mg/dL Ages > or = 20 years Desirable: >or= 60 mg/dL Low: <40 mg/dL Literature References: 1. Expert Panel on Integrated Guidelines for Cardiovascular Health and Risk Reduction in Children and Adolescents. Pediatrics 2011;128:S213 2. NCEP Expert Panel. Circulation 2004;110:227 Current Interpretive Data was last revised on 2018. LDL, calculated 16 <=129 mg/dL [facility] Comment: Interpretive Data Ages < or = 19 years Acceptable: <110 mg/dL Borderline high: 110-129 mg/dL High: >or= 130 mg/dL Ages > or = 20 years Optimal: <100 mg/dL Near optimal: 100-129 mg/dL Borderline high: 130-159 mg/dL High: >160 mg/dL Calculated using the Ez LDL-C estimating equation. This equation was implemented on 2024. Prior to this date LDL-C was estimated using the Friedewald equation. Literature References: 1. Expert Panel on Integrated Guidelines for Cardiovascular Health and Risk Reduction in Children and Adolescents. Pediatrics 2011;128:S213 2. NCEP Expert Panel. Circulation 2004;110:227 3. Ez Cruz et al. OLEGARIO Cardiol. 2019February 11;5(5):540-548. doi: [email or web address] Current Interpretive Data was last revised on 2024. Non-HDL Cholesterol 30 mg/dL [facility] Comment: Interpretive Data Ages < or = 19 years Acceptable: <120 mg/dL Borderline high: 120-144 mg/dL High: >145 mg/dL Ages > or = 20 years When triglycerides are >200 mg/dL, Non-HDL cholesterol is a secondary target of therapy with treatment goals that are 30 mg/dL greater than the LDL cholesterol target. Literature References: 1. Expert Panel on Integrated Guidelines for Cardiovascular Health and Risk Reduction in Children and Adolescents. Pediatrics 2011;128:S213 2. NCEP Expert Panel. Circulation 2004;110:227 Current Interpretive Data was last revised on 2018. Chol/HDL ratio 2 [facility] Blood 06/05/2025 7:26 PM CDT 06/05/2025 7:32 PM CDT Pineda Sorto MD LAB BLOOD ORDERABLES Anu l Result Performing Organization Address City/[facility]/ZIP Co de Phone Number [facility] [place] [address] * (ABNORMAL) Basic metabolic panel (06/05/2025 7:26 PM CDT) [facility] Sodium 139 135 - 145 mmol/L Potassium, pl 5.0(H) 3.3 - 4.9 mmol/L [facility] Chloride 109 97 - 110 mmol/L [facility] CO2 20(L) 22 - 32 mmol/L [facility] Anion gap 10 2 - 15 mmol/L [facility] BUN 26(H) 6 - 25 mg/dL [facility] Creatinine 0.97 0.80 - 1.30 mg/dL [facility] Glucose 214(H) 70 - 199 mg/dL [facility] Comment: Interpretive Data Fasting glucose >/= 126 mg/dl is diagnostic for diabetes. Fasting is defined as no caloric intake for at least 8 hours. Fasting glucose between 100 mg/dl to 125 mg/dl is diagnostic of prediabetes. In a patient with classic symptoms of hyperglycemia or hyperglycemic crisis, a random glucose >/= 200 mg/dl is diagnostic for diabetes. In the absence of unequivocal hyperglycemia, results should be confirmed by repeat testing. The classification and Diagnosis of Diabetes Diabetes Care 2021; 46: S19-S40. Current interpretive data was last revised 2022. Calcium 8.1(L) 8.5 - 10.3 mg/dL [facility] Blood 06/05/2025 7:26 PM CDT 06/05/2025 7:39 PM CDT Rick Infante NP LAB BLOOD ORDERABLES Fi nal Result Performing Organization Address City/[facility]/ZIP Co de Phone Number [facility] [place] [address] * Critical Care (06/05/2025 6:56 PM CDT) Narrative Joseph Montenegro MD - 06/05/2025 6:56 PM CDT Joseph Montenegro MD 06/06/2025 8:13 PM Critical Care Performed by: Estephania Cortez NP Authorized by: Estephania Cortez NP CRITICAL CARE: Team: SICU BLUE Shift: PM Level of Billing: Critical Care My time spent with this patient was 120 minutes: Critical Provider Statement: I have seen and examined the patient on this day of service. I have reviewed and confirmed the history, physical exam, laboratory and radiologic data as documented in the signed ICU note. I have reviewed and discussed my treatment plan with the ICU team and other medical/railroad design consultant staff, making frequent assessments and decisions regarding this patient's complex medical care. Critical Care time was exclusive of time spent performing separately billed procedures, treating other patients, and teaching. This time was in addition to and separate from critical care provided by other practitioners in my group on this day of service. Critical Care was necessary to treat or prevent imminent or life-threatening deterioration of the following conditions: I spent time reviewing and interpreting data from bedside monitors, laboratory results, and imaging, I spent time discussing the management of this critically ill patient with consultants and the medical staff and I spent time documenting in the medical record Estephania Cortez NP IN CLINIC/BEDSIDE O RDERABLES Final Result * Potassium (06/05/2025 5:20 PM CDT) Potassium, pl 4.9 3.3 - 4.9 mmol/L Blood 06/05/2025 5:20 PM CDT 06/05/2025 5:41 PM CDT Narrative [facility] - 06/05/2025 6:03 PM CDT Provider to discontinue after two normal results. Rick Infante NP LAB BLOOD ORDERABLES Fi nal Result [facility] [place] [address] * Critical Care (06/05/2025 5:17 PM CDT) Narrative Miguelito Callahan MD - 06/05/2025 5:17 PM CDT Miguelito Callahan MD 06/06/2025 8:26 AM Critical Care Performed by: Rick Infante NP Authorized by: Rick Infante NP CRITICAL CARE: Team: SICU BLUE Shift: AM Level of Billing: Critical Care My time spent with this patient was 124 minutes: Critical Provider Statement: I have seen and examined the patient on this day of service. I have reviewed and confirmed the history, physical exam, laboratory and radiologic data as documented in the signed ICU note. I have reviewed and discussed my treatment plan with the ICU team and other medical/railroad design consultant staff, making frequent assessments and decisions regarding this patient's complex medical care. Critical Care time was exclusive of time spent performing separately billed procedures, treating other patients, and teaching. This time was in addition to and separate from critical care provided by other practitioners in my group on this day of service. Critical Care was necessary to treat or prevent imminent or life-threatening deterioration of the following conditions: I spent time reviewing and interpreting data from bedside monitors, laboratory results, and imaging, I spent time discussing the management of this critically ill patient with consultants and the medical staff and I spent time documenting in the medical record us Rick Infante NP IN CLINIC/BEDSIDE ORDER CARMELINA Final Result * POCT glucose (06/05/2025 4:04 PM CDT) Glucose, POC 199 70 - 199 mg/dL Blood 06/05/2025 4:04 PM CDT 06/05/2025 4:04 PM CDT us Pineda Sorto MD LAB POCT ORDERABLES - DEV ICE Final Result [facility] [place] [address] * TRANSTHORACIC ECHO (TTE) COMPLETE W DOPPLER/CF W CONTRAST (06/05/2025 3:14 PM CDT) EF Mod BP 35 % CONS SCIMAGE Anatomical Region Laterality Modality Ultrasound 06/05/2025 2:29 PM CDT Narrative 06/05/2025 3:45 PM CDT [facility] [place] [address] Transthoracic Echocardiographic Report Patient Name: ZULAY MACIAS L : 1935 (89y 4m) Sex: M Study Date: 06/05/2025 02:29:42 PM Ht(Inch): 65 Wt(Lb): 119.93 BSA: 1.58 Supply Assistant: HERMINIO Hinkle RDCS Location: [id number] Order Provider: CLEMENTE SERRANO Heart Rate: 76 BMI: 19.96 BP: 84 / 73 Ref Provider: CLEMENTE SERRANO PROCEDURES: Echocardiographic Report: Transthoracic complete echo with strain imaging and contrast, 2D, spectral and tissue Doppler, color flow Doppler, M-mode. Contrast: Contrast Enhancement was Employed: Due to suboptimal image quality with inadequate visualization of at least 2 of 16 LV wall segments in any view after initial imaging. Perflutren contrast was administered using the volume necessary to obtain adequate images. 0.9 ml Optison Administered, (2.1 ml wasted). Technically difficult study due to: Poor acoustic windows. INDICATIONS: Chest pain. CONCLUSIONS: 1. Mildly dilated left ventricle based on volume index. Eccentric LV hypertrophy. Moderately depressed left ventricular systolic function. The Ejection Fraction (Mak's) is measured at 35 %. Grade I diastolic dysfunction (normal LA pressure). The average global longitudinal strain is abnormal. 2. There is akinesis of the mid to apical anterolateral wall. There is akinesis of the entire inferolateral wall. There is akinesis of the entire inferior wall. There is akinesis of the mid to apical inferoseptal wall. There is akinesis of the apical cap. 3. Normal right ventricular size. Normal right ventricular systolic function. 4. No aortic regurgitation. The mean transaortic gradient is 8 mmHg. 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 5. Normal pericardium without pericardial effusion. 6. Normal aortic root. 7. IVC is normal in size. 8. Unable to determine PASP due to inadequate TR jet. ATTESTATION: I have personally reviewed and interpreted this study without fellow or resident. - DISCLAIMER: The study images and the final report will be retained in the patient chart by the Echo Laboratory for the legally required time period. This chart constitutes the legal record of any testing performed. FINDINGS: Left Ventricle: Mildly dilated left ventricle based on volume index. Eccentric LV hypertrophy. Moderately depressed left ventricular systolic function. The Ejection Fraction (Mak's) is measured at 35 %. Grade I diastolic dysfunction (normal LA pressure). The average global longitudinal strain is abnormal. The LV global strain is: -10.8 %. Resting Segmental Wall Motion Analysis: Total wall motion score is 3.00. There is akinesis of the mid to apical anterolateral wall. There is akinesis of the entire inferolateral wall. There is akinesis of the entire inferior wall. There is akinesis of the mid to apical inferoseptal wall. There is akinesis of the apical cap. Right Ventricle: Normal right ventricular size. Normal right ventricular systolic function. Left Atrium: The left atrium is normal in size. Right Atrium: The right atrium is normal in size. Mitral Valve: Normal mitral valve structure. No mitral regurgitation. No stenosis present. Aortic Valve: No aortic regurgitation. No aortic valve stenosis. The mean transaortic gradient is 8 mmHg. The aortic valve area by the continuity equation (using VTI) is 0.97 cm2. Aortic valve dimensionless index is 0.36. 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 Tricuspid Valve: Normal tricuspid valve structure. No tricuspid regurgitation. No tricuspid valve stenosis. Pulmonic Valve: Normal pulmonic valve structure. No pulmonic regurgitation. No pulmonic valve stenosis present. Pericardium: Normal pericardium without pericardial effusion. Aorta: Normal aortic root. IVC: IVC is normal in size. PASP: Unable to determine PASP due to inadequate TR jet. MEASUREMENTS: 2D/MM Value Range Doppler Value Range LVIDd 2D 4.41 cm [ 4.20 - 5.80 ] AV Peak Kolton 1.8 m/s [ 1.0 - 1.7 ] IVSd 2D 0.79 cm [ 0.60 - 1.00 ] AV Peak PG 12.96 mmHg LVPWd 2D 0.82 cm [ 0.60 - 1.00 ] AV Mean PG 8 mmHg LV Thickness Ratio 1.0 AV VTI 41.4 cm LV Mass 2D 113.50 g LVOT Peak [place] 0.6 m/s [ 0.7 - 1.1 ] LV Mass Index 2D 71.86 g/m2 LVOT Peak PG 1.44 mmHg RWT 0.37 LVOT Mean PG 1 mmHg EDV Mod BP 135.00 ml [ 62.00 - 150.00 ] LVOT VTI 15.0 cm LV EDV Index 85.47 ml/m2 LVOT Diam 1.85 cm ESV Mod BP 87.70 ml [ 21.00 - 61.00 ] WOO VTI 0.97 cm2 EF Mod BP 35 % [ 52 - 72 ] LVOT/AV VTI 0.36 - Dimensionless index (DVI) LV GLS -10.8 % [ -25.0 - -18.0 ] MV E Peak Kolton 0.5 m/s [ 0.6 - 1.3 ] LA Length 4C 5.87 cm MV A Peak Kol[place] 0.7 m/s [ 1.0 - 1.2 ] LA Length 2C 5.25 cm MV E/A 0.7 ratio [ 0.8 - 1.5 ] LA Volume BP 36.06 ml MV Decel Time 233.52 msec [ 104.00 - 258.00 ] LA Volume Index 22.83 ml/m2 [ 16.00 - 34.00 ] Med E` Kolton 3.1 cm/sec [ 8.0 - 25.0 ] RV Base Dimen 2D 3.2 cm [ 2.5 - 4.2 ] Lat E` Kolton 5.0 cm/sec [ 10.0 - 25.0 ] TAPSE 0.73 cm [ 1.71 - 5.00 ] Average E/E` 12.35 RA Volume 29.16 ml RV S` 5.25 cm/sec RA Volume Index 18.46 ml/m2 PV Peak Kolton 0.7 m/s [ 0.4 - 0.8 ] Asc Ao Diam 2D 2.75 cm PV Peak PG 1.96 mmHg Asc Ao Index 1.74 cm/m2 Electronically Signed By: Everette Ortega MD 06/05/2025 3:44:37 PM CDT Procedure Note Everette Ortega MD - 06/05/2025 [facility] [place] [address] Transthoracic Echocardiographic Report Patient Name: ZULAY MACIAS L : 1935 (89y 4m) Sex: M Study Date: 06/05/2025 02:29:42 PM Ht(Inch): 65 Wt(Lb): 119.93 BSA: 1.58 Supply Assistant: Giovanna Fisher [facility] Location: [id number] Order Provider:CLEMENTE SERRANO Heart Rate: 76 BMI: 19.96 BP: 84 / 73 Ref Provider: CLEMENTE SERRANO PROCEDURES: Echocardiographic Report: Transthoracic complete echo with strain imagingand contrast, 2D, spectral and tissue Doppler, color flow Doppler, M-mode. Contrast: Contrast Enhancement was Employed: Due to suboptimal imagequality with inadequate visualization of at least 2 of 16 LV wall segments in any viewafter initial imaging. Perflutren contrast was administered using the volume necessaryto obtain adequate images. 0.9 ml Optison Administered, (2.1 ml wasted). Technically difficult study due to: Poor acoustic windows. INDICATIONS: Chest pain. CONCLUSIONS: 1. Mildly dilated left ventricle based on volume index. Eccentric LVhypertrophy. Moderately depressed left ventricular systolic function. The EjectionFraction (Mak's) is measured at 35 %. Grade I diastolic dysfunction (normal LApressure). The average global longitudinal strain is abnormal. 2. There is akinesis of the mid to apical anterolateral wall. There isakinesis of the entire inferolateral wall. There is akinesis of the entire inferior wall.There is akinesis of the mid to apical inferoseptal wall. There is akinesis of theapical cap. 3. Normal right ventricular size. Normal right ventricular systolicfunction. 4. No aortic regurgitation. The mean transaortic gradient is 8 mmHg. 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 5. Normal pericardium without pericardial effusion. 6. Normal aortic root. 7. IVC is normal in size. 8. Unable to determine PASP due to inadequate TR jet. ATTESTATION: I have personally reviewed and interpreted this study without fellow orresident. - DISCLAIMER: The study images and the final report will be retained in the patientchart by the Echo Laboratory for the legally required time period. This chart constitutesthe legal record of any testing performed. FINDINGS: Left Ventricle: Mildly dilated left ventricle based on volume index.Eccentric LV hypertrophy. Moderately depressed left ventricular systolic function. TheEjection Fraction (Mak's) is measured at 35 %. Grade I diastolic dysfunction(normal LA pressure). The average global longitudinal strain is abnormal. The LVglobal strain is: -10.8 %. Resting Segmental Wall Motion Analysis: Total wall motion score is 3.00.There is akinesis of the mid to apical anterolateral wall. There is akinesis of theentire inferolateral wall. There is akinesis of the entire inferior wall. Thereis akinesis of the mid to apical inferoseptal wall. There is akinesis of the apicalcap. Right Ventricle: Normal right ventricular size. Normal right ventricularsystolic function. Left Atrium: The left atrium is normal in size. Right Atrium: The right atrium is normal in size. Mitral Valve: Normal mitral valve structure. No mitral regurgitation. Nostenosis present. Aortic Valve: No aortic regurgitation. No aortic valve stenosis. The meantransaortic gradient is 8 mmHg. The aortic valve area by the continuity equation(using VTI) is 0.97 cm2. Aortic valve dimensionless index is 0.36. A bioprosthetic valve ispresent in the aortic position. Tricuspid Valve: Normal tricuspid valve structure. No tricuspidregurgitation. No tricuspid valve stenosis. Pulmonic Valve: Normal pulmonic valve structure. No pulmonicregurgitation. No pulmonic valve stenosis present. Pericardium: Normal pericardium without pericardial effusion. Aorta: Normal aortic root. IVC: IVC is normal in size. PASP: Unable to determine PASP due to inadequate TR jet. MEASUREMENTS: 2D/MM Value Range DopplerValue Range LVIDd 2D 4.41 cm [ 4.20 - 5.80 ] AV Peak Vel1.8 m/s [ 1.0 - 1.7 ] IVSd 2D 0.79 cm [ 0.60 - 1.00 ] AV Peak PG12.96 mmHg LVPWd 2D 0.82 cm [ 0.60 - 1.00 ] AV Mean PG8 mmHg LV Thickness Ratio 1.0 AV VTI41.4 cm LV Mass 2D 113.50 g LVOT Peak Vel0.6 m/s [ 0.7 - 1.1 ] LV Mass Index 2D 71.86 g/m2 LVOT Peak PG1.44 mmHg RWT 0.37 LVOT Mean PG1 mmHg EDV Mod BP 135.00 ml [ 62.00 - 150.00 ] LVOT VTI15.0 cm LV EDV Index 85.47 ml/m2 LVOT Diam1.85 cm ESV Mod BP 87.70 ml [ 21.00 - 61.00 ] WOO VTI0.97 cm2 EF Mod BP 35 % [ 52 - 72 ] LVOT/AV VTI0.36 - Dimensionless index (DVI) LV GLS -10.8 % [ -25.0 - -18.0 ] MV E Peak Vel0.5 m/s [ 0.6 - 1.3 ] LA Length 4C 5.87 cm MV A Peak Vel0.7 m/s [ 1.0 - 1.2 ] LA Length 2C 5.25 cm MV E/A0.7 ratio [ 0.8 - 1.5 ] LA Volume BP 36.06 ml MV Decel Nvnf937.52 msec [ 104.00 - 258.00 ] LA Volume Index 22.83 ml/m2 [ 16.00 - 34.00 ] Med E` Vel3.1 cm/sec [ 8.0 - 25.0 ] RV Base Dimen 2D 3.2 cm [ 2.5 - 4.2 ] Lat E` Vel5.0 cm/sec [ 10.0 - 25.0 ] TAPSE 0.73 cm [ 1.71 - 5.00 ] Average E/E`12.35 RA Volume 29.16 ml RV S`5.25 cm/sec RA Volume Index 18.46 ml/m2 PV Peak Vel0.7 m/s [ 0.4 - 0.8 ] Asc Ao Diam 2D 2.75 cm PV Peak PG1.96 mmHg Asc Ao Index1.74 cm/m2 Electronically Signed By: Everette Ortega MD 06/05/2025 3:44:37 PM CDT us Clemente Serrano MD CV ECHO PROCEDURES Final Result * Troponin I high-sensitivity 6-hour (06/05/2025 2:13 PM CDT) Trop I hs 14 <=35 ng/L Comment: Interpretive Data For further hscTnI resources including the diagnostic algorithm and an aid in interpretation, copy and paste this link: [email or web address]/show/[email or web address] Current Interpretive Data last revised 2020. Trop I hs delta 5 ng/L [facility] Trop I hs interp Equivocal [facility] Blood 06/05/2025 2:13 PM CDT 06/05/2025 2:30 PM CDT us Clemente Serrano MD LAB BLOOD ORDERABLE S Final Result [facility] [place] [address] * (ABNORMAL) Potassium (06/05/2025 2:13 PM CDT) [facility] Potassium, pl 5.0(H) 3.3 - 4.9 mmol/L Blood 06/05/2025 2:13 PM CDT 06/05/2025 2:30 PM CDT Narrative [facility] - 06/05/2025 2:52 PM CDT Provider to discontinue after two normal results. Rick Infante NP LAB BLOOD ORDERABLES Fi nal Result Performing Organization Address [facility] Co de Phone Number [facility] [place] [address] * Troponin I high-sensitivity 4-hour (06/05/2025 12:43 PM CDT) [facility] Trop I hs 12 <=35 ng/L Comment: Interpretive Data For further hscTnI resources including the diagnostic algorithm and an aid in interpretation, copy and paste this link: [email or web address]/[email or web address] Current Interpretive Data last revised 2020. Trop I hs delta 3 ng/L [facility] Trop I hs interp Insignificant [facility] Blood 06/05/2025 12:4 3 PM CDT 06/05/2025 1:04 PM CDT Clemente Serrano MD LAB BLOOD ORDERABLE S Final Result Performing Organization Address City/[facility]/ZIP Co de Phone Number [facility] [place] [address] * POCT glucose (06/05/2025 11:17 AM CDT) [facility] Glucose, POC 185 70 - 199 mg/dL Blood 06/05/2025 11:1 7 AM CDT 06/05/2025 11:17 AM CDT Pineda Sorto MD LAB POCT ORDERABLES - DEV ICE Final Result Performing Organization Address [facility] Co de Phone Number [facility] [place] [address] * eGFR (06/05/2025 11:12 AM CDT) eGFR 83 >=60 mL/min/1. 73 m2 Comment: Interpretive Data Reference Interval Normal >/= 90 mL/min/1.73m2 Mildly decreased* 60 - 89 mL/min/1.73m2 Mildly to moderately decreased 45 - 59 mL/min/1.73m2 Moderately to severely decreased 30 - 44 mL/min/1.73m2 Severely decreased 15 - 29 mL/min/1.73m2 Kidney Failure < 15 mL/min/1.73m2 *Relative to young adult level Estimated glomerular filtration rate is determined by the 2020 CKD-EPI equation recommended by the National [employer] (A Unifying Approach to GFR Estimation: Recommendations of the NKF-ASK Task Force on Reassessing the Inclusion of Race in Diagnosing Kidney Disease, JASN 2020). The CKD-EPI equation should not be used for patients with unstable renal function and has not been validated in children and those over 70. Current interpretive data was last reviewed 2021. Blood 06/05/2025 11:1 2 AM CDT 06/05/2025 11:26 AM CDT Berta AUGUSTIN LAB BLOOD ORDERABLES Final Resu lt Performing Organization Address City/[facility]/ZIP Co de Phone Number [facility] [place] [address] * (ABNORMAL) Differential, auto (06/05/2025 11:12 AM CDT) Neutrophil abs 14.50(H) 1.50 - 6.50 K/cumm Imm gran abs 0.09 0.00 - 0.10 K/cumm [facility] Lymphocyte abs 0.56(L) 0.80 - 3.30 K/cumm [facility] Monocyte abs 0.80 0.20 - 0.80 K/cumm [facility] Eosinophil abs 0.00 0.00 - 0.50 K/cumm [facility] Basophil abs 0.01 0.00 - 0.10 K/cumm [facility] Neutrophil pct 90.8 % [facility] Comment: Interpretive Data Percent cell count reference ranges are not reported, since discordance with absolute values may lead to misinterpretation of CBC data. Current Interpretive Data was last revised on 2018. Imm gran pct 0.6 % [facility] Comment: Interpretive Data Percent cell count reference ranges are not reported, since discordance with absolute values may lead to misinterpretation of CBC data. Current Interpretive Data was last revised on 2018. Lymphocyte pct 3.5 % [facility] Comment: Interpretive Data Percent cell count reference ranges are not reported, since discordance with absolute values may lead to misinterpretation of CBC data. Current Interpretive Data was last revised on 2018. Monocyte pct 5.0 % [facility] Comment: Interpretive Data Percent cell count reference ranges are not reported, since discordance with absolute values may lead to misinterpretation of CBC data. Current Interpretive Data was last revised on 2018. Eosinophil pct 0.0 % [facility] Comment: Interpretive Data Percent cell count reference ranges are not reported, since discordance with absolute values may lead to misinterpretation of CBC data. Current Interpretive Data was last revised on 2018. Basophil pct 0.1 % [facility] Comment: Interpretive Data Percent cell count reference ranges are not reported, since discordance with absolute values may lead to misinterpretation of CBC data. Current Interpretive Data was last revised on 2018. Blood 06/05/2025 11:1 2 AM CDT 06/05/2025 11:26 AM CDT us Berta AUGUSTIN LAB BLOOD ORDERABLES Final Resu lt [facility] [place] [address] * (ABNORMAL) CBC with auto differential (06/05/2025 11:12 AM CDT) WBC 15.96(H) 3.80 - 9.90 K/cumm Hgb 10.8(L) 13.0 - 17.5 g/dL [facility] Hct 31.6(L) 38.9 - 50.3 % [facility] Plt 144(L) 150 - 400 K/cumm [facility] MPV 10.6 9.1 - 12.3 fL [facility] RBC 3.48(L) 4.30 - 5.80 M/cumm [facility] MCV 90.8 81.3 - 96.4 fL [facility] MCH 31.0 27.1 - 33.3 pg [facility] MCHC 34.2 32.3 - 35.7 g/dL [facility] RDW CV 14.6 11.1 - 14.9 % [facility] RDW SD 48.4(H) 35.7 - 48.1 fL [facility] NRBC abs 0.00 0.00 - 0.01 K/cumm [facility] Blood 06/05/2025 11:1 2 AM CDT 06/05/2025 11:26 AM CDT Berta AUGUSTIN LAB BLOOD ORDERABLES Final Resu lt Performing Organization Address City/[facility]/ZIP Co de Phone Number [facility] [place] [address] * Lactate, whole blood (06/05/2025 11:12 AM CDT) Pathologist [facility] Lactate, bld 2.0 0.7 - 2.0 mmol/L Blood 06/05/2025 11:1 2 AM CDT 06/05/2025 11:24 AM CDT Berta AUGUSTIN LAB BLOOD ORDERABLES Final Resu lt [facility] [place] [address] * (ABNORMAL) Comprehensive metabolic panel (06/05/2025 11:12 AM CDT) Sodium 141 135 - 145 mmol/L Potassium, pl 5.4(H) 3.3 - 4.9 mmol/L [facility] Chloride 109 97 - 110 mmol/L [facility] CO2 22 22 - 32 mmol/L [facility] Anion gap 10 2 - 15 mmol/L [facility] BUN 20 6 - 25 mg/dL [facility] Creatinine 0.85 0.80 - 1.30 mg/dL [facility] Glucose 185 70 - 199 mg/dL [facility] Comment: Interpretive Data Fasting glucose >/= 126 mg/dl is diagnostic for diabetes. Fasting is defined as no caloric intake for at least 8 hours. Fasting glucose between 100 mg/dl to 125 mg/dl is diagnostic of prediabetes. In a patient with classic symptoms of hyperglycemia or hyperglycemic crisis, a random glucose >/= 200 mg/dl is diagnostic for diabetes. In the absence of unequivocal hyperglycemia, results should be confirmed by repeat testing. The classification and Diagnosis of Diabetes Diabetes Care 2021; 46: S19-S40. Current interpretive data was last revised 2022. Calcium 8.5 8.5 - 10.3 mg/dL [facility] Bilirubin, total 0.7 0.1 - 1.2 mg/dL [facility] Protein, pl 6.1(L) 6.5 - 8.5 g/dL [facility] Albumin 3.2(L) 3.5 - 5.0 g/dL [facility] Alk phos 109 40 - 130 Units/L [facility] ALT 19 7 - 55 Units/L [facility] AST 28 10 - 50 Units/L [facility] Blood 06/05/2025 11:1 2 AM CDT 06/05/2025 11:26 AM CDT us Berta AUGUSTIN LAB BLOOD ORDERABLES Final Resu lt [facility] [place] [address] * ECG 12 lead (06/05/2025 11:11 AM CDT) Ventricular Rate EKG/Min 66 BPM [facility] Atrial Rate 66 BPM [facility] ND-Interval (MSEC) 206 ms [facility] QRS-Interval (MSEC) 80 ms [facility] QT-Interval (MSEC) 396 ms [facility] QTc 415 ms [facility] P [place] 84 degrees [facility] R [place] 73 degrees [facility] T [place] 130 degrees [facility] Diagnosis Atrial-paced rhythm with Premature atrial complexes Low voltage QRS 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) T wave abnormality, consider inferior ischemia Abnormal ECG When compared with ECG of 17-MAY-2016 06:28, Significant changes have occurred Confirmed by PANDA ALBERTO M.D ([id number]) on 06/08/2025 11:20:18 AM [facility] 06/05/2025 11:1 1 AM CDT 06/08/2025 11:20 AM CDT Rick Infante NP ECG ORDERABLES Final R esult [facility] * ND ARTL CATHJ/CANNULJ MNTR/TRANSFUSION SPX PRQ (06/05/2025 10:25 AM CDT) Narrative Clemente Serrano MD - 06/05/2025 10:25 AM CDT Clemente Serrano MD 06/05/2025 10:50 AM Arterial line Date/Time: 06/05/2025 10:25 AM Performed by: Domitila Jimenez MD Authorized by: Clemente Serrano MD [place] Protocol: RN Notified of Procedure: yes Informed consent: Risks, benefits, alternatives discussed and patient/safety representative/guardian agrees and accepts Patient's stated name/ matches armband: Yes Allergies confirmed: yes Consent form signed, dated, timed; matches correct patient, intended procedure and site: No consent form due to emergent status Imaging: Pertinent imaging reviewed, correctly oriented and match to patient identifiers Lab/Diag test results: Pertinent lab/diag tests reviewed and match to patient identifiers Supplies, devices and special equipment are available: yes Site/side marked: yes Immediately prior to the procedure a time out was called: a verbal verification by the procedure participants confirmed correct patient identity, correct site/side marked and visible (if applicable); agreement on procedure to be done; and correct patient positioning Indications: Indications: hemodynamic monitoring Pre-procedure details: Skin preparation: 2% Chlorhexidine Preparation: Patient was prepped and draped in sterile fashion Sedation: Sedation used: no Anesthesia (see MAR for exact dosages): Anesthesia method: Local infiltration Local anesthetic: Lidocaine 1% Procedure details: Location: Left axillary Jason's test performed: no Needle gauge: 18 G Placement technique: Ultrasound guided Ultrasound guidance used for: Real-time guidance Sterile ultrasound techniques: Sterile gel and sterile probe covers were used Number of attempts: 2 Post-procedure details: Patient tolerance of procedure: Procedure unsuccessful. Post Procedure Debrief: All guidewires, needles, sponges or other items are accounted for: yes Any special post procedure monitoring, testing or other considerations: n/a All specimens identified, labeled and matched to patient identification: n/a Responsible constitution party for transporting specimen(s) to lab determined: n/a Comments: First attempt made by med student without success. Second attempt made by this provider with initial flash but inability to advance wire. Procedure terminated after noting a hematoma. us Clemente Serrano MD IN CLINIC/BEDSIDE O RDERABLES Final Result * Troponin I high-sensitivity 2-hour (06/05/2025 10:22 AM CDT) Trop I hs 8 <=35 ng/L Comment: Interpretive Data For further hscTnI resources including the diagnostic algorithm and an aid in interpretation, copy and paste this link: [email or web address] Current Interpretive Data last revised 2020. Trop I hs delta -1 ng/L [facility] Trop I hs interp Insignificant [facility] Blood 06/05/2025 10:2 2 AM CDT 06/05/2025 10:35 AM CDT us Clemente Serrano MD LAB BLOOD ORDERABLE S Final Result [facility] [place] [address] * Drugs of Abuse Screen, Urine with Reflex Confirmation (06/05/2025 10:07 AM CDT) Amphetamine, ur Not Detected CutOff 500ng/mL Comment: Interpretive Data - Amphetamines: Samples containing greater than 500 ng/mL d-methamphetamine or other cross-reacting amphetamine compounds are reported as positive. Amphetamine immunoassays are subject to significant false positive rates due to cross-reactivity of non-amphetamine drugs. Confirmatory testing required for definitive results. Current Interpretive Data was last reviewed 2023. Barbiturates, ur Not Detected CutOff 200ng/mL [facility] Comment: Interpretive Data - Barbiturates: Samples containing greater than 200 ng/mL secobarbital or other cross-reacting barbiturate compounds are reported as positive. False positive and false negative results are possible. Confirmatory testing required for definitive results. Current Interpretive Data was last reviewed 2023. Benzodiazepines, ur Not Detected CutOff 100ng/mL [facility] Comment: Interpretive Data - Benzodiazepines: Samples containing greater than 100 ng/mL nordiazepam or other cross-reacting compounds are reported as positive. False positive and false negative results are possible. Confirmatory testing required for definitive results. Current Interpretive Data was last reviewed 2023. Cannabinoids, ur Not Detected CutOff 50 ng/mL [facility] Comment: Interpretive Data - Cannabinoids: Samples containing greater than 50 ng/mL delta-9 THC -COOH or other cross- reacting compounds are reported as positive. False positive and false negative results are possible. Confirmatory testing required for definitive results. Current Interpretive Data was last reviewed 2023. Cocaine, ur Not Detected CutOff 150ng/mL [facility] Comment: Interpretive Data - Cocaine: Samples containing greater than 150 ng/mL benzoylecgonine or other cross- reacting compounds are reported as positive. False positive and false negative results are possible. Confirmatory testing required for definitive results. Current Interpretive Data was last reviewed 2023. Fentanyl, Ur Not Detected CutOff 5 ng/mL [facility] Comment: Interpretive Data - Fentanyl: Samples containing greater than 5 ng/mL norfentanyl, fentanyl, or other cross-reacting fentanyl compounds are reported as positive. False positive and false negative results are possible. Confirmatory testing required for definitive results. Current Interpretive Data was last reviewed 2024. Methadone, ur Not Detected CutOff 300ng/mL [facility] Comment: Interpretive Data - Methadone: Samples containing greater than 300 ng/mL d,l-methadone or other cross-reacting compounds are reported as positive. False positive and false negative results are possible. Confirmatory testing required for definitive results. Current Interpretive Data was last reviewed 2023. Opiates, ur Not Detected CutOff 300ng/mL [facility] Comment: Interpretive Data - Opiates: Samples containing greater than 300 ng/mL morphine or other cross-reacting compounds are reported as positive. False positive and false negative results are possible. Confirmatory testing required for definitive results. Current Interpretive Data was last reviewed 2023. Oxycodone, ur Not Detected CutOff 100ng/mL [facility] Comment: Interpretive Data - Oxycodone: Samples containing greater than 100 ng/mL oxycodone or other cross-reacting compounds are reported as positive. False positive and false negative results are possible. Confirmatory testing required for definitive results. Current Interpretive Data was last reviewed 2023. Phencyclidine, ur Not Detected CutOff 25 ng/mL [facility] Comment: Interpretive Data - Phencyclidine: Samples containing greater than 25 ng/mL phencyclidine or other cross-reacting compounds are reported as positive. False positive and false negative results are possible. Confirmatory testing required for definitive results. Current Interpretive Data was last reviewed 2023. Urine Creatinine 85 mg/dL [facility] Comment: Interpretive Data Urine Creatinine: < 10 mg/dL is extremely dilute = or > 10 but < 20 mg/dL is dilute = or > 20 mg/dL is normal Current Interpretive Data was last revised on 2017. Urine 06/05/2025 10:0 7 AM CDT 06/05/2025 10:16 AM CDT Narrative [facility] - 06/05/2025 10:47 AM CDT Drug of Abuse screening is performed by immunoassay for medical purposes only. This is not to be used for Pain Management purposes. If Detected, confirmation testing will be performed for Amphetamines, Cocaine, Fentanyl, Methadone, Opiates, Oxycodone or Phencyclidine. us Clemente Serrano MD LAB URINE ORDERABLE S Final Result Performing Organization Address [facility]/ZIP Co de Phone Number [facility] [place] [address] * (ABNORMAL) Urinalysis reflex to microscopic and culture Urine (06/05/2025 10:07 AM CDT) Color, ur Straw Yellow Clarity, ur Clear Clear [facility] Specific gravity, ur 1.038(H) 1.003 - 1.030 [facility] pH, urine 6.0 [facility] Comment: Interpretive Data U rine pH is affected by diet, medications, systemic acid-base disturbances, and renal tubular function. pH may affect urinary stone formation. For example, urine pH below 6.0 may help reduce the tendency for calcium phosphate stones and pH greater than 6.0 may reduce the tendency for uric acid stone formation. Source: [facility] Current Interpretive Data was last revised on 2017 Protein, ur ql Negative Negative [facility] Glucose, ur ql Negative Negative [facility] Ketones, ur Negative Negative [facility] Bilirubin, ur Negative Negative [facility] Blood, ur Negative Negative [facility] Urobilinogen, ur <2.0 <2.0 mg/dL [facility] Nitrite, ur Negative Negative [facility] Leukocyte esterase, ur Negative Negative [facility] UA reflex comment Reflex conditions for microscopic UA and culture not met. [facility] Urine 06/05/2025 10:0 7 AM CDT 06/05/2025 10:13 AM CDT us Domitila Jimenez MD LAB MICROBIOLOGY - GENE RAL ORDERABLES Final Result Performing Organization Address [facility]/ZIP Co de Phone Number [facility] [place] [address] * ECG 12-LEAD (06/05/2025 9:37 AM CDT) Narrative [facility] - 06/05/2025 9:37 AM CDT Clemente Serrano MD 06/05/2025 9:38 AM ECG 12 lead Date/Time: 06/05/2025 9:37 AM Performed by: Clemente Serrano MD Authorized by: Clemente Serrano MD Comments: Atrial paced rhythm with low-voltage QRS. Incomplete right bundle branch block. us Clemente Serrano MD ECG ORDERABLES Fin al Result Performing Organization Address [facility] Co de Phone Number [facility] * Prepare RBC: 1 Units (06/05/2025 9:28 AM CDT) Product code [id number] Unit Number [id number] [facility] Product Blood Type OPOS [facility] Dispense Status PRESUMED TRANSFUSED [facility] Blood 06/05/2025 9:28 AM CDT 06/05/2025 9:27 AM CDT Narrative [facility] - 06/06/2025 12:55 AM CDT Are special requirements needed? (All products are leukoreduced and CMV- safe)- >No Date required:-[id number] LRRBC # of [id number] Reasons:-Hemorrhagic shock/Life-threatening bleeding} us Domitila Jimenez MD BLOOD BANK PRODUCT ORDE RABLES Final Result Performing Organization Address [facility] Co de Phone Number [facility] [place] [address] * ED CHEST TUBE INSERTION (06/05/2025 9:21 AM CDT) Narrative Clemente Serrano MD - 06/05/2025 9:21 AM CDT Clemente Serrano MD 06/05/2025 10:03 AM Chest Tube Insertion Date/Time: 06/05/2025 9:21 AM Performed by: Domitila Jimenez MD Authorized by: Clemente Serrano MD RN Notified of Procedure: yes Informed consent: Risks, benefits, alternatives discussed and patient/safety representative/guardian agrees and accepts Patient's stated name/ matches armband: Yes Allergies confirmed: yes Consent form signed, dated, timed; matches correct patient, intended procedure and site: Yes Imaging: Pertinent imaging reviewed, correctly oriented and match to patient identifiers Lab/Diag test results: Pertinent lab/diag tests reviewed and match to patient identifiers Supplies, devices and special equipment are available: yes Site/side marked: yes Immediately prior to the procedure a time out was called: a verbal verification by the procedure participants confirmed correct patient identity, correct site/side marked and visible (if applicable); agreement on procedure to be done; and correct patient positioning Risks discussed: Bleeding, damage to surrounding structures, infection, nerve damage, pain and incomplete drainage Alternatives discussed: Delayed treatment, no treatment and alternative treatment Skin preparation: ChloraPrep Preparation: Patient was prepped and draped in the usual sterile fashion Sedation used: yes Anesthesia method: Local infiltration Local anesthetic: Lidocaine 1% Indications: Chest trauma and pneumothorax (Hemothorax) Placement location: R lateral Scalpel size: 10 Tube size (Fr): 28 Dissection instrument: Finger and Dipti clamp Ultrasound guidance: no Tension pneumothorax: no Tube connected to: Suction Drainage characteristics: Bloody Suture material: 2-0 silk Dressing: Petrolatum-impregnated gauze and 4x4 sterile gauze Post-insertion x-ray findings: tube in good position Patient tolerance of procedure: Tolerated well, no immediate complications Any special post procedure monitoring, testing or other considerations: yes (enter/request order) us Clemente Serrano MD IN CLINIC/BEDSIDE O RDERABLES Final Result * Procedural Sedation (06/05/2025 9:16 AM CDT) Narrative Clemente Serrano MD - 06/05/2025 9:16 AM CDT Clemente Serrano MD 06/05/2025 10:49 AM Procedural Sedation Date/Time: 06/05/2025 9:16 AM Performed by: Alexey Collins MD Authorized by: Clemente Serrano MD [place] Protocol: RN Notified of Procedure: yes Informed consent: Risks, benefits, alternatives discussed and patient/safety representative/guardian agrees and accepts Patient's stated name/ matches armband: Yes Allergies confirmed: yes Consent form signed, dated, timed; matches correct patient, intended procedure and site: Yes Imaging: Pertinent imaging reviewed, correctly oriented and match to patient identifiers Lab/Diag test results: Pertinent lab/diag tests reviewed and match to patient identifiers Supplies, devices and special equipment are available: yes Site/side marked: yes Immediately prior to the procedure a time out was called: a verbal verification by the procedure participants confirmed correct patient identity, correct site/side marked and visible (if applicable); agreement on procedure to be done; and correct patient positioning Indications: Sedation purpose: Chest tube insertion/removal Procedure requiring sedation performed by: Physician performing sedation Pre-sedation assessment: Intended level of sedation: Moderate (conscious sedation) NPO status caution: unable to specify NPO status ASA classification: class 3 - patient with severe systemic disease Mallampati score: III - soft palate, base of uvula visible Planned medication(s): Ketamine Dosing plan: Dose titration Pre-sedation assessment completed and reviewed: Airway WNL, Lungs WNL, Heart WNL and Teeth - Other (note in comments) (No teeth in upper or lower) Pre-sedation assessment reviewed: 06/05/2025 8:35 AM Immediate pre-procedure details: Reassessment: Patient reassessed immediately prior to procedure Reviewed: Vital signs, relevant labs/tests and current medications Verified: bag valve mask available, emergency equipment available, intubation equipment available, IV patency confirmed, oxygen available and suction available Procedure details (see MAR for exact dosages): Sedation start time: 06/05/2025 8:43 AM Preoxygenation: Nonrebreather mask Sedation: Ketamine Intra-procedure monitoring: Blood pressure monitoring, continuous capnometry, frequent vital sign checks, continuous pulse oximetry and child monitor Intra-procedure events: none Sedation end time (end of provider face to face time): 06/05/2025 9:04 AM Total sedation time (minutes): 21 Post-procedure details: Post-sedation assessment completed: 06/05/2025 9:15 AM Attendance: Constant attendance by certified staff until patient recovered Recovery: Consistent with the nursing recovery record, the patient is awake or at satisfactory post-sedation level of consciousness and recovery has been unremarkable. Post-sedation assessments completed and reviewed: airway patency, cardiovascular function, mental status, nausea/vomiting, pain level, respiratory function and temperature Patient is stable for discharge or admission: yes Patient tolerance: Tolerated well, no immediate complications us Clemente Serrano MD IN CLINIC/BEDSIDE O RDERABLES Final Result * XR Chest 1 View (06/05/2025 9:12 AM CDT) Anatomical Region Laterality Modality Body, Chest N/A Computed Radiogr aphy 06/05/2025 9:57 AM CDT Impressions 06/05/2025 9:57 AM CDT Comparison to 7:01 AM. A right thoracostomy tube is in place, with reduction in size of a now small right pleural effusion. Subcutaneous gas in the right neck and right lateral chest wall, numerous right-sided rib fractures, and right lung contusion are unchanged. The left lung is clear. Prosthetic aortic valve, left subclavian transvenous pacemaker defibrillator leads overlying the right atrium and ventricle, and median sternotomy wires are unchanged. The heart size is normal. Electronically signed by: Louie Elena M.D. Narrative 06/05/2025 9:57 AM CDT EXAMINATION: 1 view chest radiograph Procedure Note Louie Elena MD - 06/05/2025 EXAMINATION: 1 view chest radiograph IMPRESSION: Comparison to 7:01 AM. A right thoracostomy tube is in place, with reduction in size of a now small right pleural effusion. Subcutaneous gas in the right neck and right lateral chest wall, numerous right-sided rib fractures, and right lung contusion are unchanged. The left lung is clear. Prosthetic aortic valve, left subclavian transvenous pacemaker defibrillator leads overlying the right atrium and ventricle, and median sternotomy wires are unchanged. The heart size is normal. Electronically signed by: Louie Elena M.D. us Clemente Serrano MD IMG XR PROCEDURES F inal Result * Troponin I high-sensitivity series (baseline, 2hr, 4hr, 6hr) (06/05/2025 8:15 AM CDT) Trop I hs 9 <=35 ng/L Comment: Interpretive Data For further hscTnI resources including the diagnostic algorithm and an aid in interpretation, copy and paste this link: https://bjhlab.testcatalog.org/show/[email or web address] Current Interpretive Data last revised 2020. Blood 06/05/2025 8:15 AM CDT 06/05/2025 8:35 AM CDT us Clemente Serrano MD LAB BLOOD ORDERABLE S Final Result Performing Organization Address City/State/ZIP Co ne Phone Number [facility] [place] [address] * (ABNORMAL) Pro B-type natriuretic peptide (06/05/2025 8:15 AM CDT) NT-proBNP 1,464(H) <=450 pg/mL Comment: Interpretive Comments: A. Dyspnea in Acute Care Setting All Ages: < 300 pg/ml, acute heart failure unlikely. < 50 yrs: 300 - 450 pg/ml, further investigation warranted. > 450 pg/ml, acute heart failure likely. 50 - 74 yrs: 300 - 900 pg/ml, further investigation warranted. > 900 pg/ml, acute heart failure likely . > or = 75 yrs: 450 - 1800 pg/ml, further investigation warranted. > 1800 pg/ml, acute heart failure likely. B. Non-acute Setting < 75 yrs < 125 pg/ml, rules out heart failure. > or = 125 pg/ml, further investigation warranted. > or = 75 yrs < 450 pg/ml, rules out heart failure. > or = 450 pg/ml, further investigation warranted. - Knowledge of each individual patient's NT-proBNP range may be more useful than using similar cut-points for every patient. Please note that marked elevations in NT-proBNP levels may be observed in state other than Left Ventricular Congestive Failure, including: acute coronary syndromes, right heart strain/failure (including pulmonary embolism and cor pulmonale), critical illness, renal failure, as well as advanced age. - References: 1. Jennifer CHÁVEZ et.al. Eur Heart J. 2006:27:330-337. 2. Milton RW, Jareth AM. J. AM Raphael Cardiol: Cardiovasc Imag. 2009;2: 216- 225. Interpretive Data Last Revised Date: 2018. Blood 06/05/2025 8:15 AM CDT 06/05/2025 8:35 AM CDT us Clemente Serrano MD LAB BLOOD ORDERABLE S Final Result [facility] [place] [address] * ND CRITICAL CARE ILL/INJURED PATIENT INIT 30-74 MIN (06/05/2025 7:11 AM CDT) Narrative Clemente Serrano MD - 06/05/2025 7:11 AM CDT Clemente Serrano MD 06/05/2025 7:11 AM Critical Care Performed by: Clemente Serrano MD Authorized by: Clemente Serrano MD Critical care provider statement: As reflected in the history, physical exam, orders, notes, and/or MDM, I was personally present while the patient was critically ill and provided critical care services for 40 minutes, excluding time involved in separately billable procedures. Critical care was necessary to treat or prevent imminent or life-threatening deterioration of the following condition(s): unstable vital signs undifferentiated shock level 1 trauma, severe traumatic condition and multiple rib fractures Critical care was time spent by me providing the following: continuous telemetry, continuous capnography, interpretation of bedside monitors, imaging, and arterial/venous lab draws, serial bedside patient exams, serial laboratory checks and resuscitation with fluids frequent neurologic exams supplemental oxygen and incentive spirometry, pulmonary toilet I provided emergent necessary critical care medicine services to this patient. I ordered and reviewed test results and/or imaging studies. I spent time discussing the management of this critically ill patient with consultants and the medical staff. I admitted this patient to an Intensive Care unit (ICU) and discussed management with the admitting team. I spent time documenting in the medical record. us Clemente Serrano MD IN CLINIC/BEDSIDE O RDERABLES Final Result * CT Recon Thoracic and Lumbar Spine W Contrast (C) (06/05/2025 7:09 AM CDT) Anatomical Region Laterality Modality Spine N/A Computed Tomogra phy 06/05/2025 8:58 AM CDT Impressions 06/05/2025 3:18 PM CDT 1. No acute intracranial hemorrhage. 2. No evidence of acute fracture in the cervical, thoracic, or lumbar spine. 3. Extensive soft tissue emphysema within the deep neck spaces. Partially imaged right pneumothorax and right rib fractures are better evaluated on the existing CT chest abdomen pelvis. 4. Multilevel degenerative changes in the spine, most pronounced at L4-L5 and L5-S1 as described above. Dictated by: Kiya Patel M.D. The radiology attending physician has personally reviewed this study, and had reviewed and/or edited this written report and agrees with it. Electronically signed by: Ricky Alan M.D. Narrative 06/05/2025 3:18 PM CDT EXAMINATION: 1. CT head without contrast 2. CT of the cervical spine without contrast 3. CT of the thoracic spine with contrast 4. CT of the lumbar spine with contrast HISTORY: 89 years-old Male with Head trauma, moderate-severe. TECHNIQUE: CT of the head was performed with images acquired from skull base to vertex without intravenous contrast. CT of the cervical spine was performed according to the standard protocol without intravenous contrast. Dedicated reconstructions of the thoracic and lumbar spine were generated using data from a CT of the chest, abdomen, and pelvis acquired with intravenous contrast according to standard protocol. COMPARISON: None Available. FINDINGS: HEAD: Chronic right parietal encephalomalacia.There is no acute intracranial hemorrhage. Ventricles are of normal size and morphology. No mass effect or midline shift is present. The martínez-white matter differentiation is normal. Scattered ill-defined hypodensities in the periventricular and subcortical white matter are likely sequela of chronic small vessel ischemic change. There is parenchymal volume loss. There are atherosclerotic calcifications of the intracranial vessels. There are bilateral lens replacements. The visualized portions of the orbits are otherwise normal. The visualized portions of the mastoids are normal. Minimal left sided sinus disease in the maxillary sinus. No fractures are identified. CERVICAL SPINE: There is subcutaneous gas along the right posterior neck which is also seen on the thoracic and lumbar portion of the imaging. This extends into the retropharyngeal space. There is no acute fracture. Vertebral bodies are normal in height without compression fractures. Multilevel degenerative disc disease. The craniocervical junction is normal. Limited views of the skull base appear normal. The sphenoid sinus is well aerated. No soft tissue abnormality is identified. THORACIC SPINE: There is a right pneumothorax and left pulmonary nodule which is better evaluated on concurrent chest imaging. There are partially imaged right rib fractures also better evaluated on chest and abdomen imaging. There are 12 rib-bearing thoracic vertebra. There is thoracic kyphosis. Vertebral bodies are normal in height without compression fractures. 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 The thoracic aorta is normal. LUMBAR SPINE: There is slight retrolisthesis of L5 on S1. There is no acute fracture. The vertebral bodies are normal in height without compression fractures. There are multilevel degenerative changes in the lumbar spine resulting in mild to moderate spinal canal stenosis at L4-L5 and up to moderate spinal canal stenosis at L5-S1. There is moderate bilateral neural foraminal stenosis at L4-L and moderate to severe bilateral neuroforaminal stenosis L5-S1. The abdominal aorta is atherosclerotic. Procedure Note Ricky Alan MD - 06/05/2025 EXAMINATION: 1. CT head without contrast 2. CT of the cervical spine without contrast 3. CT of the thoracic spine with contrast 4. CT of the lumbar spine with contrast HISTORY: 89 years-old Male with Head trauma, moderate-severe. TECHNIQUE: CT of the head was performed with images acquired from skull base to vertex without intravenous contrast. CT of the cervical spine was performed according to the standard protocol without intravenous contrast. Dedicated reconstructions of the thoracic and lumbar spine were generated using data from a CT of the chest, abdomen, and pelvis acquired with intravenous contrast according to standard protocol. COMPARISON: None Available. FINDINGS: HEAD: Chronic right parietal encephalomalacia.There is no acute intracranial hemorrhage. Ventricles are of normal size and morphology. No mass effect or midline shift is present. The martínez-white matter differentiation is normal. Scattered ill-defined hypodensities in the periventricular and subcortical white matter are likely sequela of chronic small vessel ischemic change. There is parenchymal volume loss. There are atherosclerotic calcifications of the intracranial vessels. There are bilateral lens replacements. The visualized portions of the orbits are otherwise normal. The visualized portions of the mastoids are normal. Minimal left sided sinus disease in the maxillary sinus. No fractures are identified. CERVICAL SPINE: There is subcutaneous gas along the right posterior neck which is also seen on the thoracic and lumbar portion of the imaging. This extends into the retropharyngeal space. There is no acute fracture. Vertebral bodies are normal in height without compression fractures. Multilevel degenerative disc disease. The craniocervical junction is normal. Limited views of the skull base appear normal. The sphenoid sinus is well aerated. No soft tissue abnormality is identified. THORACIC SPINE: There is a right pneumothorax and left pulmonary nodule which is better evaluated on concurrent chest imaging. There are partially imaged right rib fractures also better evaluated on chest and abdomen imaging. There are 12 rib-bearing thoracic vertebra. There is thoracic kyphosis. Vertebral bodies are normal in height without compression fractures. 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 The thoracic aorta is normal. LUMBAR SPINE: There is slight retrolisthesis of L5 on S1. There is no acute fracture. The vertebral bodies are normal in height without compression fractures. There are multilevel degenerative changes in the lumbar spine resulting in mild to moderate spinal canal stenosis at L4-L5 and up to moderate spinal canal stenosis at L5-S1. There is moderate bilateral neural foraminal stenosis at L4-L and moderate to severe bilateral neuroforaminal stenosis L5-S1. The abdominal aorta is atherosclerotic. IMPRESSION: 1. No acute intracranial hemorrhage. 2. No evidence of acute fracture in the cervical, thoracic, or lumbar spine. 3. Extensive soft tissue emphysema within the deep neck spaces. Partially imaged right pneumothorax and right rib fractures are better evaluated on the existing CT chest abdomen pelvis. 4. Multilevel degenerative changes in the spine, most pronounced at L4-L5 and L5-S1 as described above. Dictated by: Kiya Patel M.D. The radiology attending physician has personally reviewed this study, and had reviewed and/or edited this written report and agrees with it. Electronically signed by: Ricky Alan M.D. Kit Majano MD [facility] [place] PROCEDURES Final R esult * CT Head and Cervical Spine WO Contrast (06/05/2025 7:09 AM CDT) Anatomical Region Laterality Modality Head and Neck N/A Computed Tomogra phy 06/05/2025 8:58 AM CDT Impressions 06/05/2025 3:18 PM CDT 1. No acute intracranial hemorrhage. 2. No evidence of acute fracture in the cervical, thoracic, or lumbar spine. 3. Extensive soft tissue emphysema within the deep neck spaces. Partially imaged right pneumothorax and right rib fractures are better evaluated on the existing CT chest abdomen pelvis. 4. Multilevel degenerative changes in the spine, most pronounced at L4-L5 and L5-S1 as described above. Dictated by: Kiya Patel M.D. The radiology attending physician has personally reviewed this study, and had reviewed and/or edited this written report and agrees with it. Electronically signed by: Ricky Alan M.D. Narrative 06/05/2025 3:18 PM CDT EXAMINATION: 1. CT head without contrast 2. CT of the cervical spine without contrast 3. CT of the thoracic spine with contrast 4. CT of the lumbar spine with contrast HISTORY: 89 years-old Male with Head trauma, moderate-severe. TECHNIQUE: CT of the head was performed with images acquired from skull base to vertex without intravenous contrast. CT of the cervical spine was performed according to the standard protocol without intravenous contrast. Dedicated reconstructions of the thoracic and lumbar spine were generated using data from a CT of the chest, abdomen, and pelvis acquired with intravenous contrast according to standard protocol. COMPARISON: None Available. FINDINGS: HEAD: Chronic right parietal encephalomalacia.There is no acute intracranial hemorrhage. Ventricles are of normal size and morphology. No mass effect or midline shift is present. The martínez-white matter differentiation is normal. Scattered ill-defined hypodensities in the periventricular and subcortical white matter are likely sequela of chronic small vessel ischemic change. There is parenchymal volume loss. There are atherosclerotic calcifications of the intracranial vessels. There are bilateral lens replacements. The visualized portions of the orbits are otherwise normal. The visualized portions of the mastoids are normal. Minimal left sided sinus disease in the maxillary sinus. No fractures are identified. CERVICAL SPINE: There is subcutaneous gas along the right posterior neck which is also seen on the thoracic and lumbar portion of the imaging. This extends into the retropharyngeal space. There is no acute fracture. Vertebral bodies are normal in height without compression fractures. Multilevel degenerative disc disease. The craniocervical junction is normal. Limited views of the skull base appear normal. The sphenoid sinus is well aerated. No soft tissue abnormality is identified. THORACIC SPINE: There is a right pneumothorax and left pulmonary nodule which is better evaluated on concurrent chest imaging. There are partially imaged right rib fractures also better evaluated on chest and abdomen imaging. There are 12 rib-bearing thoracic vertebra. There is thoracic kyphosis. Vertebral bodies are normal in height without compression fractures. 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 The thoracic aorta is normal. LUMBAR SPINE: There is slight retrolisthesis of L5 on S1. There is no acute fracture. The vertebral bodies are normal in height without compression fractures. There are multilevel degenerative changes in the lumbar spine resulting in mild to moderate spinal canal stenosis at L4-L5 and up to moderate spinal canal stenosis at L5-S1. There is moderate bilateral neural foraminal stenosis at L4-L and moderate to severe bilateral neuroforaminal stenosis L5-S1. The abdominal aorta is atherosclerotic. Procedure Note Ricky Alan MD - 06/05/2025 EXAMINATION: 1. CT head without contrast 2. CT of the cervical spine without contrast 3. CT of the thoracic spine with contrast 4. CT of the lumbar spine with contrast HISTORY: 89 years-old Male with Head trauma, moderate-severe. TECHNIQUE: CT of the head was performed with images acquired from skull base to vertex without intravenous contrast. CT of the cervical spine was performed according to the standard protocol without intravenous contrast. Dedicated reconstructions of the thoracic and lumbar spine were generated using data from a CT of the chest, abdomen, and pelvis acquired with intravenous contrast according to standard protocol. COMPARISON: None Available. FINDINGS: HEAD: Chronic right parietal encephalomalacia.There is no acute intracranial hemorrhage. Ventricles are of normal size and morphology. No mass effect or midline shift is present. The martínez-white matter differentiation is normal. Scattered ill-defined hypodensities in the periventricular and subcortical white matter are likely sequela of chronic small vessel ischemic change. There is parenchymal volume loss. There are atherosclerotic calcifications of the intracranial vessels. There are bilateral lens replacements. The visualized portions of the orbits are otherwise normal. The visualized portions of the mastoids are normal. Minimal left sided sinus disease in the maxillary sinus. No fractures are identified. CERVICAL SPINE: There is subcutaneous gas along the right posterior neck which is also seen on the thoracic and lumbar portion of the imaging. This extends into the retropharyngeal space. There is no acute fracture. Vertebral bodies are normal in height without compression fractures. Multilevel degenerative disc disease. The craniocervical junction is normal. Limited views of the skull base appear normal. The sphenoid sinus is well aerated. No soft tissue abnormality is identified. THORACIC SPINE: There is a right pneumothorax and left pulmonary nodule which is better evaluated on concurrent chest imaging. There are partially imaged right rib fractures also better evaluated on chest and abdomen imaging. There are 12 rib-bearing thoracic vertebra. There is thoracic kyphosis. Vertebral bodies are normal in height without compression fractures. 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 The thoracic aorta is normal. LUMBAR SPINE: There is slight retrolisthesis of L5 on S1. There is no acute fracture. The vertebral bodies are normal in height without compression fractures. There are multilevel degenerative changes in the lumbar spine resulting in mild to moderate spinal canal stenosis at L4-L5 and up to moderate spinal canal stenosis at L5-S1. There is moderate bilateral neural foraminal stenosis at L4-L and moderate to severe bilateral neuroforaminal stenosis L5-S1. The abdominal aorta is atherosclerotic. IMPRESSION: 1. No acute intracranial hemorrhage. 2. No evidence of acute fracture in the cervical, thoracic, or lumbar spine. 3. Extensive soft tissue emphysema within the deep neck spaces. Partially imaged right pneumothorax and right rib fractures are better evaluated on the existing CT chest abdomen pelvis. 4. Multilevel degenerative changes in the spine, most pronounced at L4-L5 and L5-S1 as described above. Dictated by: Kiya Patel M.D. The radiology attending physician has personally reviewed this study, and had reviewed and/or edited this written report and agrees with it. Electronically signed by: Ricky Alan M.D. Kit Majano MD IMG CT PROCEDURES Final R esult * CT Chest Abdomen Pelvis W Contrast (06/05/2025 7:09 AM CDT) Anatomical Region Laterality Modality Body N/A Computed Tomogra phy 06/05/2025 9:30 AM CDT Impressions 06/05/2025 10:34 AM CDT 1. Large right pneumothorax with small volume hemothorax component. No left-sided pneumothorax. 2. Extensive fractures of the right third through 10th ribs, some of which are displaced likely resulting in pleural injury. Note, contiguous segmental displaced fractures of the lateral right fifth through ninth ribs place the patient at risk for flail chest. 3. Extensive subcutaneous emphysema throughout the right chest wall tracking into the neck, favored secondary to the patient's displaced rib fractures. Small volume left mediastinum is favored secondary to subcutaneous emphysema in the neck; no CT findings of tracheal or esophageal injury are identified. 4. No acute visceral process in the abdomen or pelvis. 5. 1 cm pulmonary nodule in the left upper lobe is indeterminate. Recommend correlation with prior imaging if available. Otherwise, this can be followed with CT of the chest in 3-6 months. The Critical results were discussed with the acute care team by dictating physician at time of scan acquisition. Dictated by: Yolie Saucedo M.D. The radiology attending physician has personally reviewed this study, and had reviewed and/or edited this written report and agrees with it. Electronically signed by: Louie Elena M.D. Narrative 06/05/2025 10:34 AM CDT EXAMINATION: CT CHEST ABDOMEN PELVIS W CONTRAST HISTORY: 89-year-old, fall TECHNIQUE: Transaxial computed tomographic images of the chest, abdomen and pelvis were obtained with intravenous contrast according to the standard protocol after the uneventful administration of 75 mL Opti-Ray 350 intravenous contrast. COMPARISON: None available FINDINGS: Central airways are clear. There is a moderate to large right-sided pneumothorax with small volume hyperattenuating right pleural fluid likely reflecting associated hemothorax. There are numerous right-sided rib fractures, involving the right third through 10th ribs. Of note, segmental displaced fractures of the right fifth through ninth ribs are noted. Extensive subjacent to the masseter the right chest wall and extending superiorly to the level of the neck. Small volume pneumomediastinum is favored secondary to inferior extension from the subcutaneous gas in the neck. No findings of active bleeding in the chest is identified, although this examination is not well optimized for detection of active arterial extravasation. No CT findings of tracheal or esophageal injury are identified. The heart is normal. 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 Thoracic aorta and main pulmonary artery are normal in caliber. Three-vessel aortic arch. 1 cm pulmonary nodule in the left upper lobe. No focal hepatic lesions. No intrahepatic or extrahepatic biliary ductal dilatation. Gallbladder is unremarkable. Calcified granuloma in the spleen. Fatty replacement of the pancreas noted. Adrenal glands are normal. Renal cortices enhance symmetrically. No hydronephrosis. Urinary bladder is normal. Prostate is present. No mesenteric fluid or stranding is identified Small bowel and colon are normal in caliber without evidence of obstruction or wall thickening. A left inguinal hernia contains nonobstructed a loop of colon. No pneumoperitoneum. Normal caliber abdominal aorta. No suspicious lymphadenopathy. Please see separately dictated dedicated reconstructions of the thoracic and lumbar spine for findings in the spine. Procedure Note Louie Elena MD - 06/05/2025 EXAMINATION: CT CHEST ABDOMEN PELVIS W CONTRAST HISTORY: 89-year-old, fall TECHNIQUE: Transaxial computed tomographic images of the chest, abdomen and pelvis were obtained with intravenous contrast according to the standard protocol after the uneventful administration of 75 mL Opti-Ray 350 intravenous contrast. COMPARISON: None available FINDINGS: Central airways are clear. There is a moderate to large right-sided pneumothorax with small volume hyperattenuating right pleural fluid likely reflecting associated hemothorax. There are numerous right-sided rib fractures, involving the right third through 10th ribs. Of note, segmental displaced fractures of the right fifth through ninth ribs are noted. Extensive subjacent to the masseter the right chest wall and extending superiorly to the level of the neck. Small volume pneumomediastinum is favored secondary to inferior extension from the subcutaneous gas in the neck. No findings of active bleeding in the chest is identified, although this examination is not well optimized for detection of active arterial extravasation. No CT findings of tracheal or esophageal injury are identified. The heart is normal. 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 Thoracic aorta and main pulmonary artery are normal in caliber. Three-vessel aortic arch. 1 cm pulmonary nodule in the left upper lobe. No focal hepatic lesions. No intrahepatic or extrahepatic biliary ductal dilatation. Gallbladder is unremarkable. Calcified granuloma in the spleen. Fatty replacement of the pancreas noted. Adrenal glands are normal. Renal cortices enhance symmetrically. No hydronephrosis. Urinary bladder is normal. Prostate is present. No mesenteric fluid or stranding is identified Small bowel and colon are normal in caliber without evidence of obstruction or wall thickening. A left inguinal hernia contains nonobstructed a loop of colon. No pneumoperitoneum. Normal caliber abdominal aorta. No suspicious lymphadenopathy. Please see separately dictated dedicated reconstructions of the thoracic and lumbar spine for findings in the spine. IMPRESSION: 1. Large right pneumothorax with small volume hemothorax component. No left-sided pneumothorax. 2. Extensive fractures of the right third through 10th ribs, some of which are displaced likely resulting in pleural injury. Note, contiguous segmental displaced fractures of the lateral right fifth through ninth ribs place the patient at risk for flail chest. 3. Extensive subcutaneous emphysema throughout the right chest wall tracking into the neck, favored secondary to the patient's displaced rib fractures. Small volume left mediastinum is favored secondary to subcutaneous emphysema in the neck; no CT findings of tracheal or esophageal injury are identified. 4. No acute visceral process in the abdomen or pelvis. 5. 1 cm pulmonary nodule in the left upper lobe is indeterminate. Recommend correlation with prior imaging if available. Otherwise, this can be followed with CT of the chest in 3-6 months. The Critical results were discussed with the acute care team by dictating physician at time of scan acquisition. Dictated by: Yolie Saucedo M.D. The radiology attending physician has personally reviewed this study, and had reviewed and/or edited this written report and agrees with it. Electronically signed by: Louie Elena M.D. Kit Majano MD IM CT PROCEDURES Final R esult * Chest xray, 1 view, portable (06/05/2025 7:06 AM CDT) Anatomical Region Laterality Modality Body, Chest N/A Digital Radiogra phy 06/05/2025 10:0 5 AM CDT Impressions 06/05/2025 10:46 AM CDT 1. Numerous right-sided rib fractures with right-sided pneumothorax which is better appreciated on the CT. 2. Extensive subcutaneous tissue in the right chest and neck. 3. No pelvic fracture. Severe osteoarthritis of the left hip. Dictated by: Stefany Villalta M.D. The radiology attending physician has personally reviewed this study, and had reviewed and/or edited this written report and agrees with it. Electronically signed by: Louie Elena M.D. Narrative 06/05/2025 10:46 AM CDT EXAMINATION: XR CHEST 1 VIEW, XR PELVIS 1 OR 2 VIEWS HISTORY: Trauma COMPARISON: 05/17/2016 FINDINGS: Chest: There are numerous right-sided rib fractures. The right sided thorax is better appreciated on the CT. There is extensive subcutaneous tissue in the right chest and neck. There are sternotomy wires and a transvenous pacer defibrillator with leads overlying the right atrium and right ventricle. The left lung is clear. There is a prosthetic aortic valve. There is atherosclerotic calcification of the aorta. Pelvis: No acute pelvic or proximal femoral fracture. The right femoral head is well-seated within the acetabula. There is severe osteoarthritis of the left hip with direct articulation acetabulum and femoral head. There are scattered atherosclerotic vascular calcifications. Procedure Note Louie Elena MD - 06/05/2025 EXAMINATION: XR CHEST 1 VIEW, XR PELVIS 1 OR 2 VIEWS HISTORY: Trauma COMPARISON: 05/17/2016 FINDINGS: Chest: There are numerous right-sided rib fractures. The right sided thorax is better appreciated on the CT. There is extensive subcutaneous tissue in the right chest and neck. There are sternotomy wires and a transvenous pacer defibrillator with leads overlying the right atrium and right ventricle. The left lung is clear. There is a prosthetic aortic valve. There is atherosclerotic calcification of the aorta. Pelvis: No acute pelvic or proximal femoral fracture. The right femoral head is well-seated within the acetabula. There is severe osteoarthritis of the left hip with direct articulation acetabulum and femoral head. There are scattered atherosclerotic vascular calcifications. IMPRESSION: 1. Numerous right-sided rib fractures with right-sided pneumothorax which is better appreciated on the CT. 2. Extensive subcutaneous tissue in the right chest and neck. 3. No pelvic fracture. Severe osteoarthritis of the left hip. Dictated by: Stefany Villalta M.D. The radiology attending physician has personally reviewed this study, and had reviewed and/or edited this written report and agrees with it. Electronically signed by: Louie Elena M.D. us Clemente Serrano MD IMG XR PROCEDURES F inal Result * Pelvis xray, 1 view, portable (06/05/2025 7:06 AM CDT) Anatomical Region Laterality Modality Body, Pelvis N/A Digital Radiogra phy 06/05/2025 10:0 5 AM CDT Impressions 06/05/2025 10:46 AM CDT 1. Numerous right-sided rib fractures with right-sided pneumothorax which is better appreciated on the CT. 2. Extensive subcutaneous tissue in the right chest and neck. 3. No pelvic fracture. Severe osteoarthritis of the left hip. Dictated by: Stefany Villalta M.D. The radiology attending physician has personally reviewed this study, and had reviewed and/or edited this written report and agrees with it. Electronically signed by: Louie Elena M.D. Narrative 06/05/2025 10:46 AM CDT EXAMINATION: XR CHEST 1 VIEW, XR PELVIS 1 OR 2 VIEWS HISTORY: Trauma COMPARISON: 05/17/2016 FINDINGS: Chest: There are numerous right-sided rib fractures. The right sided thorax is better appreciated on the CT. There is extensive subcutaneous tissue in the right chest and neck. There are sternotomy wires and a transvenous pacer defibrillator with leads overlying the right atrium and right ventricle. The left lung is clear. There is a prosthetic aortic valve. There is atherosclerotic calcification of the aorta. Pelvis: No acute pelvic or proximal femoral fracture. The right femoral head is well-seated within the acetabula. There is severe osteoarthritis of the left hip with direct articulation acetabulum and femoral head. There are scattered atherosclerotic vascular calcifications. Procedure Note Louie Elena MD - 06/05/2025 EXAMINATION: XR CHEST 1 VIEW, XR PELVIS 1 OR 2 VIEWS HISTORY: Trauma COMPARISON: 05/17/2016 FINDINGS: Chest: There are numerous right-sided rib fractures. The right sided thorax is better appreciated on the CT. There is extensive subcutaneous tissue in the right chest and neck. There are sternotomy wires and a transvenous pacer defibrillator with leads overlying the right atrium and right ventricle. The left lung is clear. There is a prosthetic aortic valve. There is atherosclerotic calcification of the aorta. Pelvis: No acute pelvic or proximal femoral fracture. The right femoral head is well-seated within the acetabula. There is severe osteoarthritis of the left hip with direct articulation acetabulum and femoral head. There are scattered atherosclerotic vascular calcifications. IMPRESSION: 1. Numerous right-sided rib fractures with right-sided pneumothorax which is better appreciated on the CT. 2. Extensive subcutaneous tissue in the right chest and neck. 3. No pelvic fracture. Severe osteoarthritis of the left hip. Dictated by: Stefany Villalta M.D. The radiology attending physician has personally reviewed this study, and had reviewed and/or edited this written report and agrees with it. Electronically signed by: Louie Elena M.D. Clemente Serrano MD IMG XR PROCEDURES F inal Result * (ABNORMAL) POC Blood Gas and Chemistries, Venous - (06/05/2025 6:55 AM CDT) pH, Liam POC 7.28(L) 7.32 - 7.43 pCO2, liam POC 49 40 - 50 mmHg [facility] pO2, liam POC 28 mmHg [facility] Na, POC 139 135 - 145 mmol/L [facility] K POC 4.8 3.3 - 4.9 mmol/L [facility] Comment: Interpretive Data Not all point of care methods assess for hemolysis. Confirm with instrument and retest K+ if not consistent with clinical signs and symptoms. Current Interpretive Data was last revised on 2024. Cl, POC 111(H) 97 - 110 mmol/L [facility] Ionized Ca, POC 4.78 4.50 - 5.10 mg/dL [facility] Glucose, POC 171 70 - 199 mg/dL [facility] Lactate POC 1.4 0.7 - 2.0 mmol/L [facility] MetHb, Liam POC 0.2 0.0 - 1.9 % [facility] O2 Sat, Liam POC (Mary) 44 % [facility] Base excess, POC -3.9 mmol/L [facility] Hct, POC 32.0(L) 41.4 - 51.6 % [facility] Total Hb, POC 10.5(L) 13.8 - 17.2 g/dL [facility] Blood 06/05/2025 6:55 AM CDT 06/05/2025 6:55 AM CDT us Camden Flores MD LAB POCT ORDERABLES - DEVICE Final Result Performing Organization Address City/[facility]/ZIP Co de Phone Number [facility] [place] [address] * Thromboelastometry Panel - Heparin (06/05/2025 6:53 AM CDT) HEPTEM-CT 152 141 - 215 sec HEPTEM-A5 40 33 - 51 mm [facility] HEPTEM-A10 50 44 - 61 mm [facility] HEPTEM-A20 57 52 - 67 mm [facility] HEPTEM-MCF 59 54 - 69 mm [facility] Blood 06/05/2025 6:53 AM CDT 06/05/2025 6:57 AM CDT Piyush Kent MD LAB BLOOD ORDERABLES Genaro matthew Result - Final Performing Organization Address City/[facility] Co de Phone Number [facility] Department [place] [address] * Thromboelastometry Panel - Intrinsic (06/05/2025 6:53 AM CDT) INTEM-CT 149 139 - 205 sec INTEM-A5 42 36 - 54 mm [facility] INTEM-A10 52 46 - 63 mm [facility] INTEM-A20 59 53 - 68 mm [facility] INTEM-MCF 60 55 - 70 mm [facility] INTEM-LI60 96 93 - 100 % [facility] INTEM-ML 5 0 - 7 % [facility] Comment: Interpretive Data Rotational Thromboelastometry (KARSTEN) Sigma is a type of viscoelastic testing (VET). KARSTEN can rapidly assess hemostasis and guide blood product transfusion in cardiac surgery, liver transplantation, and other bleeding situations. It is not a replacement for conventional coagulation testing (such as PT INR, aPTT and fibrinogen). While anticoagulation medications can impact KARSTEN results, KARSTEN should not be used to monitor or manage anticoagulation. Standard VET is insensitive to the pharmacological effects of aspirin, thienopyridines, P2Y12 inhibitors and flow-dependent platelet function defects. Literature References 1. Juni Cruz, Mine Funk. Sensitivity of Viscoelastic Tests to Platelet Function. J Clin Med. 2019Oct 23 9(6) 833. 2. Joselo O, Pam CM, Dominguez N, Danny EE, Danny HB, Mayo HC, Jamel MAC, Adelina Bailey MD, Tian SS, Johanna G, Deniz HD, Maddie ML, Daryl AV, Daryl SG, Lb L, Bertha SilvestreZ, Deejay M, Giacomo P, Ammon D, Kacy MM. Viscoelastic Hemostatic Assays A Primer on Legacy and New Generation Devices. J Clin Med. 2021Nov 20 11(6) 119. 3. KARSTEN Operating Manual. Yassine Figueroa MA. Ivon 13-15. D- [id number] [facility]. Blood 06/05/2025 6:53 AM CDT 06/05/2025 6:57 AM CDT Piyush Kent MD LAB BLOOD ORDERABLES Genaro matthew Result - Final Performing Organization Address City/[facility] Co de Phone Number [facility] Department [place] [address] * Thromboelastometry Panel - Fibrinogen (06/05/2025 6:53 AM CDT) Pathologist [facility] FIBTEM-A5 11 5 - 16 mm FIBTEM-A10 13 6 - 17 mm [facility] FIBTEM-A20 14 6 - 18 mm [facility] FIBTEM-MCF 14 9 - 19 mm [facility] Blood 06/05/2025 6:53 AM CDT 06/05/2025 6:57 AM CDT Piyush Kent MD LAB BLOOD ORDERABLES Genaro matthew Result - Final Performing Organization Address City/State/[facility] Co de Phone Number [facility] Department [place] [address] * Thromboelastometry Panel - Extrinsic (06/05/2025 6:53 AM CDT) [facility] EXTEM-CT 65 51 - 73 sec EXTEM-A5 45 33 - 52 mm [facility] EXTEM-A10 55 45 - 62 mm [facility] EXTEM-A20 61 54 - 69 mm [facility] EXTEM-MCF 62 57 - 72 mm [facility] EXTEM-LI60 96 94 - 100 % [facility] EXTEM-ML 5 0 - 6 % [facility] Blood 06/05/2025 6:53 AM CDT 06/05/2025 6:57 AM CDT Piyush Kent MD LAB BLOOD ORDERABLES Genaro matthew Result - Final Performing Organization Address City/[facility] Co de Phone Number [facility] Department [place] [address] * (ABNORMAL) Differential, auto (06/05/2025 6:53 AM CDT) [facility] Neutrophil abs 15.43(H) 1.50 - 6.50 K/cumm Imm gran abs 0.08 0.00 - 0.10 K/cumm [facility] Lymphocyte abs 1.47 0.80 - 3.30 K/cumm [facility] Monocyte abs 1.02(H) 0.20 - 0.80 K/cumm [facility] Eosinophil abs 0.02 0.00 - 0.50 K/cumm [facility] Basophil abs 0.03 0.00 - 0.10 K/cumm [facility] Neutrophil pct 85.5 % [facility] Comment: Interpretive Data Percent cell count reference ranges are not reported, since discordance with absolute values may lead to misinterpretation of CBC data. Current Interpretive Data was last revised on 2018. Imm gran pct 0.4 % [facility] Comment: Interpretive Data Percent cell count reference ranges are not reported, since discordance with absolute values may lead to misinterpretation of CBC data. Current Interpretive Data was last revised on 2018. Lymphocyte pct 8.1 % [facility] Comment: Interpretive Data Percent cell count reference ranges are not reported, since discordance with absolute values may lead to misinterpretation of CBC data. Current Interpretive Data was last revised on 2018. Monocyte pct 5.7 % [facility] Comment: Interpretive Data Percent cell count reference ranges are not reported, since discordance with absolute values may lead to misinterpretation of CBC data. Current Interpretive Data was last revised on 2018. Eosinophil pct 0.1 % [facility] Comment: Interpretive Data Percent cell count reference ranges are not reported, since discordance with absolute values may lead to misinterpretation of CBC data. Current Interpretive Data was last revised on 2018. Basophil pct 0.2 % [facility] Comment: Interpretive Data Percent cell count reference ranges are not reported, since discordance with absolute values may lead to misinterpretation of CBC data. Current Interpretive Data was last revised on 2018. Blood 06/05/2025 6:53 AM CDT 06/05/2025 6:57 AM CDT us Piyush Kent MD LAB BLOOD ORDERABLES Fin al Result Performing Organization Address [facility]/ZIP Co de Phone Number [facility] [place] [address] * POCT glucose (06/05/2025 6:53 AM CDT) Glucose, POC 164 70 - 199 mg/dL Blood 06/05/2025 6:53 AM CDT 06/05/2025 6:53 AM CDT us Camden Flores MD LAB POCT ORDERABLES - DEVICE Final Result Performing Organization Address City/[facility]/ZIP Co de Phone Number [facility] [place] [address] * (ABNORMAL) CBC with auto differential (06/05/2025 6:53 AM CDT) Pathologist [facility] WBC 18.05(H) 3.80 - 9.90 K/cumm Hgb 10.0(L) 13.0 - 17.5 g/dL [facility] Hct 29.4(L) 38.9 - 50.3 % [facility] Plt 161 150 - 400 K/cumm [facility] MPV 10.7 9.1 - 12.3 fL [facility] RBC 3.12(L) 4.30 - 5.80 M/cumm [facility] MCV 94.2 81.3 - 96.4 fL [facility] MCH 32.1 27.1 - 33.3 pg [facility] MCHC 34.0 32.3 - 35.7 g/dL [facility] RDW CV 13.5 11.1 - 14.9 % [facility] RDW SD 46.3 35.7 - 48.1 fL [facility] NRBC abs 0.00 0.00 - 0.01 K/cumm [facility] Blood 06/05/2025 6:53 AM CDT 06/05/2025 6:57 AM CDT us Clemente Serrano MD LAB BLOOD ORDERABLE S Final Result [facility] [place] [address] * (ABNORMAL) aPTT (06/05/2025 6:53 AM CDT) Pathologist [facility] aPTT 25(L) 26 - 38 sec Comment: Interpretive Data Heparin therapeutic range: 66.0 - 100.0 seconds. Range based on correlation with therapeutic heparin activity range of 0.3 - 0.7 Units/mL. Current interpretive data was last revised on 2023. Blood 06/05/2025 6:53 AM CDT 06/05/2025 7:03 AM CDT Result [facility] Clemente Serrano MD LAB BLOOD ORDERABLE S Final Result Performing Organization Address [facility] de Phone Number [facility] [place] [address] * Protime-INR (06/05/2025 6:53 AM CDT) PT 12.7 10.2 - 13.5 sec INR 1.13 0.90 - 1.20 [facility] Comment: Interpretive data Oral anticoagulant therapeutic ranges: Venous thromboembolism prophylaxis or treatment: 2.0-3.0 CARDIOLOGY Standard range: 2.0-3.0 High-intensity range: 2.5-3.5 Refer to indication-specific guidelines for appropriate target ranges for prosthetic heart valve replacement. Current interpretive data was last revised on 2019. Blood 06/05/2025 6:53 AM CDT 06/05/2025 7:03 AM CDT Clemente Serrano MD LAB BLOOD ORDERABLE S Final Result Performing Organization Address [facility] de Phone Number [facility] [place] [address] * Type and screen (06/05/2025 6:53 AM CDT) Krista, indirect Negative ABO Rh O Positive [facility] Blood 06/05/2025 6:53 AM CDT 06/05/2025 7:03 AM CDT Narrative [facility] - 06/05/2025 8:11 AM CDT Has the patient had Daratumumab or Isatuximab in the past 6 months?->Unknown Clemente Serrano MD LAB BLOOD BANK TEST ORDERABLES Final Result Performing Organization Address [facility] Co de Phone Number [facility] [place] [address] * Ethanol (06/05/2025 6:53 AM CDT) Ethanol <10 <=10 mg/dL Comment: Interpretive Data Legal limit of intoxication > or = 80 mg/dL Levels > or = 400 mg/dL are potentially TOXIC. Current interpretive data was last revised on 2018. Blood 06/05/2025 6:53 AM CDT 06/05/2025 6:57 AM CDT us Clemente Serrano MD LAB BLOOD ORDERABLE S Final Result [facility] [place] [address] from Last 3 Months Insurance [facility] [employer] MEDICARE [facility] Address: [address] [address] [place] [address] MEDICARE [facility] MEDICARE ADVANTAGE Advance Directives For more information, please contact: [phone] * LIMITED - No CPR (Latest Code Status on File) Date Activated Date Inactivated Comments 06/05/2025 12:21 PM 06/16/2025 10:43 PM Question Answer Comments Provide aggressive medical m anagement before a full cardiopulmonary arrest occurs. Use antibiotics, IV Fluids, and medical treatment unless specifically selected below: No intubation Discussed with the following attending physician : [place] * Full Code Date Activated Date Inactivated Comments 06/05/2025 10:57 AM 06/05/2025 12:21 PM Care Teams Hereditary Cancer Program Coordinator Relationship Specialty Start Date End Date Valentin Braswell MD PCP - General Internal Medicine 02/06/24
== END 2025-08-05 15:59 | disposition home or self-care (01) ==
LOC: CHSLAB 16:02
PROVIDERS: PCP Internal Medicine; Visit Provider Internal Medicine
DX: I25.10 Atherosclerotic heart disease of native coronary artery without angina pectoris (principal); I50.9 Heart failure, unspecified; I11.0 Hypertensive heart disease with heart failure
CPT/HCPCS: 36415; 80053; 83880; 85027

== ENCOUNTER 2025-09-06 11:07 | Outpatient (NON) | payer MEDICARE, SELFPAY ==
[2025-09-06 11:19] LABS: Hematocrit 33.3 % (37.0-46.0); Hemoglobin 10.9 g/dL (12.4-15.3); Mean Corpuscular HGB Conc 32.7 g/dL (32-36); Mean Corpuscular Hemoglobin 30.8 pg (27.0-31.0); Mean Corpuscular Volume 94.1 fL (78.0-102.0); Platelet Count Result 207 K/mm3 (150-420); Red Blood Count 3.54 M/mm3 (4.70-6.10); White Blood Count 5.8 K/mm3 (4.8-10.8)
[2025-09-06 11:33] LABS: Alanine Aminotransferase 27 U/L (6-50); Albumin Level 3.4 g/dL (3.5-5.1); Alkaline Phosphatase 103 U/L (38-126); Anion Gap 8 mmol/L (4-12); Aspartate Amino Transferase 47 U/L (17-59); Bilirubin,Total < 0.1 mg/dL (0.2-1.3); Blood Urea Nitrogen 12 mg/dL (9-20); Calcium 8.6 mg/dL (8.4-10.2); Carbon Dioxide 25 mmol/L (22-30); Chloride 106 mmol/L (98-107); Estimated Glomerular Filt Rate > 60; Glucose 92 mg/dL (65-110); Osmolality Calculated 287 mOsm/kg (285-295); Potassium 4.1 mmol/L (3.4-5.0); Sodium 139 mmol/L (137-145); Total Protein 6.4 g/dL (6.3-8.2)
[2025-09-06 11:41] LABS: NT Pro B Type Natriuretic Pept 3440 pg/mL (19.9-100)
== END 2025-09-06 11:08 | disposition home or self-care (01) ==
LOC: CHSHH 11:10
PROVIDERS: PCP Internal Medicine; Visit Provider Internal Medicine
DX: I25.10 Atherosclerotic heart disease of native coronary artery without angina pectoris (principal); D64.9 Anemia, unspecified; I50.9 Heart failure, unspecified
CPT/HCPCS: 36415; 80053; 83880; 85027